=== PATIENT | female | born 2000 | race Caucasian/White ===

== ENCOUNTER 2023-09-12 13:07 | Outpatient (OUT) | payer MEDICAID, SELFPAY ==
[2023-09-12 15:33] LABS: HCG Quantitative 2877 mIU/mL
== END 2023-09-12 13:08 | disposition home or self-care (01) ==
LOC: LAB 13:11
PROVIDERS: PCP Family Medicine; Visit Provider Obstetrics & Gynecology
DX: N92.6 Irregular menstruation, unspecified (principal)
CPT/HCPCS: 36415; 84702

== ENCOUNTER 2023-09-14 11:02 | Outpatient (OUT) | payer MEDICAID, SELFPAY ==
[2023-09-14 12:06] LABS: HCG Quantitative 6390 mIU/mL
== END 2023-09-14 11:03 | disposition home or self-care (01) ==
LOC: LAB 11:03
PROVIDERS: PCP Family Medicine; Visit Provider Obstetrics & Gynecology
DX: N92.6 Irregular menstruation, unspecified (principal)
CPT/HCPCS: 36415; 84702

== ENCOUNTER 2023-10-20 08:22 | Outpatient (OUT) | payer MEDICAID, SELFPAY ==
--- NOTE | 2023-10-20 08:23 | US_ITS ---
[address] [address] Patient Name: BARON MORA MRN: [id number] date: 2000 Sex: F Assigned Patient Location: US Current Patient Location: US Accession/Order Number: [id number] Exam Date: 10/20/2023 08:23 Report Date: 10/20/2023 09:16 At the request of: GONZALEZ LUA Procedure: US OB transvaginal EXAMINATION: US OB transvaginal HISTORY: MISSED MENSES COMPARISON: No relevant comparison available. FINDINGS: Flores intrauterine gestation Gestational sac: 5.2 cm, 11 weeks 0 days CRL: 3.8 cm, 10 weeks 5 days Yolk sac: 5.7 mm Heart rate: 1 64 bpm The uterus is normal, anteverted, anteflexed The cervix measures 4.6 cm in length. 2 mm of dilation of the endocervical canal The right ovary is not visualized Left ovary is normal in appearance Clinical age: 10 weeks 0 days Clinical JUAN: 05/17/2024 Ultrasound age: 10 weeks 5 days Ultrasound JUAN: 05/12/2024 US/US OB transvaginal IMPRESSION: Flores intrauterine gestation measuring 10 weeks 5 days 2 mm dilatation of the endocervical canal Electronically authenticated by: MERRILL CROSS Date: 10/20/2023 09:16
== END 2023-10-20 08:23 | disposition home or self-care (01) ==
LOC: US 08:22
PROVIDERS: PCP Family Medicine; Visit Provider Obstetrics & Gynecology
DX: Z34.91 Encounter for supervision of normal pregnancy, unspecified, first trimester (principal); Z3A.10 10 weeks gestation of pregnancy; N92.6 Irregular menstruation, unspecified
CPT/HCPCS: 76817

== ENCOUNTER 2023-11-20 09:44 | Outpatient (OUT) | payer MEDICAID, SELFPAY ==
--- OUTSIDE RECORDS SUMMARY | 2023-11-20 09:49 | XMS_ITS | CCD ---
Author Name Unknown Address [address] [facility] [address] [place] [address] Organization [facility] Care Team Providers Care Bail Bondsman Name Role Phone NIDA CORONADO Consulting Unavailable NIDA CORONADO Attending Unavailable NIDA CORONADO Admitting Unavailable NADJA, DR ABDIRAHMAN Ibarra Primary Care Unavailable CHANELL, DR ROTH Consulting Unavailable CHANELL, DR ROTH Attending Unavailable NADJA, DR ABDIRAHMAN Ibarra Primary Care Unavailable CHANELL, DR ROTH Admitting Unavailable CHANELL, DR ROTH Attending Unavailable KARASIK, DR LOPEZ Consulting Unavailable CHANELL, DR ROTH Admitting Unavailable NADJA, DR ABDIRAHMAN Ibarra Primary Care Unavailable CHANELL, DR ROTH Consulting Unavailable TITUSEBER, DR JEREMIAS Phan Consulting Unavailable NADJA, DR ABDIRAHMAN Ibarra Primary Care Unavailable KARASIK, DR LOPEZ Admitting Unavailable KARASIK, DR LOPEZ Attending Unavailable KARASIK, DR LOPEZ Consulting Unavailable NADJA, DR ABDIRAHMAN Ibarra Primary Care Unavailable CHANELL, DR ROTH Attending Unavailable CHANELL, DR ROTH Admitting Unavailable NADJA, DR ABDIRAHMAN Ibarra Primary Care Unavailable CHANELL, DR ROTH Attending Unavailable CHANELL, DR ROTH Admitting Unavailable CHANELL, DR ROTH Consulting Unavailable CHANELL, DR ROTH Attending Unavailable CHANELL, DR ROTH Admitting Unavailable NADJA, DR ABDIRAHMAN Ibarra Primary Care Unavailable KARASIK, DR LOPEZ Consulting Unavailable CHANELL, DR ROTH Consulting Unavailable TITUSEBER, DR JEREMIAS Phan Consulting Unavailable NADJA, DR ABDIRAHMAN Ibarra Primary Care Unavailable CHANELL, DR ROTH Attending Unavailable KARASIK, DR LOPEZ Consulting Unavailable CHANELL, DR ROTH Admitting Unavailable CHANELL, DR ROTH Consulting Unavailable ZIEBER, DR JEREMIAS Phan Consulting Unavailable NADJA, DR ABDIRAHMAN Ibarra Primary Care Unavailable KARASIK, DR LOPEZ Consulting Unavailable KARASIK, DR LOPEZ Admitting Unavailable KARASIK, DR LOPEZ Attending Unavailable CHANELL, DR ROTH Consulting Unavailable GELA, DR JEREMIAS Phan Consulting Unavailable NADJA, DR ABDIRAHMAN Ibarra Primary Care Unavailable NIDA CORONADO Attending Unavailable IVONNE, NIDA Admitting Unavailable IVONNE, NIDA Consulting Unavailable NADJA, DR ABDIRAHMAN Ibarra Primary Care Unavailable CHANELL, DR ROTH Attending Unavailable CHANELL, DR ROTH Admitting Unavailable CHANELL, DR ROTH Consulting Unavailable ZIEBMELE, DR JEREMIAS Phan Consulting Unavailable NADJA, DR ABDIRAHMAN Ibarra Primary Care Unavailable CHANELL, DR ROTH Attending Unavailable CHANELL, DR ROTH Admitting Unavailable CHANELL, DR ROTH Consulting Unavailable CHANELL, DR ROTH Attending Unavailable NADJA, DR ABDIRAHMAN Ibarra Primary Care Unavailable CHANELL, DR ROTH Admitting Unavailable ARELI, VJ Attending Unavailable ARELI, VJ Admitting Unavailable NADJA, DR ABDIRAHMAN Ibarra Primary Care Unavailable ARELI, VJ Consulting Unavailable ZENON DELGADO Consulting Unavailable NADJA, DR ABDIRAHMAN Ibarra Primary Care Unavailable CHANELL, DR ROTH Consulting Unavailable CHANELL, DR ROTH Attending Unavailable CHANELL, DR ROTH Admitting Unavailable NADJA, DR ABDIRAHMAN Ibarra Primary Care Unavailable KARASIK, DR LOPEZ Consulting Unavailable KARASIK, DR LOPEZ Admitting Unavailable KARASIK, DR LOPEZ Attending Unavailable CHANELL, DR ROTH Consulting Unavailable TITUSEBER, DR JEREMIAS Phan Consulting Unavailable IVONNE, NIDA Attending Unavailable NADJA, DR ABDIRAHMAN Ibarra Primary Care Unavailable CHANELL, DR ROTH Consulting Unavailable IVONNE, NIDA Admitting Unavailable NIDA CORNOADO Consulting Unavailable ANTHONY PENNY Consulting Unavailable CHANELL, DR ROTH Procedure Practitioner Unavailab le Allergies Allergy Classification Reported Allergen(s) Allergy Type Date of Onset Reaction(s) Facility (1 source) Desonide Drug Allergy [facility] Repository (1 source) Erythromycin Drug Allergy 12-04-[address] [facility] Repository (1 source) Latex Drug allergy (disorder) [facility] Repository (1 source) Shellfish Drug allergy (disorder) 05-31-[address] [facility] Repository Problems Active Problems Problem Classification Problem Date Documented Da te Episodic/Chronic Abdominal pain (4 sources) Unspecified abdominal pain; Translations: [UNSPECIFIED ABDOMINAL PAIN] Onset: 06-01-2022 Episodic Genitourinary symptoms and ill-defined conditions (1 source) Hematuria, unspecified; Translations: [HEMATURIA UNSPECIFIED] Onset: 06-02-2022 Episodic Immunity disorders (1 source) Other specified disorders involving the immune mechanism, not elsewhere classified; Translations: [OTH SPEC D/O INVOLV IMMUNE MECH NEC] Onset: 08-12-2021 Chronic Other inflammatory condition of skin (1 source) Psoriasis, unspecified; Translations: [PSORIASIS UNSPECIFIED] Onset: 08-12-2021 Chronic Unclassified (1 source) CONTACT W/AND (SUSP) EXPOS COVID-19; Translations: [CONTACT W/AND (SUSP) EXPOS COVID-19] Onset: 08-12-2021 Unclassified (1 source) PERSONAL HISTORY OF COVID-19; Translations: [PERSONAL HISTORY OF COVID-19] Onset: 08-12-2021 Past or Other Problems Problem Classification Problem Date Documented Date Episodic/Chronic Hemorrhage during ; abruptio placenta; placenta previa (5 sources) Complete placenta previa NOS or without hemorrhage, third trimester; Translations: [CMPL PLAC PREVIA NOS/WO HEM 3RD TRI] Onset: 07-12-2021 Episodic Other complications of ; puerperium affecting management of mother (3 sources) Other specified complications of labor and delivery; Translations: [OTH SPECIFIED COMP LABOR AND DELIVERY] Onset: 07-14-2021 Episodic Other complications of ; puerperium affecting management of mother (1 source) Streptococcus B carrier state complicating childbirth; Translations: [STREP B [place] STATE COMP CHILDBIRTH] Onset: 08-12-2021 Episodic Other complications of ; puerperium affecting management of mother (1 source) Failed medical induction of labor; Translations: [FAILED MEDICAL INDUCTION OF LABOR] Onset: 08-12-2021 Episodic Other complications of (4 sources) Decreased movements, unspecified trimester, not applicable or unspecified; Translations: [DECR MOVEMENTS UNS TRI NA/UNS] Onset: 07-09-2021 Episodic Other complications of (4 sources) Other specified related conditions, third trimester; Translations: [OTH SPEC PREG RELATED COND 3RD TRI] Onset: 07-08-2021 Episodic Other complications of (4 sources) Malformation of placenta, unspecified, third trimester; Translations: [MALFORMATION PLACENTA UNS 3RD TRI] Onset: 07-05-2021 Episodic Other complications of (1 source) Unspecified placental disorder, third trimester; Translations: [UNS PLACENTAL DISORDER THIRD TRI] Onset: 07-23-2021 Episodic Other complications of (4 sources) Diseases of the skin and subcutaneous tissue complicating , third trimester; Translations: [DZ SKIN SUBQ TISS COMP PREG 3RD TRI] Onset: 06-21-2021 Episodic Other inflammatory condition of skin (1 source) Pruritus, unspecified; Translations: [PRURITUS UNSPECIFIED] Onset: 06-09-2021 Episodic Other and delivery including normal (9 sources) Encounter for routine follow-up; Translations: [Single live ] Onset: 07-01-2021 Episodic Other screening for suspected conditions (not mental disorders or infectious disease) (4 sources) Encounter for screening for Streptococcus B; Translations: [ENC SCR STREPTOCOCCUS B] Onset: 06-28-2021 Episodic Other skin disorders (5 sources) Other skin changes; Translations: [OTHER SKIN CHANGES] Onset: 06-07-2021 Episodic Residual codes; unclassified (1 source) 38 weeks gestation of ; Translations: [38 WEEKS GESTATION OF ] Onset: 08-12-2021 Episodic Residual codes; unclassified (1 source) 37 weeks gestation of ; Translations: [37 WEEKS GESTATION OF ] Onset: 07-22-2021 Episodic Residual codes; unclassified (1 source) 36 weeks gestation of ; Translations: [36 WEEKS GESTATION OF ] Onset: 07-23-2021 Episodic Residual codes; unclassified (1 source) 35 weeks gestation of ; Translations: [35 WEEKS GESTATION OF ] Onset: 06-23-2021 Episodic Residual codes; unclassified (1 source) 34 weeks gestation of ; Translations: [34 WEEKS GESTATION OF ] Onset: 06-18-2021 Episodic Residual codes; unclassified (1 source) 33 weeks gestation of ; Translations: [33 WEEKS GESTATION OF ] Onset: 06-09-2021 Episodic Spondylosis; intervertebral disc disorders; other back problems (1 source) Low back pain; Translations: [LOW BACK PAIN] Onset: 06-23-2021 Episodic Umbilical cord complication (1 source) Labor and delivery complicated by cord around neck, without compression, not applicable or unspecified; Translations: [L AND D COMP CORD NECK NO COMPRS NA/UNS] Onset: 08-12-2021 Episodic Results Test Name Value Interpretation Reference Range Facil ity CBC AUTO DIFFon 06-01-2022 BASO # 0.1 103/ul Normal 0.0-0.1 [facility] Comment on above: Performed By: #### C BC #### [facility] [address] [id number] Rashmi Jessica Basophils/100 WBC (Bld) 0.5 % Normal 0.2-2.0 [facility] Comment on above: Performed By: #### C BC #### [facility] [address] [address] Rashmi Jessica EO # 0.3 103/ul Normal 0.0-0.7 [facility] Comment on above: Performed By: #### C BC #### [facility] [address] [place] [address] Rashmi Jessica Eosinophils/100 WBC (Bld) 3.3 % Normal 0.9-7.0 [facility] Comment on above: Performed By: #### C BC #### [facility] [address] [place] [address] Rashmi Jessica Erythrocyte distribution width (RBC) [Ratio] 13.5 % Normal 11.0-15.0 [facility] Comment on above: Performed By: #### C BC #### [facility] [address] [place], [place] [id number] Rashmi Jessica Hematocrit (Bld) [Volume fraction] 41.8 % Normal 36.0-48.0 [facility] Comment on above: Performed By: #### C BC #### [facility] [address] [place] [address] Rashmi Jessica Hemoglobin (Bld) [Mass/Vol] 13.9 g/dL Normal 12.0-16.[address] [facility] Comment on above: Performed By: #### C BC #### [facility] [address] [place] [address] Rashmi Jessica IG # 0.02 10e3/ul Normal 0.00-0.03 [facility] Comment on above: Performed By: #### C BC #### [facility] [address] [id number] Rashmi Jessica IG % 0.2 % Normal 0.0-0.[address] [facility] Comment on above: Performed By: #### C BC #### [facility] [address] [place] [address] Rashmi Jessica LYMPH # 2.6 103/ul Normal 1.2-3.[address] [facility] Comment on above: Performed By: #### C BC #### [facility] [address] [place], [place] [id number] Rashmi Jessica Lymphocytes/100 WBC (Bld) 27.8 % Normal 20.5-60.[address] [facility] Comment on above: Performed By: #### C BC #### [facility] [address] [place] [address] Rashmi Jessica MANUAL DIFF REQ NO Normal [facility] Comment on above: Performed By: #### C BC #### [facility] [address] [place] [address] Rashmi Jessica MCH (RBC) [Entitic mass] 27.5 pg Normal 26.7-34.0 [facility] Comment on above: Performed By: #### C BC #### [facility] [address] [place] [address] Rashmi Jessica MCHC (RBC) [Mass/Vol] 33.3 g/dL Normal 29.9-35.[address] [facility] Comment on above: Performed By: #### C BC #### [facility] [address] [place] [address] Rashmi Jessica MCV (RBC) [Entitic vol] 82.8 fL Normal 81.0-99.[address] [facility] Comment on above: Performed By: #### C BC #### [facility] [address] [place], [place] [phone] Rashmi Jessica MONO # 1.2 103/ul Critically high 0.3-0.8 [facility] Comment on above: Performed By: #### C BC #### [facility] [address] [place], [place] [phone] Rashmi Jessica Monocytes/100 WBC (Bld) 12.6 % Critically high 1.7-12.0 [facility] Comment on above: Performed By: #### C BC #### [facility] [address] [place], [place] [phone] Rashmi Lopez NEUT # 5.2 103/ul Normal 1.4-6.5 [facility] Comment on above: Performed By: #### C BC #### [facility] [address] [place], [place] [phone] Rashmi Lopez Neutrophils/100 WBC (Bld) 55.6 % Normal 43.0-75.0 [facility] Comment on above: Performed By: #### C BC #### [facility] [address] [place], [place] [phone] Rashmi Lopez Platelet mean volume (Bld) [Entitic vol] 9.4 fL Critically low 9.5-13.5 [facility] Comment on above: Performed By: #### C BC #### [facility] [address] [place], [place] [address] Rashmi Lopez PLT 459 103/ul Critically high 150-450 [facility] Comment on above: Performed By: #### C BC #### [facility] [address] [place], [place] [address] Rashmi Lopez RBC 5.05 106/ul Normal 4.20-5.[address] [facility] Comment on above: Performed By: #### C BC #### [facility] [address] [place], [place] [phone] Rashmi Lopez WBC 9.4 103/ul Normal 4.0-11.0 [facility] Comment on above: Performed By: #### C BC #### [facility] [address] [place] [address] ABD/PELVIS WO CONon 06-01 CT ABD/PELVIS WO CON EXAMINATION: CT ABD/PELVIS WO CON, 06/01/2022 12:02 AM EDT HISTORY: CALCULUS OF KIDNEY COMPARISON: None. TECHNIQUE: CT scan of the abdomen and pelvis was performed without IV contrast. CT dose reduction technique was used, including Automated Exposure Control. FINDINGS: The visualized portions of the lung bases are clear. Abdomen: Please note that the sensitivity for detection of focal lesions or vascular disease is markedly reduced without intravenous contrast. The liver and spleen are unremarkable. There is no intra or extrahepatic biliary duct dilatation. The gallbladder is unremarkable. There is an indeterminate right renal cystic structure measuring up to 1.4 x 1.3 cm (series 3, image 52). There is mild prominence of the left renal collecting system with no renal or ureteral calculi seen. The pancreas, adrenal glands, and bowel loops, including the appendix, are unremarkable. There is no mesenteric or retroperitoneal lymphadenopathy. Pelvis: The bladder and rectum are unremarkable. There is no iliac or inguinal lymphadenopathy. The uterus is present. The left ovary appears within normal limits by CT. The right ovary is not well evaluated. A suspected pelvic phlebolith is noted on the left. Bone windows show no aggressive osseous lesions. IMPRESSION: 1. Mild prominence of the left renal collecting system with no renal or ureteral calculi seen. A suspected pelvic phlebolith is seen on the left. 2. Normal appendix. 3. Indeterminate right renal cystic structure measuring up to 1.4 x 1.3 cm. Further evaluation with a nonemergent outpatient ultrasound or contrast-enhanced MRI examination is recommended. Electronically authenticated by: Pito DELGADO Date: 2022-06-01 01:26 Normal [facility] ER URINE PROFILEon 2 Bilirubin Ql (U) Negative Normal NEGATIVE [facility] Comment on above: Performed By: #### C BC #### [facility] [address] [place] [address] Rashmi Jessica Clarity (U) CLEAR Normal CLEAR [facility] Comment on above: Performed By: #### C BC #### [facility] [address] [place], [place] [phone] Rashmi Jessica Color (U) LT. YELLOW Normal YELLOW [facility] Comment on above: Performed By: #### C BC #### [facility] [address] [place], [place] [phone] Rashmi Jessica ERUAHD A micrscopic examination will be performed if indicated. Normal [facility] Comment on above: Performed By: #### C BC #### [facility] [address] [place], [place] [address] Rashmi Jessica Glucose Ql (U) Negative Normal NEGATIVE [facility] Comment on above: Performed By: #### C BC #### [facility] [address] [place] [address] Rashmi Jessica Hemoglobin Ql (U) LARGE Abnormal NEGATIVE [facility] Comment on above: Performed By: #### C BC #### [facility] [address] [place] [address] Rashmi Jessica Ketones Ql (U) Negative Normal NEGATIVE [facility] Comment on above: Performed By: #### C BC #### [facility] [address] [place] [address] Rashmi Jessica LEUKOCYTES Negative Normal NEGATIVE [facility] Comment on above: Performed By: #### C BC #### [facility] [address] [place] [address] Rashmi Jessica Nitrite Ql (U) Negative Normal NEGATIVE [facility] Comment on above: Performed By: #### C BC #### [facility] [address] [place] [address] Rashmi Jessica pH (U) 6.0 [pH] Normal 5-[address] [facility] Comment on above: Performed By: #### C BC #### [facility] [address] [place] [address] Rashmi Jessica SPEC GRAVITY 1.010 Normal 1.005-<=1.025 [facility] Comment on above: Performed By: #### C BC #### [facility] [address] [place] [address] Rashmi Jessica UA PROTEIN Negative Normal NEGATIVE/ TRACE [facility] Comment on above: Performed By: #### C BC #### [facility] [address] [place] [address] Rashmi Jessica UR MICRO IND INDICATED Normal [facility] Comment on above: Performed By: #### C BC #### [facility] [address] [place] [address] Rashmi Jessica Urobilinogen Qn (U) 0.2 {Saw'U}/dL Normal 0.2 - 1. 0 [facility] Comment on above: Performed By: #### C BC #### [facility] [address], [place] [address] Rashmi Jessica LACTATE/LACTIC ACIDon 2021 Lactate [Moles/Vol] 0.8 mmol/L Normal 0.4-1.9 [facility] Comment on above: Performed By: #### L ACT #### [facility] [id number] Tony Cisneros URon 06-01-2022 , QUAL Negative Normal NEGATIVE [facility] Comment on above: Performed By: #### C BC #### [facility] [address] [phone] Rashmi Jessica PROF CHEM 8 (BAS METB)on Anion gap [Moles/Vol] 11.6 mmol/L Normal [facility] Comment on above: Performed By: #### C BC #### [facility] [address] [place], [place] [address] Rashmi Jessica Calcium [Mass/Vol] 9.2 mg/dL Normal 8.5-10.1 [facility] Comment on above: Performed By: #### C BC #### [facility] [address] [address] Rashmi Jessica Chloride [Moles/Vol] 104 mmol/L Normal 98-[address] [facility] Comment on above: Performed By: #### C BC #### [facility] [address] [place], [place] [address] Rashmi Jessica CO2 [Moles/Vol] 28.0 mmol/L Normal 21.0-32.0 [facility] Comment on above: Performed By: #### C BC #### [facility] [address] [place], [place] [address] Rashmi Jessica Creatinine [Mass/Vol] 0.90 mg/dL Normal 0.55-1.02 [facility] Comment on above: Performed By: #### C BC #### [facility] [address] [address] Rashmi Jessica EGFR-AF NORWEGIAN >60 Normal >=60 [facility] Comment on above: Performed By: #### C BC #### [facility] [address], [place] [address] Rashmi Jessica EGFR-NON AF NORWEGIAN >60 Normal >=60 [facility] Comment on above: Performed By: #### C BC #### [facility] [address], [place] [address] Rashmi Jessica Glucose [Mass/Vol] 101 mg/dL Normal 74-106 [facility] Comment on above: Performed By: #### C BC #### [facility] [address], [place] [address] Rashmi Jessica Potassium [Moles/Vol] 3.6 mmol/L Normal 3.5-5.[address] [facility] Comment on above: Performed By: #### C BC #### [facility] [address] [place], [place] [address] Rashmi Jessica Sodium [Moles/Vol] 140 mmol/L Normal 136-145 [facility] Comment on above: Performed By: #### C BC #### [facility] [address] [place], [place] [address] Rashmi Jessica Urea nitrogen [Mass/Vol] 17.0 mg/dL Normal 7.0-18.0 [facility] Comment on above: Performed By: #### C BC #### [facility] [address] [place], [place] [address] Rashmi Jessica Urea nitrogen/Creatinine [Mass ratio] 18.9 mg/mg Normal [facility] Comment on above: Performed By: #### C BC #### [facility] [address] [place], [place] [address] Rashmi Jessica RAD - CT Reporton 06-01-2022 RAD - CT Report [id number] Normal [facility] URINE MICROSCOPIC ONLYon BACTERIA TRACE Abnormal NONE SEEN [facility] Comment on above: Performed By: #### C BC #### [facility] [address] [place], [place] [address] Rashmi Jessica Bacteria identified Cx Nom (U) NOT INDICATED Normal [facility] Comment on above: Performed By: #### C BC #### [facility] [address] [place] [address] Rashmi Jessica CAST NONE SEEN Normal NONE SEEN [facility] Comment on above: Performed By: #### C BC #### [facility] [address] [place] [address] Rashmi Jessica Crystals LM Nom (Urine sed) NONE SEEN Normal NONE SEEN [facility] Comment on above: Performed By: #### C BC #### [facility] [address] [place] [address] Rashmi Jessica Epithelial cells LM Ql (Urine sed) RARE Normal NONE SEEN /RARE [facility] Comment on above: Performed By: #### C BC #### [facility] [address] [place] [address] Rashmi Jessica MUCOUS NONE SEEN Normal NONE SEEN [facility] Comment on above: Performed By: #### C BC #### [facility] [address] [place] [address] Rashmi Jessica RBC 2-5 Abnormal 0-2 [facility] Comment on above: Performed By: #### C BC #### [facility] [address] [place] [address] Rashmi Jessica WBC NONE SEEN Normal NONE SEEN [facility] Comment on above: Performed By: #### C BC #### [facility] [address] [place], [place] [id number] Rashmiadele Lopez Family Medicine Office/Clini c Noteon 11-23-2021 Family Medicine Office/Clinic Note HPI Staff Lashonda is a 20 year old female who presents with: C/O sinus congestion and cough and body aches. Denies fever, chills, sore throat, SOB, nausea, vomiting, or diarrhea. She has family who has recently tested positive for COVID-19. Symptoms have been present for about 6 days. She has been taking supplements for relief. She is currently . O2 was 99% in the office today on room air/ HR=93. Review of Systems PHQ Score Initial Depression Screen Score: 0 ROS neg. Physical Exam Vitals & Measurements T: 36.2 ?C(Temporal Artery) HR: 93(Peripheral) SpO2: 99% HT: 170.0 cm HT: 170 cm WT: 90.3 kg WT: 90.3 kg BMI: 31.25 General: alert, no acute distress, playful, normal hydration, non ill appearing Skin: warm, dry Head: no trauma, normocephalic Neck: Trachea midline, no adenopathy, no tenderness Eye: normal conjunctiva, sclera clear ENMT: TM's clear, oral mucosa moist, no pharyngeal erythema or exudate Cardiovascular: regular rate and rhythm, normal peripheral perfusion Respiratory: subtle wheeze Chest wall: no deformity Gastrointestinal: soft, non distended, no tenderness, no guarding. Back: No tenderness, Normal ROM, Normal alignment. Extremities: no deformity, no trauma Neurological: oriented x 4, LOC appropriate for age Psychiatric: cooperative, affect appropriate for age, normal judgement, normal psychiatric thoughts Assessment/Plan 1. COVID-19 virus infection (U07.1: COVID-19) z-nasir & prednisone as directed Follow-up No qualifying data available Problem List/Past Medical History Ongoing Plaque psoriasis Historical Psoriasis Scarlet fever Medications predniSONE 10 mg Tab, 1 -, Oral, As Directed Multivitamins with Vitamin B Complex, Vitamin C, Minerals and L-Methylfolate oral capsule, 1 cap(s), Oral, Daily Allergies azithromycin (hives) Social History Alcohol - Denies Alcohol Use, 05/17/2016 Current, 07/11/2018 Substance Abuse - Denies Substance Abuse, 05/17/2016 Current, 07/11/2018 Tobacco - Denies Tobacco Use, 05/17/2016 Family History Family history is negative Normal [facility] Comment on above: Result Comment: Elec tronically Signed By: Abdirahman SAEZ DO\.br\Date and Time Signed: 11/23/21 21:08 EST\.br\Electronically Co-Signed By: Gaby Sesay\.br\Date and Time Co-Signed: 11/23/21 18:14 EST Family Medicine Office/Clini c Noteon 11-15-2021 Family Medicine Office/Clinic Note HPI Staff Lashonda is a 20 year old female who presents with psoriasis. She has not seen any specialists for this concern. She has tried topical steroids in the past, but states they made it worse. History of Present Illness I have reviewed and verified the staff HPI to be accurate for this encounter. Review of Systems PHQ Score Initial Depression Screen Score: 0 Constitutional: no fever, no chills, no sweats, no weakness Respiratory: no shortness of breath, no cough, no orthopnea, no wheezing Cardiovascular: no chest pain, no palpitations, no edema Additional ROS info: Except as noted in the above Review of Systems and in the History of Present Illness all other systems have been reviewed and are negative or noncontributory. Physical Exam Vitals & Measurements T: 36.3 ?C(Temporal Artery) HR: 88(Peripheral) BP: 124/82 SpO2: 99% HT: 170.1 cm HT: 170.1 cm WT: 90.3 kg WT: 90.3 kg BMI: 31.21 Gen: NAD. Skin: Diffuse psoriatic changes on skin Assessment/Plan 1. Plaque psoriasis (L40.0: Psoriasis vulgaris) Consider Peptide therapy. Consider group B strep therapy. Follow-up With When Contact Information Abdirahman SAEZ DO, [facility] Only if needed [address] [place] [address]- Additional Instructions: Problem List/Past Medical History Ongoing Plaque psoriasis Historical Psoriasis Scarlet fever Medications Multivitamins with Vitamin B Complex, Vitamin C, Minerals and L-Methylfolate oral capsule, 1 cap(s), Oral, Daily Allergies azithromycin (hives) Social History Alcohol - Denies Alcohol Use, 05/17/2016 Current, 07/11/2018 Substance Abuse - Denies Substance Abuse, 05/17/2016 Current, 07/11/2018 Tobacco - Denies Tobacco Use, 05/17/2016 Family History Family history is negative Normal [facility] Comment on above: Result Comment: Elec tronically Signed By: Abdirahman SAEZ DO\.br\Date and Time Signed: 11/15/21 15:26 EST AMYLASEon 07-18-2021 Amylase [Catalytic activity/Vol] 38 U/L Normal 31-110 [facility] Comment on above: Performed By: #### C MP, JONATHAN, LDH, ALT, AST, URIC, LIPA #### [facility] [address], [place] [address] Rashmiadele Lopez CBC AUTO DIFFon 07-18-2021 BASO # 0.0 103/ul Normal 0.0-0.[address] [facility] Comment on above: Performed By: #### C BC #### [facility] [address], [place] [address] Rashmi Jessica Basophils/100 WBC (Bld) 0.3 % Normal 0.2-2.0 [facility] Comment on above: Performed By: #### C BC #### [facility] [address], [place] [address] Rashmi Jessica EO # 0.1 103/ul Normal 0.0-0.7 [facility] Comment on above: Performed By: #### C BC #### [facility] [address], [place] [address] Rashmi Jessica Eosinophils/100 WBC (Bld) 0.8 % Critically low 0.9-7.0 [facility] Comment on above: Performed By: #### C BC #### [facility] [address] [phone] Rashmi Jessica Erythrocyte distribution width (RBC) [Ratio] 13.4 % Normal 11.0-15.0 [facility] Comment on above: Performed By: #### C BC #### [facility] [address] [phone] Rashmi Jessica Hematocrit (Bld) [Volume fraction] 27.0 % Critically low 36.0-48.0 [facility] Comment on above: Performed By: #### C BC #### [facility] [address], [place] [address] Rashmi Jessica Hemoglobin (Bld) [Mass/Vol] 9.1 g/dL Critically low 12.0-16.0 [facility] Comment on above: Performed By: #### C BC #### [facility] [address], [place] [address] Rashmi Jessica IG # 0.18 10e3/ul Critically high 0.00-0.03 [facility] Comment on above: Performed By: #### C BC #### [facility] [address] [phone] Rashmi Jessica IG % 1.2 % Critically high 0.0-0.5 [facility] Comment on above: Performed By: #### C BC #### [facility] [address], [place] [address] Rashmi Jessica LYMPH # 1.0 103/ul Critically low 1.2-3.8 [facility] Comment on above: Performed By: #### C BC #### [facility] [address], [place] [address] Rashmi Jessica Lymphocytes/100 WBC (Bld) 7.0 % Critically low 20.5-60.0 [facility] Comment on above: Performed By: #### C BC #### [facility] [address] [place] [address] Rashmi Jessica MANUAL DIFF REQ NO Normal [facility] Comment on above: Performed By: #### C BC #### [facility] [address] [place] [address] Rashmi Jessica MCH (RBC) [Entitic mass] 28.1 pg Normal 26.7-34.0 [facility] Comment on above: Performed By: #### C BC #### [facility] [address] [place], [place] [phone] Rashmi Jessica MCHC (RBC) [Mass/Vol] 33.7 g/dL Normal 29.9-35.[address] [facility] Comment on above: Performed By: #### C BC #### [facility] [address] [place], [place] [phone] Rashmi Jessica MCV (RBC) [Entitic vol] 83.3 fL Normal 81.0-99.[address] [facility] Comment on above: Performed By: #### C BC #### [facility] [address] [place], [place] [phone] Rashmi Jessica MONO # 1.1 103/ul Critically high 0.3-0.8 [facility] Comment on above: Performed By: #### C BC #### [facility] [address] [place], [place] [phone] Rashmi Jessica Monocytes/100 WBC (Bld) 7.2 % Normal 1.7-12.[address] [facility] Comment on above: Performed By: #### C BC #### [facility] [address] [phone] Rashmi Casillasen NEUT # 12.2 103/ul Critically high 1.4-6.5 [facility] Comment on above: Performed By: #### C BC #### [facility] [address] [phone] Rashmi Lopez Neutrophils/100 WBC (Bld) 83.5 % Critically high 43.0-75.[address] [facility] Comment on above: Performed By: #### C BC #### [facility] [address] [place], [place] [phone] Rashmi Lopez Platelet mean volume (Bld) [Entitic vol] 11.2 fL Normal 9.5-13.[address] [facility] Comment on above: Performed By: #### C BC #### [facility] [address] [place], [place] [address] Rashmi Jessica PLT 348 103/ul Normal 150-[address] [facility] Comment on above: Performed By: #### C BC #### [facility] [address] [place], [place] [address] Rashmi Jessica RBC 3.24 106/ul Critically low 4.20-5.40 [facility] Comment on above: Performed By: #### C BC #### [facility] [address] [place], [place] [address] Rashmi Lopez WBC 14.6 103/ul Critically high 4.0-11.0 [facility] Comment on above: Performed By: #### C BC #### [facility] [address] [place] [address] Rashmi Lopez LDHon 07-18-2021 LDH 211 U/L Normal 122-[address] [facility] Comment on above: Performed By: #### L ACT #### [facility] [address] [place], [place] [phone] Dr. Tony Cisneros LIPASEon 07-18-2021 Lipase [Catalytic activity/Vol] 68.0 U/L Normal 23.0-300.[address] [facility] Comment on above: Performed By: #### C MP, JONATHAN, LDH, ALT, AST, URIC, LIPA #### [facility] [address] [address] Rashmi Lopez PROF 14(COMP METB)on 021 Albumin [Mass/Vol] 2.4 g/dL Critically low 3.5-5.0 [facility] Comment on above: Performed By: #### L ACT #### [facility] [address] [place] [address] Dr. Tony Cisneros Albumin/Globulin [Mass ratio] 0.7 {ratio} Normal [facility] Comment on above: Performed By: #### L ACT #### [facility] [address] [address] [address] Tony Cisneros ALP [Catalytic activity/Vol] 116 U/L Normal 38-126 [facility] Comment on above: Performed By: #### L ACT #### [facility] [address] [place] [address] Dr. Tony Cisneros Anion gap [Moles/Vol] 13.7 mmol/L Normal [facility] Comment on above: Performed By: #### L ACT #### [facility] [address] [address] [address] Tony Cisneros Bilirubin [Mass/Vol] 0.2 mg/dL Normal 0.2-1.3 [facility] Comment on above: Performed By: #### L ACT #### [facility] [address] [place] [address] Dr. Tony Cisneros Calcium [Mass/Vol] 7.8 mg/dL Critically low 8.4-10.2 [facility] Comment on above: Performed By: #### L ACT #### [facility] [address] [place] [address] Dr. Tony Cisneros Chloride [Moles/Vol] 105 mmol/L Normal 98-107 [facility] Comment on above: Performed By: #### L ACT #### [facility] [address] [place] [address] Dr. Tony Cisneros CO2 [Moles/Vol] 26.9 mmol/L Normal 22.0-30.0 [facility] Comment on above: Performed By: #### L ACT #### [facility] [address] [address] [address] Tony Cisneros Creatinine [Mass/Vol] 0.58 mg/dL Normal 0.52-1.04 [facility] Comment on above: Performed By: #### L ACT #### [facility] [address] [address] [address] Tony Cisneros EGFR-AF NORWEGIAN >60 Normal >=60 [facility] Comment on above: Performed By: #### L ACT #### [facility] [address] [address] [address] Tony Cisneros EGFR-NON AF NORWEGIAN >60 Normal >=60 [facility] Comment on above: Performed By: #### L ACT #### [facility] [address] [place] [address] Dr. Tony Cisneros Globulin (S) [Mass/Vol] 3.5 g/dL Normal [facility] Comment on above: Performed By: #### L ACT #### [facility] [address] [place] [address] Dr. Tony Cisneros Glucose [Mass/Vol] 95 mg/dL Normal 74-106 [facility] Comment on above: Performed By: #### L ACT #### [facility] [address] [place] [address] Dr. Tony Cisneros Potassium [Moles/Vol] 3.6 mmol/L Normal 3.4-5.0 [facility] Comment on above: Performed By: #### L ACT #### [facility] [address] [address] [address] Tony Cisneros Protein [Mass/Vol] 5.9 g/dL Critically low 6.1-8.2 [facility] Comment on above: Performed By: #### L ACT #### [facility] [address] [place] [address] Dr. Tony Cisneros Sodium [Moles/Vol] 142 mmol/L Normal 137-145 [facility] Comment on above: Performed By: #### L ACT #### [facility] [address] [place] [address] Dr. Tony Cisneros Urea nitrogen [Mass/Vol] 5.0 mg/dL Critically low 7.0-17.0 [facility] Comment on above: Performed By: #### L ACT #### [facility] [address] [place] [address] Dr. Tony Cisneros Urea nitrogen/Creatinine [Mass ratio] 8.6 mg/mg Normal [facility] Comment on above: Performed By: #### L ACT #### [facility] [address] [place] [address] Dr. Tony Cisneros SGOTon 07-18-2021 AST [Catalytic activity/Vol] 21 U/L Normal 14-[address] [facility] Comment on above: Performed By: #### L ACT #### [facility] [address] [place] [address] [facility] ALT [Catalytic activity/Vol] 14 U/L Normal 9-[address] [facility] Comment on above: Performed By: #### L ACT #### [facility] [address] [place] [address] Dr. Tony Cisneros URIC ACID SERUMon 07-18-2021 Urate [Mass/Vol] 3.4 mg/dL Normal 2.5-6.2 [facility] Comment on above: Performed By: #### L ACT #### [facility] [address] [place] [address] Dr. Tony Cisneros CBC AUTO DIFFon 07-17-2021 BASO # 0.0 103/ul Normal 0.0-0.[address] [facility] Comment on above: Performed By: #### C BC #### [facility] [address] [place] [address] Rashmi Jessica Basophils/100 WBC (Bld) 0.1 % Critically low 0.2-2.[address] [facility] Comment on above: Performed By: #### C BC #### [facility] [address] [place] [address] Rashmi Jessica EO # 0.0 103/ul Normal 0.0-0.[address] [facility] Comment on above: Performed By: #### C BC #### [facility] [address] [phone] Rashmi Jessica Eosinophils/100 WBC (Bld) 0.1 % Critically low 0.9-7.[address] [facility] Comment on above: Performed By: #### C BC #### [facility] [address] [place], [place] [address] Rashmi Jessica Erythrocyte distribution width (RBC) [Ratio] 13.3 % Normal 11.0-15.[address] [facility] Comment on above: Performed By: #### C BC #### [facility] [address] [place], [place] [address] Rashmi Jessica Hematocrit (Bld) [Volume fraction] 28.5 % Critically low 36.0-48.[address] [facility] Comment on above: Performed By: #### C BC #### [facility] [address] [place] [address] Rashmi Jessica Hemoglobin (Bld) [Mass/Vol] 9.3 g/dL Critically low 12.0-16.0 [facility] Comment on above: Performed By: #### C BC #### [facility] [address] [place], [place] [address] Rashmi Jessica IG # 0.18 10e3/ul Critically high 0.00-0.03 [facility] Comment on above: Performed By: #### C BC #### [facility] [address] [place], [place] [address] Rashmi Jessica IG % 0.8 % Critically high 0.0-0.5 [facility] Comment on above: Performed By: #### C BC #### [facility] [address] [place], [place] [address] Rashmi Jessica LYMPH # 1.1 103/ul Critically low 1.2-3.8 [facility] Comment on above: Performed By: #### C BC #### [facility] [address] [place], [place] [address] Rashmi Jessica Lymphocytes/100 WBC (Bld) 4.9 % Critically low 20.5-60.[address] [facility] Comment on above: Performed By: #### C BC #### [facility] [address] [place], [place] [address] Rashmi Lopez MANUAL DIFF REQ NO Normal [facility] Comment on above: Performed By: #### C BC #### [facility] [address] [place], [place] [address] Rashmiadele Lopez MCH (RBC) [Entitic mass] 27.7 pg Normal 26.7-34.[address] [facility] Comment on above: Performed By: #### C BC #### [facility] [address] [place] [address] Rashmi Lopez MCHC (RBC) [Mass/Vol] 32.6 g/dL Normal 29.9-35.[address] [facility] Comment on above: Performed By: #### C BC #### [facility] [address] [place] [address] Rashmiadele Lopez MCV (RBC) [Entitic vol] 84.8 fL Normal 81.0-99.[address] [facility] Comment on above: Performed By: #### C BC #### [facility] [address] [place] [address] Rashmi Jessica MONO # 1.8 103/ul Critically high 0.3-0.8 [facility] Comment on above: Performed By: #### C BC #### [facility] [address] [place], [place] [address] Rashmi Jessica Monocytes/100 WBC (Bld) 8.1 % Normal 1.7-12.[address] [facility] Comment on above: Performed By: #### C BC #### [facility] [address] [place] [address] Rashmi Jessica NEUT # 18.9 103/ul Critically high 1.4-6.5 [facility] Comment on above: Performed By: #### C BC #### [facility] [address] [place], [place] [address] Rashmi Jessica Neutrophils/100 WBC (Bld) 86.0 % Critically high 43.0-75.[address] [facility] Comment on above: Performed By: #### C BC #### [facility] [address] [place], [place] [address] Rashmi Jessica Platelet mean volume (Bld) [Entitic vol] 9.9 fL Normal 9.5-13.5 [facility] Comment on above: Performed By: #### C BC #### [facility] [address] [place] [address] Rashmi Lopez PLT 409 103/ul Normal 150-[address] [facility] Comment on above: Performed By: #### C BC #### [facility] [address] [place], [place] [address] Rashmi Lopez RBC 3.36 106/ul Critically low 4.20-5.40 [facility] Comment on above: Performed By: #### C BC #### [facility] [address] [place], [place] [address] Rashmi Lopez WBC 22.0 103/ul Critically high 4.0-11.0 [facility] Comment on above: Performed By: #### C BC #### [facility] [address] [place] [address] Rashmi Lopez ASYMPTOMATIC COVID-19 ANTIGE Non 07-14-2021 EUA Statement SEE BELOW Normal [facility] Comment on above: Result Comment: This test has not been FDA cleared or approved, but has been authorized by the FDA under an Emergency Use Authorization (EUA) for use by authorized laboratories certified under CLIA that meet the requirements to perform moderate or high complexity testing. This test has been authorized only for the detection of proteins from SARS-CoV-2, not for any other viruses or pathogens. The emergency use of this test is authorized for the duration of the declaration that circumstances exist justifying the authorization of emergency use of in vitro diagnostic tests for detection and/or diagnosis of Covid-19 under section 564(b)(1) of the Act, 21 U.S.C. 360bbb-3(b)(1), unless the declaration is terminated or authorization is revoked sooner. Performed By: #### C VDAGA #### [facility] [address] [place] [address] Rashmi Jessica SARS-CoV-2 (COVID-19) RNA CHRISTOPHER+probe Ql (Unsp spec) Negative Normal NEGATIVE [facility] Comment on above: Result Comment: Nega tive results are presumptive. They do not preclude infection and should not be used as the sole basis for treatment decisions. Additional confirmatory testing by a molecular method should be considered. Performed By: #### C VDAGA #### [facility] [address] [place], [place] [address] Rashmi Jessica CBC AUTO DIFFon 07-14-2021 BASO # 0.1 103/ul Normal 0.0-0.1 [facility] Comment on above: Performed By: #### C BC #### [facility] [address] [id number] Rashmi Jessica Basophils/100 WBC (Bld) 0.3 % Normal 0.2-2.[address] [facility] Comment on above: Performed By: #### C BC #### [facility] [address] [place], [place] [address] Rashmi Jessica EO # 0.1 103/ul Normal 0.0-0.[address] [facility] Comment on above: Performed By: #### C BC #### [facility] [address] [place], [place] [address] Rashmi Jessica Eosinophils/100 WBC (Bld) 0.7 % Critically low 0.9-7.[address] [facility] Comment on above: Performed By: #### C BC #### [facility] [address] [place], [place] [address] Rashmi Jessica Erythrocyte distribution width (RBC) [Ratio] 13.1 % Normal 11.0-15.[address] [facility] Comment on above: Performed By: #### C BC #### [facility] [address] [place], [place] [id number] Rashmi Jessica Hematocrit (Bld) [Volume fraction] 33.5 % Critically low 36.0-48.[address] [facility] Comment on above: Performed By: #### C BC #### [facility] [address] [place], [place] [id number] Rashmi Jessica Hemoglobin (Bld) [Mass/Vol] 11.2 g/dL Critically low 12.0-16.[address] [facility] Comment on above: Performed By: #### C BC #### [facility] [address] [id number] Rashmi Jessica IG # 0.14 10e3/ul Critically high 0.00-0.03 [facility] Comment on above: Performed By: #### C BC #### [facility] [address] [place], [place] [address] Rashmi Jessica IG % 0.9 % Critically high 0.0-0.5 The [facility] Comment on above: Performed By: #### C BC #### [facility] [address] [place], [place] [address] Rashmi Jessica LYMPH # 1.7 103/ul Normal 1.2-3.[address] [facility] Comment on above: Performed By: #### C BC #### [facility] [address] [place] [address] Rashmi Jessica Lymphocytes/100 WBC (Bld) 11.4 % Critically low 20.5-60.0 [facility] Comment on above: Performed By: #### C BC #### [facility] [address] [place] [address] Rashmiadele Lopez MANUAL DIFF REQ NO Normal [facility] Comment on above: Performed By: #### C BC #### [facility] [address] [place], [place] [id number] Rashmi Jessica MCH (RBC) [Entitic mass] 27.6 pg Normal 26.7-34.0 [facility] Comment on above: Performed By: #### C BC #### [facility] [address] [place], [place] [id number] Rashmiadele Lopez MCHC (RBC) [Mass/Vol] 33.4 g/dL Normal 29.9-35.[address] [facility] Comment on above: Performed By: #### C BC #### [facility] [address] [place], [place] [address] Rashmi Jessica MCV (RBC) [Entitic vol] 82.5 fL Normal 81.0-99.0 [facility] Comment on above: Performed By: #### C BC #### [facility] [address] [place] [address] Rashmi Jessica MONO # 1.5 103/ul Critically high 0.3-0.8 [facility] Comment on above: Performed By: #### C BC #### [facility] [address] [place], [place] [address] Rashmi Lopez Monocytes/100 WBC (Bld) 10.2 % Normal 1.7-12.[address] [facility] Comment on above: Performed By: #### C BC #### [facility] [address] [id number] Rashmi Lopez NEUT # 11.5 103/ul Critically high 1.4-6.5 The [facility] Comment on above: Performed By: #### C BC #### [facility] [address] [place], [place] [address] Rashmi Lopez Neutrophils/100 WBC (Bld) 76.5 % Critically high 43.0-75.0 [facility] Comment on above: Performed By: #### C BC #### [facility] [address] [place], [place] [address] Rashmi Lopez Platelet mean volume (Bld) [Entitic vol] 10.0 fL Normal 9.5-13.[address] [facility] Comment on above: Performed By: #### C BC #### [facility] [address] [place], [place] [address] Rashmi Lopez PLT 365 103/ul Normal 150-[address] [facility] Comment on above: Performed By: #### C BC #### [facility] [address] [place], [place] [address] Rashmi Lopez RBC 4.06 106/ul Critically low 4.20-5.40 [facility] Comment on above: Performed By: #### C BC #### [facility] [address] [place], [place] [address] Rashmiadele Casillasen WBC 15.1 103/ul Critically high 4.0-11.0 The [facility] Comment on above: Performed By: #### C BC #### [facility] [address] [place], [place] [address] Rashmi Lopez DRUG SCREEN RAPID (URINE)on 07-14-2021 AMP Negative Normal NEGATIVE [facility] Comment on above: Performed By: #### C BC #### [facility] [address] [place] [address] Rashmi Jessica BAR Negative Normal NEGATIVE [facility] Comment on above: Performed By: #### C BC #### [facility] [address] [place] [address] Rashmi Jessica BUP Negative Normal NEGATIVE [facility] Comment on above: Performed By: #### C BC #### [facility] [address] [place] [address] Rashmi Jessica BZO Negative Normal NEGATIVE [facility] Comment on above: Performed By: #### C BC #### [facility] [address] [place] [address] Rashmi Jessica NOHEMI Negative Normal NEGATIVE [facility] Comment on above: Performed By: #### C BC #### [facility] [address] [place] [address] [facility] SEE BELOW Normal [facility] Comment on above: Result Comment: AMP (Amphetamine): 500ng/mL, BAR (Barbituates): 200 ng/mL, BZO (Benzodiazepines): 150 ng/mL, BUP (Buprenorphine): 10 ng/mL, NOHEMI (Cocaine): 150 ng/mL, mAMP (Methamphetamine): 500 ng/mL, MTD (Methadone): 200 ng/mL, OPI (Opiates): 100 ng/mL, OXY (Oxycodone): 100 ng/mL, PCP (Phencyclidine): 25 ng/mL, PPX (Propoxyphene): 300 ng/mL, THC (Cannabinoids): 50 ng/mL, TCA (Trycyclic Antidepressants): 300 ng/mL Performed By: #### C BC #### [facility] [address] [place] [address] [facility] HEADER DRUG CLASS TEST SYSTEM CUT-OFF CONCENTRATIONS ARE FOLLOWS: Normal [facility] Comment on above: Performed By: #### C BC #### [facility] [address] [place] [address] Rashmi Jessica mAMP Negative Normal NEGATIVE [facility] Comment on above: Performed By: #### C BC #### [facility] [address] [address] Rashmi Jessica MTD Negative Normal NEGATIVE [facility] Comment on above: Performed By: #### C BC #### [facility] [address] [address] Rashmi Jessica OPI Negative Normal NEGATIVE [facility] Comment on above: Performed By: #### C BC #### [facility] [address] [place] [address] Rashmi Jessica OXY Negative Normal NEGATIVE [facility] Comment on above: Performed By: #### C BC #### [facility] [address] [place] [address] Rashmi Jessica PCP Negative Normal NEGATIVE [facility] Comment on above: Performed By: #### C BC #### [facility] [address] [place] [address] Rashmi Jessica PPX Negative Normal NEGATIVE [facility] Comment on above: Performed By: #### C BC #### [facility] [address] [place] [address] Rashmi Jessica TCA Negative Normal NEGATIVE [facility] Comment on above: Performed By: #### C BC #### [facility] [address] [place] [address] Rashmi Jessica THC Negative Normal NEGATIVE [facility] Comment on above: Performed By: #### C BC #### [facility] [address] [place] [address] Rashmi Jessica TYPE AND SCREENon 07-14-2021 TYPE AND SCREEN Negative Normal [facility] Comment on above: Performed By: #### B ILEACD #### [facility] [address] [place] [address] Rashmi Jessica US PREG BIOPHY W NON STRESSo n 07-12-2021 US PREG BIOPHY W NON STRESS EXAMINATION: US PREG BIOPHY W NON STRESS HISTORY: Anomaly of placenta COMPARISON: No relevant comparison available. TECHNIQUE: Ultrasound biophysical profile was performed. FINDINGS: BREATHING MOVEMENTS: 2.0 GROSS BODY MOVEMENTS: 2.0 TONE: 2.0 QUALITATIVE AMNIOTIC FLUID VOLUME: 2.0 PRESENTATION: CEPHALIC HEART RATE: 142.1 bpm bpm. AMNIOTIC FLUID VOLUME: 11.8 cm GESTATIONAL AGE: 38 weeks 4 days CONCLUSION: 1. Total biophysical profile score 8.0. 2. Unilateral dilated renal pelvis and calyces of uncertain etiology. It is uncertain whether this is on the right or left due to lack of reference on today's study. 3. Aging placenta with numerous calcifications. Electronically authenticated by: JEREMIAS REN Date: 2021-07-12 10:53 Normal [facility] US PREG BIOPHY W NON STRESSo n 07-05-2021 US PREG BIOPHY W NON STRESS EXAMINATION: US PREG BIOPHY W NON STRESS HISTORY: Anomaly of placenta COMPARISON: Ultrasound biophysical 06/28/2021 TECHNIQUE: Ultrasound biophysical profile was performed. FINDINGS: BREATHING MOVEMENTS: 2.0 GROSS BODY MOVEMENTS: 2.0 TONE: 2.0 QUALITATIVE AMNIOTIC FLUID VOLUME: 2.0 PRESENTATION: CEPHALIC HEART RATE: 137.1 bpm bpm. AMNIOTIC FLUID VOLUME: 11.5 cm GESTATIONAL AGE: 37 weeks 4 days CONCLUSION: 1. Total biophysical profile score 8.0. 2. Aging placenta containing numerous calcifications. Electronically authenticated by: JEREMIAS REN Date: 2021-07-05 10:36 Normal [address] [facility] GROUP B STREP CULTUREon 06-14 S. agalactiae Ag Ql (Unsp spec) Isolate 1 Streptococcus agalactiae Light growth of ORGANISM 1 Streptococcus agalactiae ANTIBIOTIC M.I.C RX STATUS Benzylpenicillin <=0.06 S F Ampicillin <=0.25 S F Cefotaxime <=0.12 S F Ceftriaxone <=0.12 S F Levofloxacin 1 S F Erythromycin 2 R F Clindamycin <=0.25 S F Linezolid <=2 S F Vancomycin 0.5 S F Tetracycline >=16 R F Normal [facility] Comment on above: Performed By: #### L ACT #### [facility] [address] [place] [address] Dr. Tony Cisneros Family Medicine Office/Clini c Noteon 06-30-2021 Family Medicine Office/Clinic Note HPI Staff Lashonda is a 20 year old female who presents to discuss upcoming of her baby. States she is due July 22, 2021. History of Present Illness I have reviewed and verified the staff HPI to be accurate for this encounter. Review of Systems PHQ Score Initial Depression Screen Score: 0 Constitutional: no fever, no chills, no sweats, no weakness Respiratory: no shortness of breath, no cough, no orthopnea, no wheezing Cardiovascular: no chest pain, no palpitations, no edema Additional ROS info: Except as noted in the above Review of Systems and in the History of Present Illness all other systems have been reviewed and are negative or noncontributory. Physical Exam Vitals & Measurements T: 36.2 ?C (Temporal Artery) HR: 98(Peripheral) BP: 132/78 SpO2: 99% HT: 170.1 cm HT: 170.1 cm WT: 97.5 kg WT: 97.5 kg BMI: 33.7 Assessment/Plan 1. Psoriasis (L40.9: Psoriasis, unspecified) Ordered: Office Visit Level 3 Est 35654 Follow-up No qualifying data available Problem List/Past Medical History Ongoing Psoriasis Historical Psoriasis Scarlet fever Medications Multivitamins with Vitamin B Complex, Vitamin C, Minerals and L-Methylfolate oral capsule, 1 cap(s), Oral, Daily Allergies azithromycin (hives) Social History Alcohol - Denies Alcohol Use, 05/17/2016 Current, 07/11/2018 Substance Abuse - Denies Substance Abuse, 05/17/2016 Current, 07/11/2018 Tobacco - Denies Tobacco Use, 05/17/2016 Family History Family history is negative Normal [facility] Comment on above: Result Comment: Elec tronically Signed By: Abdirahman SAEZ DO\.br\Date and Time Signed: 06/30/21 21:05 EDT Ambulatory Clinical Summaryo n 06-29-2021 Ambulatory Clinical Summary {[id number] Normal [facility] US PREG BIOPHY W NON STRESSo n 06-28-2021 US PREG BIOPHY W NON STRESS EXAMINATION: US PREG BIOPHY W NON STRESS HISTORY: Anomaly of placenta COMPARISON: Ultrasound biophysical 06/21/2021 TECHNIQUE: Ultrasound biophysical profile was performed. FINDINGS: BREATHING MOVEMENTS: 2.0 GROSS BODY MOVEMENTS: 2.0 TONE: 2.0 QUALITATIVE AMNIOTIC FLUID VOLUME: 2.0 PRESENTATION: CEPHALIC HEART RATE: 140.6 bpm bpm. AMNIOTIC FLUID VOLUME: 12.8 cm GESTATIONAL AGE: 36 weeks 4 days CONCLUSION: 1. Total biophysical profile score 8.0. 2. Aging placenta. Electronically authenticated by: JEREMIAS REN Date: 2021-06-28 10:51 Normal [address] [facility] US PREG BIOPHY W NON STRESSo n 06-21-2021 US PREG BIOPHY W NON STRESS EXAMINATION: US PREG BIOPHY W NON STRESS HISTORY: Disorder of immune function COMPARISON: No relevant comparison available. TECHNIQUE: Ultrasound biophysical profile was performed in the radiology department. non-reactive stress testing was performed by nursing staff in the birthing center. FINDINGS: BREATHING MOVEMENTS: 2.0 GROSS BODY MOVEMENTS: 2.0 TONE: 2.0 QUALITATIVE AMNIOTIC FLUID VOLUME: 2.0 PRESENTATION: Cephalic HEART RATE: 139.9 bpm AMNIOTIC FLUID VOLUME: 11.0 cm GESTATIONAL AGE: 35 weeks 4 days IMPRESSION: 1. Total biophysical profile score: 8.0 2. Aging placenta with numerous calcifications. Electronically authenticated by: JEREMIAS REN Date: 2021-06-21 09:57 Normal [address] [facility] CULTURE URINEon 06-19-2021 CULTURE URINE Culture Observations : HEAVY GROWTH OF MIXED GENITAL REMBERTO. NO POTENTIAL PATHOGENS SEEN. Normal [facility] Comment on above: Performed By: #### B ILEACD #### [facility] [address] [place] [address] Rashmiadele Casillasen UA (CLEAN/CATCH) MICROSCOPIC IF INDICATEon 06-19-2021 Bilirubin Ql (U) Negative Normal NEGATIVE [facility] Comment on above: Performed By: #### L ACT #### [facility] [address] [place] [address] Dr. Tony Cisneros Clarity (U) CLEAR Normal CLEAR [facility] Comment on above: Performed By: #### L ACT #### [facility] [address] [place] [address] Dr. Tony Cisneros Color (U) LT. YELLOW Normal YELLOW [facility] Comment on above: Performed By: #### L ACT #### [facility] [address] [place] [address] Dr. Tony Cisneros Glucose Ql (U) Negative Normal NEGATIVE [facility] Comment on above: Performed By: #### L ACT #### [facility] [address] [place] [address] Dr. Tony Cisneros Hemoglobin Ql (U) Negative Normal NEGATIVE [facility] Comment on above: Performed By: #### L ACT #### [facility] [address] [place] [address] Dr. Tony Cisneros Ketones Ql (U) Negative Normal NEGATIVE [facility] Comment on above: Performed By: #### L ACT #### [facility] [address] [place] [address] Dr. Tony Cisneros LEUKOCYTES SMALL Abnormal NEGATIVE [facility] Comment on above: Performed By: #### L ACT #### [facility] [address] [place] [address] Dr. Tony Cisneros Nitrite Ql (U) Negative Normal NEGATIVE [facility] Comment on above: Performed By: #### L ACT #### [facility] [address] [place] [address] Dr. Tony Cisneros pH (U) 7.0 [pH] Normal 5-9 [facility] Comment on above: Performed By: #### L ACT #### [facility] [address] [place] [address] Dr. Tony Cisneros SPEC GRAVITY 1.010 Normal 1.005-<=1.025 [facility] Comment on above: Performed By: #### L ACT #### [facility] [address] [place] [address] Dr. Tony Cisneros UA PROTEIN Negative Normal NEGATIVE/ TRACE [facility] Comment on above: Performed By: #### L ACT #### [facility] [address] [place] [address] Dr. Tony Cisneros UR MICRO IND INDICATED Normal [facility] Comment on above: Performed By: #### L ACT #### [facility] [address] [place] [address] Dr. Tony Cisneros Urobilinogen Qn (U) 0.2 {Saw'U}/dL Normal 0.2 - 1. 0 [facility] Comment on above: Performed By: #### L ACT #### [facility] [address] [place] [address] Dr. Tony Cisneros URINE MICROSCOPIC ONLYon BACTERIA SMALL Abnormal NONE SEEN [facility] Comment on above: Performed By: #### L ACT #### [facility] [address] [place] [address] Dr. Tony Cisneros Bacteria identified Cx Nom (U) INDICATED Normal [facility] Comment on above: Performed By: #### L ACT #### [facility] [address] [place] [address] Dr. Tony Cisneros CAST NONE SEEN Normal NONE SEEN [facility] Comment on above: Performed By: #### L ACT #### [facility] [address] [place] [address] Dr. Tony Cisneros Crystals LM Nom (Urine sed) NONE SEEN Normal NONE SEEN [facility] Comment on above: Performed By: #### L ACT #### [facility] [address] [place] [address] Dr. Tony Cisneros Epithelial cells LM Ql (Urine sed) FEW Abnormal NONE SEEN /RARE [facility] Comment on above: Performed By: #### L ACT #### [facility] [address] [place] [address] Dr. Tony Cisneros MUCOUS NONE SEEN Normal NONE SEEN [facility] Comment on above: Performed By: #### L ACT #### [facility] [address] [place] [address] Dr. Tony Cisneros RBC NONE SEEN Abnormal 0-[address] [facility] Comment on above: Performed By: #### L ACT #### [facility] [address] [place] [address] Dr. Tony Cisneros WBC 0-2 Abnormal NONE SEEN [facility] Comment on above: Performed By: #### L ACT #### [facility] [address] [place] [address] Dr. Tony Cisneros US PREG BIOPHY W NON STRESSo n 06-14-2021 US PREG BIOPHY W NON STRESS EXAMINATION: US PREG BIOPHY W NON STRESS HISTORY: Disorder of immune function COMPARISON: No relevant comparison available. TECHNIQUE: Ultrasound biophysical profile was performed in the radiology department. non-reactive stress testing was performed by nursing staff in the birthing center. FINDINGS: BREATHING MOVEMENTS: 2.0 GROSS BODY MOVEMENTS: 2.0 TONE: 2.0 QUALITATIVE AMNIOTIC FLUID VOLUME: 2.0 PRESENTATION: CEPHALIC HEART RATE: 137.1 bpm AMNIOTIC FLUID VOLUME: 13.3 cm GESTATIONAL AGE: 34 weeks 4 days IMPRESSION: Total biophysical profile score: 8.0 Electronically authenticated by: JEREMIAS REN Date: 2021-06-14 11:10 Normal [facility] US PREG GROWTHon 06-14-2021 US PREG GROWTH EXAMINATION: US PREG GROWTH HISTORY: Psoriasis COMPARISON: Ultrasound growth 05/10/2021 FINDINGS: Heart Rate: 137.1 bpm Number: 1.0 Position: CEPHALIC Amniotic Fluid Volume: 13.3 cm Maximum Vertical Pocket: 6.3 cm BIOMETRY: BPD: 9.0 cm cm; 36 weeks 3 days HC: 31.6 cmcm; 35 weeks 4 days AC: 31.9 cm cm; 35 weeks 6 days FL: 6.8 cm cm; 35 weeks 0 days EFW: 2725.8 grams; 76th percentile FL/AC: 21.3 FL/BPD: 75.8 HC/AC: 1.0 GESTATIONAL AGE: Age by EDC: 34 weeks 4 days JUAN by EDC: 07/22/2021 Age by US: 35 weeks, 5 days JUAN by US: 07/14/2021 IMPRESSION: 1. Single live intrauterine with growth detailed above. Electronically authenticated by: JEREMIAS REN Date: 2021-06-14 11:30 Normal [facility] BILE ACIDS TOTALon Bile Acids 6.7 umol/L Normal 0.0-10.0 [facility] Comment on above: Performed By: #### B ILEACD #### [facility] [address] [place] [address] Rashmi Rodríguez 06-07-2021 AST [Catalytic activity/Vol] 16 U/L Normal 14-36 [facility] Comment on above: Performed By: #### A LT, AST #### [facility] [address] [place], [place] [id number] Rashmi Lopez [facility] 06-07-2021 ALT [Catalytic activity/Vol] 17 U/L Normal 9-52 [facility] Comment on above: Performed By: #### A LT, AST #### [facility] [address] [place] [address] Rashmi Lopez US PREG BIOPHY W NON STRESSo n 06-07-2021 US PREG BIOPHY W NON STRESS EXAMINATION: US PREG BIOPHY W NON STRESS HISTORY: Disorder of immune function COMPARISON: Ultrasound biophysical 05/31/2021 TECHNIQUE: Ultrasound biophysical profile was performed in the radiology department. non-reactive stress testing was performed by nursing staff in the birthing center. FINDINGS: BREATHING MOVEMENTS: 2.0 GROSS BODY MOVEMENTS: 2.0 TONE: 2.0 QUALITATIVE AMNIOTIC FLUID VOLUME: 2.0 PRESENTATION: CEPHALIC HEART RATE: 134.0 bpm AMNIOTIC FLUID VOLUME: 17.5 cm GESTATIONAL AGE: 33 weeks 4 days IMPRESSION: Total biophysical profile score: 8.0 Electronically authenticated by: JEREMIAS REN Date: 2021-06-07 10:14 Normal [facility] Encounters Encounter Date Encounter Type Care Provider Facility Start: 10-20-2023 End: 10-20-2023 ambulatory Not Available Start: 06-01-2022 End: 06-01-2022 ambulatory VJ SINGLETON Facility:[facility] Start: 07-21-2021 End: 07-21-[address] GONZALEZ LUA Facility:[facility] Start: 07-14-2021 End: 07-19-2021 Evaluation and management of inpatient NIDA CORONADO Facility:[facility] Start: 07-12-2021 End: 07-12-[address] GONZALEZ LUA Facility:[facility] Start: 07-09-2021 End: 07-10-2021 ambulatory NIDA CORONADO Facility:[facility] Start: 07-08-2021 End: 07-08-[address] ABDIRAHMAN SAEZ Facility:[facility] Start: 07-05-2021 End: 07-05-[address] GONZALEZ LUA Facility:[facility] Start: 07-05-2021 Evaluation and manag ement of inpatient DR ABDIRAHMAN SAEZ Facility:[facility] Start: 07-01-2021 End: 07-01-[address] GONZALEZ LUA Facility:[facility] Start: 06-28-2021 End: 06-28-[address] ABDIRAHMAN SAEZ Facility:[facility] Start: 06-28-2021 End: 06-28-[address] ABDIRAHMAN SAEZ Facility:[facility] Start: 06-24-2021 End: 06-24-[address] ABDIRAHMAN SAEZ Facility:[facility] Start: 06-21-2021 End: 06-21-[address] ABDIRAHMAN SAEZ Facility:[facility] Start: 06-19-2021 End: 06-19-[address] ABDIRAHMAN SAEZ Facility:[facility] Start: 06-14-2021 End: 06-14-[address] ABDIRAHMAN SAEZ Facility:[facility] Start: 06-07-2021 End: 06-08-[address] ABDIRAHMAN SAEZ Facility:[facility] Start: 06-07-2021 End: 06-07-[address] ABDIRAHMAN SAEZ Facility:[facility] Procedures Date Procedure Procedure Detail Performing Clinician Start: 07-16-2021 Extraction of Produc ts of Conception, Low Cervical, Open Approach NIDA CORONADO Start: 07-14-2021 Introduction of Horm one into Female Reproductive, Via Natural or Artificial Opening NIDA CORONADO Start: 07-14-2021 Introduction of Othe r Hormone into Peripheral Vein, Percutaneous Approach NIDA CORONADO Payers Date Payer Category Payer Unknown [id number] 1998 Unknown [id number] .16.84 0.1.485328.3.579.2.593 1998 Unknown [id number] 2.16.84 0.1.192645.3.579.2.593 1998 Unknown [id number] 2.16.84 0.1.601624.3.579.2.593 1998 Unknown [id number] 2.16.84 0.1.088527.3.579.2.593 1998 Unknown [id number] 2.16.84 0.1.417894.3.579.2.593 1998 Unknown [id number] .16.84 0.1.177004.3.579.2.593 1998 Unknown [id number] 2.16.84 0.1.307300.3.579.2.593 1998 Unknown [id number] 2.16.84 0.1.274665.3.579.2.593 1998 Unknown [id number] 2.16.84 0.1.659525.3.579.2.593 1998 Unknown [id number] 2.16.84 0.1.938526.3.579.2.593 1998 Unknown [id number] 2.16.84 0.1.140684.3.579.2.593 1998 Unknown [id number] 2.16.84 0.1.715865.3.579.2.593 1998 Unknown [id number] 2.16.84 0.1.861828.3.579.2.593 1998 Unknown [id number] 2.16.84 0.1.192090.3.579.2.593 1998 Unknown [id number] 2.16.84 0.1.893588.3.579.2.593 1998 Unknown [id number] 2.16.84 0.1.126802.3.579.2.593 1998 Unknown [id number] 2.16.84 0.1.399874.3.579.2.593 1998 Unknown [id number] 2.16.840 .1.007608.3.579.2.1259 1961 Private Health Insurance [id number] Self-pay [id number] Discharge summary note 07-14-2021 Note Date & Type Note Facility 07-14-2021 Note DISCHARGE SUMMARY Discharge Date: 07-19-21 PRIMARY DIAGNOSIS: 1. Intrauterine at 39 weeks. 2. History of autonomic dystonia. 3. History of autoimmune disorder psoriasis. PROCEDURE: Primary low transverse Caesarean section. CONSULTATION: Anesthesia. HOSPITAL COURSE: Was as expected, please see chart for full details. LABS: Please see chart. DISCHARGE CONDITION: Stable. DISCHARGE PLAN: ACTIVITY: Pelvic rest for 6 weeks. No heavy lifting for 6 weeks greater than [address] when pain free and no longer on narcotics. DIET: Regular. MEDICATIONS: Motrin, 800, 1 p.o. q8h p.r.n. pain. FOLLOW-UP: In 1 week. The patient was instructed to return to the hospital with any vaginal bleeding greater than a period. Any fever unrelieved by Tylenol, any abdominal pain unrelieved with narcotics. [facility] Signed and Approved by: DR GONZALEZ LUA . 07/30/2021 09:40:00 [facility] Signed and Approved by: DR GONZALEZ LUA . 07/30/2021 09:40:00 [facility] Clinical Note 07-14-2021 Note Date & Type Note Facility 07-14-2021 Note OPERATIVE NOTE OPERATION DATE: 07-16-21 ANESTHETIC:Epidural. DIRECTOR EXECUTIVE COMMUNICATIONS:KALLIE Aguayo PREOPERATIVE DIAGNOSIS: 1. Intrauterine uterine at 39 weeks. 2. History of Ominous order psoriasis. 3. Maternal intolerance to labor, requesting Caesarean section. 4. Failure to induce. POSTOPERATIVE DIAGNOSIS:Same as above. PROCEDURE NAME:Primary low transverse Caesarean section. URINE OUTPUT:Yellow and clear. FINDINGS: Viable infant, weight and Apgars unknown at this time. SPECIMEN:Placenta. PROCEDURE: Patient was taken back to the Operating Room where she was given an epidural without difficulty. She was prepped and draped in the normal sterile fashion. A Pfannenstiel skin incision was then made 2 cm above the symphysis pubis and carried down to underlying rectus fascia using a Bovie. The fascia was incised in the midline and extended laterally using Tang scissors. Two Wu clamps were placed on the superior aspect of the fascia and dissected off the underlying rectus muscles. The same was performed on the inferior aspect as well. The muscles were then in the midline. Peritoneum was identified and entered bluntly. The peritoneum was then extended superiorly and inferiorly with good visualization of the bladder. The bladder blade was inserted. Vesicouterine peritoneum was identified, tented up, and entered with Metzenbaum scissors. A bladder flap was then created digitally. The bladder blade was reinserted. A low transverse incision was made on the patient's uterus and extended laterally digitally. The was then delivered atraumatically after the bladder blade was removed in the cephalic position. The cord was clamped and cut. Cord blood was obtained. The was handed off to awaiting team. The patient's placenta was spontaneously delivered. The uterus was then exteriorized. The uterus was cleared of all clots and debris. The bladder blade was reinserted. The patient's uterine incision was closed using #0 Vicryl in a running lock fashion. Excellent hemostasis was assured. The uterus was then returned to the patient's abdomen. The patient's abdomen was copiously irrigated using warm saline. Peritoneal gutters were cleared of all clots and debris. Again excellent hemostasis was assured. The patient's peritoneum was closed using 3-0 Vicryl in a running fashion. The patient's fascia was closed using #0 Vicryl in a running fashion. The patient's skin was closed using 4-0 Vicryl subcuticularly. The patient tolerated the procedure well. Sponge, lap, and needle counts were correct x2. The patient was taken to the Recovery Room in stable condition. [facility] Signed and Approved by: DR GONZALEZ LUA . 08/03/2021 19:36:[address] [facility] Summary Purpose Family History No Family History Records FoundNo Family History Records FoundNo Family History Records Found Advance Directives No Advanced Directives Records FoundNo Advanced Directives Records FoundNo Advanced Directives Records Found Additional Source Comments INFORMATION SOURCE (unrecogn ized section and content) DATE CREATED AUTHOR 06/03/2022 [facility] DATE CREATED AUTHOR AUTHOR'S ORGANIZ ATION 06/04/2022 [facility] DATE CREATED AUTHOR AUTHOR'S ORGANIZ ATION 10/22/2023 [facility] FOR RECORDS PERTAINING TO PATIENTS WHO ARE OR HAVE BEEN ENROLLED IN A CHEMICAL DEPENDENCY/SUBSTANCEABUSE PROGRAM, SOME INFORMATION MAY BE OMITTED. This clinical summary was aggregated from multiple sources. Caution should be exercised in using it in the provision of clinical care. This summary normalizes information from multiple sources, and as a consequence, information in this document may materially change the coding, format and clinical context of patient data. In addition, data may be omitted in some cases. CLINICAL DECISIONS SHOULD BE BASED ON THE PRIMARY CLINICAL RECORDS. [facility]. provides no warranty or guarantee of the accuracy or completeness of information in this document.
[2023-11-20 10:25] LABS: Basophils Percent Auto 0.3 % (0.2-2.0); Eosinophils Absolute Auto 0.1 10^3/uL (0.0-0.7); Eosinophils Percent Auto 1.1 % (0.9-7.0); Hematocrit 37.8 % (36.0-48.0); Hemoglobin 12.7 g/dL (12.0-16.0); Immature Granulocytes Abs Auto 0.04 10^3/uL (0.00-0.03); Immature Granulocytes Pct Auto 0.3 % (0.0-0.5); Lymphocytes Absolute Auto 1.3 10^3/uL (1.2-3.8); Lymphocytes Percent Auto 11.2 % (20.5-60.0); Mean Corpuscular HGB Conc 33.6 g/dL (29.9-35.2); Mean Corpuscular Hemoglobin 29.3 pg (26.7-34.0); Mean Corpuscular Volume 87.1 fL (81.0-99.0); Mean Platelet Volume 9.8 fL (9.5-13.5); Monocytes Absolute Auto 0.9 10^3/uL (0.3-0.8); Monocytes Percent Auto 7.4 % (1.7-12.0); Neutrophils Absolute Auto 9.3 10^3/uL (1.4-6.5); Neutrophils Percent Auto 79.7 % (43.0-75.0); Platelet Count 348 10^3/uL (150-450); Red Blood Count 4.34 10^6/uL (4.20-5.40); Red Cell Distribution Width 13.1 % (11.0-15.0); White Blood Count 11.7 10^3/uL (4.0-11.0)
[2023-11-20 11:19] LABS: Estimated Average Glucose 97 mg/dL
[2023-11-20 13:31] LABS: Thyroid Stimulating Hormone 1.065 uIU/mL (0.358-3.740)
[2023-11-21 06:08] LABS: HBsAg Screen Negative (Negative); HCV Ab Non Reactive (Non Reactive); HIV Ab/p24 Ag Screen Non Reactive (Non Reactive)
[2023-11-21 08:11] LABS: Rubella Antibodies, IgG 5.86 index (Immune >0.99)
[2023-11-21 12:10] LABS: Rapid Plasma Reagin, Quant Non Reactive titer (NonRea<1:1)
== END 2023-11-20 09:45 | disposition home or self-care (01) ==
LOC: LAB 09:46
PROVIDERS: PCP Family Medicine; Visit Provider Obstetrics & Gynecology
DX: N92.6 Irregular menstruation, unspecified (principal)
CPT/HCPCS: 36415; 83036; 84443; 85025; 86592; 86762; 86803; 86850; 86900; 86901; 87086; 87150; 87186; 87340; 87389

== ENCOUNTER 2023-12-23 12:19 | Emergency (ER) | payer MEDICAID, SELFPAY ==
--- NOTE | 2023-12-23 | US_ITS ---
The [address] [address] Patient Name: BARON MORA MRN: [id number] date: 2000 Sex: F Assigned Patient Location: ER Current Patient Location: ER Accession/Order Number: [id number] Exam Date: 12/23/2023 13:50 Report Date: 12/23/2023 15:15 At the request of: DESTINEY STEIN Procedure: US OB transvaginal EXAM: Ultrasound OB pelvis INDICATION: Intermittent Cramping and spotting times one day. COMPARISON: Obstetrical ultrasound 10/20/2023 TECHNIQUE: Transabdominal obstetrical ultrasound with grayscale, color and M-mode Doppler imaging FINDINGS: EGA: 19 weeks 1 day JUAN: 05/17/2024 Single intrauterine gestation with breech presentation and longitudinal lie. Placenta:Anterior with 2.9 x 2.3 x 1.4 cm placental white. The inferior placental edge appears to completely cover the internal cervical os. 5.2 x 5.7 x 3.1 cm Retroplacental mass isoechoic to the uterus that is not visualized at the end of the exam is likely secondary to uterine contraction. FHR:138 bpm [place]:Subjectively normal Closed Cervix: 5.2 cm in length with trace simple cervical fluid. US/US OB transvaginal IMPRESSION: 1. Single viable intrauterine gestation with estimated gestational age of 19 weeks 1 day and estimated date of delivery 05/17/2024 2. Anterior placenta with complete placenta previa. 3. Closed cervix 5.2 cm in length. Electronically authenticated by: DIANNE PINEDO Date: 12/23/2023 15:15
[2023-12-23 12:26] VITALS: PULSE 98; RESP 20; TEMP 37.2; O2SAT 100; BMI 28.7
--- NOTE | 2023-12-23 12:47 | US_ITS ---
The [address] [address] Patient Name: BARON MORA MRN: [id number] date: 2000 Sex: F Assigned Patient Location: ER Current Patient Location: ER Accession/Order Number: [id number] Exam Date: 12/23/2023 13:50 Report Date: 12/23/2023 15:15 At the request of: DESTINEY STEIN Procedure: US OB placenta EXAM: Ultrasound OB pelvis INDICATION: Intermittent Cramping and spotting times one day. COMPARISON: Obstetrical ultrasound 10/20/2023 TECHNIQUE: Transabdominal obstetrical ultrasound with grayscale, color and M-mode Doppler imaging FINDINGS: EGA: 19 weeks 1 day JUAN: 05/17/2024 Single intrauterine gestation with breech presentation and longitudinal lie. Placenta:Anterior with 2.9 x 2.3 x 1.4 cm placental white. The inferior placental edge appears to completely cover the internal cervical os. 5.2 x 5.7 x 3.1 cm Retroplacental mass isoechoic to the uterus that is not visualized at the end of the exam is likely secondary to uterine contraction. FHR:138 bpm [place]:Subjectively normal Closed Cervix: 5.2 cm in length with trace simple cervical fluid. US/US OB placenta IMPRESSION: 1. Single viable intrauterine gestation with estimated gestational age of 19 weeks 1 day and estimated date of delivery 05/17/2024 2. Anterior placenta with complete placenta previa. 3. Closed cervix 5.2 cm in length. Electronically authenticated by: DIANNE PINEDO Date: 12/23/2023 15:15
--- OUTSIDE RECORDS SUMMARY | 2023-12-23 12:48 | XMS_ITS | CCD ---
Author Name Unknown Address [email or web address] [facility] [address] [place] [address] Organization [facility] Care Team Providers Care Resident Program Specialist Name Role Phone NIDA CORONADO Consulting Unavailable [...] Care Unavailable CHANELL, DR ROTH Consulting Unavailable ZIEBER, DR JEREMIAS Phan Consulting Unavailable NADJA, DR ABDIRAHMAN Ibarra Primary Care Unavailable KARASIK, DR LOPEZ Admitting Unavailable KARASIK, DR LOPEZ Attending Unavailable KARASIK, DR LOPEZ Consulting Unavailable NADJA, DR ABDIRAHMAN Ibarra Primary Care Unavailable CHANELL, DR ROTH Attending Unavailable CHANELL, DR ROTH Admrah Unavailable NADJA, DR ABDIRAHMAN Ibarra Primary Care Unavailable CHANELL, DR ROTH Attending Unavailable CHANELL, DR ROTH Admitting Unavailable CHANELL, DR ROTH Consulting Unavailable CHANELL, DR ROTH Attending Unavailable CHANELL, DR ROTH Admitting Unavailable NADJA, DR ABDIRAHMAN Ibarra Primary Care Unavailable KARASIK, DR LOPEZ Consulting Unavailable CHANELL, DR ROTH Consulting Unavailable ZIEBER, [...] Attending Unavailable CHANELL, DR ROTH Consulting Unavailable TITUSEBMELE, DR JEREMIAS Phan Consulting Unavailable NADJA, DR ABDIRAHMAN Ibarra Primary Care Unavailable NIDA CORONADO Attending Unavailable IVONNE, NIDA Admitting Unavailable IVONNE, NIDA Consulting Unavailable NADJA, DR ABDIRAHMAN Ibarra Primary Care Unavailable CHANELL, DR ROTH Attending Unavailable CHANELL, DR ROTH Admitting Unavailable CHANELL, DR ROTH Consulting Unavailable TITUSEBMELE, DR JEREMIAS Phan Consulting Unavailable NADJA, DR [...] Attending Unavailable CHANELL, DR ROTH Consulting Unavailable TITUSEBMELE, DR JEREMIAS Phan Consulting Unavailable NIDA CORONADO Attending Unavailable NADJA, DR ABDIRAHMAN Ibarra Primary Care Unavailable CHANELL, DR ROTH Consulting Unavailable NIDA CORONADO Admitting Unavailable NIDA CORONADO Consulting Unavailable ANTHONY PENNY Consulting Unavailable CHANELL, DR ROTH Procedure Practitioner Unavailab le GONZALEZ LUA Attending Unavailable Allergies Allergy Classification Reported Allergen(s) Allergy Type Date of Onset Reaction(s) Facility (1 source) Desonide Drug Allergy [facility] (1 source) Erythromycin Drug Allergy 12-04-2020 [facility] (1 source) Latex Drug allergy (disorder) [facility] (1 source) Shellfish Drug allergy (disorder) 05-31-2022 [facility] Problems Active Problems Problem Classification Problem [...] # 0.1 103/ul Normal 0.0-0.1 [facility] Comment on above: Performed By: #### C BC #### [facility] [address] [id number] Rashmi Jessica Basophils/100 WBC (Bld) 0.5 % Normal 0.2-2.0 [facility] Comment on above: Performed By: #### C BC #### [facility] [address] [id number] Rashmi Jessica EO # 0.3 103/ul Normal 0.0-0.7 [facility] Comment on above: Performed By: #### C BC #### [facility] [address] [place], [place] [id number] Rashmi Jessica Eosinophils/100 WBC (Bld) 3.3 % Normal 0.9-7.0 [facility] Comment on above: Performed By: #### C BC #### [facility] [address] [place], [place] [id number] Rashmi Jessica Erythrocyte distribution width (RBC) [Ratio] 13.5 % Normal 11.0-15.0 [facility] Comment on above: Performed By: #### C BC #### [facility] [address] [place], [place] [id number] Rashmi Jessica Hematocrit (Bld) [Volume fraction] 41.8 % Normal 36.0-48.0 [facility] Comment on above: Performed By: #### C BC #### [facility] [address] [phone] Rashmi Jessica Hemoglobin (Bld) [Mass/Vol] 13.9 g/dL Normal 12.0-16.0 [facility] Comment on above: Performed By: #### C BC #### [facility] [address] [address] Rashmi Jessica IG # 0.02 10e3/ul Normal 0.00-0.03 [facility] Comment on above: Performed By: #### C BC #### [facility] [address] [id number] Rashmiadele Lopez IG % 0.2 % Normal 0.0-0.5 [facility] Comment on above: Performed By: #### C BC #### [facility] [address] [place], [place] [id number] Rashmi Jessica LYMPH # 2.6 103/ul Normal 1.2-3.8 [facility] Comment on above: Performed By: #### C BC #### [facility] [address] [place], [place] [id number] Rashmi Lopez Lymphocytes/100 WBC (Bld) 27.8 % Normal 20.5-60.0 [facility] Comment on above: Performed By: #### C BC #### [facility] [address] [place] [address] Rashmi Lopez MANUAL DIFF REQ NO Normal [facility] Comment on above: Performed By: #### C BC #### [facility] [address] [place] [address] Rashmiadele Lopez MCH (RBC) [Entitic mass] 27.5 pg Normal 26.7-34.0 [facility] Comment on above: Performed By: #### C BC #### [facility] [address] [place] [address] Rashmi Lopez MCHC (RBC) [Mass/Vol] 33.3 g/dL Normal 29.9-35.2 [facility] Comment on above: Performed By: #### C BC #### [facility] [address] [place] [address] Rashmiadele Lopez MCV (RBC) [Entitic vol] 82.8 fL Normal 81.0-99.0 [facility] Comment on above: Performed By: #### C BC #### [facility] [address] [place], [place] [id number] Rashmi Jessica MONO # 1.2 103/ul Critically high 0.3-0.8 [facility] Comment on above: Performed By: #### C BC #### [facility] [address] [place], [place] [id number] Rashmi Casillasen Monocytes/100 WBC (Bld) 12.6 % Critically high 1.7-12.0 [facility] Comment on above: Performed By: #### C BC #### [facility] [address] [place], [place] [id number] Rashmi Lopez NEUT # 5.2 103/ul Normal 1.4-6.5 [facility] Comment on above: Performed By: #### C BC #### [facility] [address] [place], [place] [id number] Rashmi Casillasen Neutrophils/100 WBC (Bld) 55.6 % Normal 43.0-75.0 [facility] Comment on above: Performed By: #### C BC #### [facility] [address] [place], [place] [phone] Rashmi Lopez Platelet mean volume (Bld) [Entitic vol] 9.4 fL Critically low 9.5-13.5 [facility] Comment on above: Performed By: #### C BC #### [facility] [address] [place], [place] [id number] Rashmiadele Casillasen PLT 459 103/ul Critically high 150-450 [facility] Comment on above: Performed By: #### C BC #### [facility] [address] [place], [place] [phone] Rashmi Jessica RBC 5.05 106/ul Normal 4.20-5.40 [facility] Comment on above: Performed By: #### C BC #### [facility] [address] [place], [place] [id number] Rashmiadele Casillasen WBC 9.4 103/ul Normal 4.0-11.0 [facility] Comment on above: Performed By: #### C BC #### [facility] [address] [place], [place] [id number] Rashmi Jessica CT ABD/PELVIS WO CONon 06-01 CT ABD/PELVIS [...] Pito DELGADO Date: 2022-06-01 01:26 Normal [facility] URINE PROFILEon 2 Bilirubin Ql (U) Negative Normal NEGATIVE [facility] Comment on above: Performed By: #### C BC #### [facility] [address] [place] [address] Rashmi Jessica Clarity (U) CLEAR Normal CLEAR [facility] Comment on above: Performed By: #### C BC #### [facility] [address] [place] [address] Rashmi Jessica Color (U) LT. YELLOW Normal YELLOW [facility] Comment on above: Performed By: #### C BC #### [facility] [address] [place] [address] Rashmi Jessica ERUAHD A micrscopic examination will be performed if indicated. Normal [facility] Comment on above: Performed By: #### C BC #### [facility] [address] [place], [place] [phone] Rashmi Jessica Glucose Ql (U) Negative Normal NEGATIVE [facility] Comment on above: Performed By: #### C BC #### [facility] [address] [place] [address] Rashmi Jessica Hemoglobin Ql (U) LARGE Abnormal NEGATIVE [facility] Comment on above: Performed By: #### C BC #### [facility] [address] [place], [place] [id number] Rashmi Jessica Ketones Ql (U) Negative Normal NEGATIVE [facility] Comment on above: Performed By: #### C BC #### [facility] [address] [place] [address] Rashmi Jessica LEUKOCYTES Negative Normal NEGATIVE [facility] Comment on above: Performed By: #### C BC #### [facility] [address] [place] [address] Rashmi Jessica Nitrite Ql (U) Negative Normal NEGATIVE [facility] Comment on above: Performed By: #### C BC #### [facility] [address] [place] [address] Rashmi Jessica pH (U) 6.0 [pH] Normal 5-9 [facility] Comment on above: Performed By: #### C BC #### [facility] [address] [place] [address] Rashmi Jessica SPEC GRAVITY 1.010 Normal 1.005-<=1.025 [facility] Comment on above: Performed By: #### C BC #### [facility] [address] [place] [address] Rashmi Jessica UA PROTEIN Negative Normal NEGATIVE/ TRACE [facility] Comment on above: Performed By: #### C BC #### [facility] [address] [place] [address] Rashmi Jessica UR MICRO IND INDICATED Normal [facility] Comment on above: Performed By: #### C BC #### [facility] [address] [place] [address] Rashmi Jessica Urobilinogen Qn (U) 0.2 {Saw'U}/dL Normal 0.2 - 1. 0 [facility] Comment on above: Performed By: #### C BC #### [facility] [address] [place], [place] [address] Rashmi Jessica LACTATE/LACTIC ACIDon 2021 Lactate [Moles/Vol] 0.8 mmol/L Normal 0.4-1.9 [facility] Comment on above: Performed By: #### L ACT #### [facility] [address] [place], [place] [id number] Dr. Tony Cisneros URon 06-01-2022 , QUAL Negative Normal NEGATIVE [facility] Comment on above: Performed By: #### C BC #### [facility] [address] [place], [place] [phone] Rashmi Jessica PROF CHEM 8 (BAS METB)on Anion gap [Moles/Vol] 11.6 mmol/L Normal [facility] Comment on above: Performed By: #### C BC #### [facility] [address] [place], [place] [phone] Rashmi Jessica Calcium [Mass/Vol] 9.2 mg/dL Normal 8.5-10.1 [facility] Comment on above: Performed By: #### C BC #### [facility] [address] [place], [place] [id number] Rashmi Jessica Chloride [Moles/Vol] 104 mmol/L Normal 98-107 [facility] Comment on above: Performed By: #### C BC #### [facility] [address] [place], [place] [address] Rashmi Jessica CO2 [Moles/Vol] 28.0 mmol/L Normal 21.0-32.0 [facility] Comment on above: Performed By: #### C BC #### [facility] [address] [place], [place] [id number] Rashmi Jessica Creatinine [Mass/Vol] 0.90 mg/dL Normal 0.55-1.02 [facility] Comment on above: Performed By: #### C BC #### [facility] [address] [place], [place] [address] Rashmi Jessica EGFR-AF CITIZEN [place] >60 Normal >=60 [facility] Comment on above: Performed By: #### C BC #### [facility] [address] [place], [place] [address] Rashmi Jessica EGFR-NON AF CITIZEN OF [place] >60 Normal >=60 [facility] Comment on above: Performed By: #### C BC #### [facility] [address] [place], [place] [address] Rashmi Jessica Glucose [Mass/Vol] 101 mg/dL Normal 74-106 [facility] Comment on above: Performed By: #### C BC #### [facility] [address] [place], [place] [address] Rashmi Jessica Potassium [Moles/Vol] 3.6 mmol/L Normal 3.5-5.1 [facility] Comment on above: Performed By: #### C BC #### [facility] [address] [place], [place] [id number] Rashmi Jessica Sodium [Moles/Vol] 140 mmol/L Normal 136-145 [facility] Comment on above: Performed By: #### C BC #### [facility] [address] [place], [place] [phone] Rashmi Jessica Urea nitrogen [Mass/Vol] 17.0 mg/dL Normal 7.0-18.0 [facility] Comment on above: Performed By: #### C BC #### [facility] [address] [place], [place] [id number] Rashmi Jessica Urea nitrogen/Creatinine [Mass ratio] 18.9 mg/mg Normal [facility] Comment on above: Performed By: #### C BC #### [facility] [address] [place] [address] Rashmi Jessica RAD - CT Reporton 06-01-2022 RAD - CT Report [id number] Normal [facility] URINE MICROSCOPIC ONLYon BACTERIA TRACE Abnormal NONE SEEN [facility] Comment on above: Performed By: #### C BC #### [facility] [address] [place], [place] [id number] Rashmi Jessica Bacteria identified Cx Nom (U) NOT INDICATED Normal [facility] Comment on above: Performed By: #### C BC #### [facility] [address] [place] [address] Rashmiadele Lopez CAST NONE SEEN Normal NONE SEEN [facility] Comment on above: Performed By: #### C BC #### [facility] [address] [place] [address] Rashmi Jessica Crystals LM Nom (Urine sed) NONE SEEN Normal NONE SEEN [facility] Comment on above: Performed By: #### C BC #### [facility] [address] [place] [address] Rashmiadele Lopez Epithelial cells LM Ql (Urine sed) RARE Normal NONE SEEN /RARE [facility] Comment on above: Performed By: #### C BC #### [facility] [address] [place] [address] Rashmi Jessica MUCOUS NONE SEEN Normal NONE SEEN [facility] Comment on above: Performed By: #### C BC #### [facility] [address] [place] [address] Rashmi Jessica RBC 2-5 Abnormal 0-2 [facility] Comment on above: Performed By: #### C BC #### [facility] [address] [place] [address] Rashmi Jessica WBC NONE SEEN Normal NONE SEEN [facility] Comment on above: Performed By: #### C BC #### [facility] [address] [place] [address] Rashmi Lopez Family Medicine Office/Clini c Noteon 11-23-2021 [...] Family History Family history is negative Normal [facility] Comment on above: Result Comment: Elec tronically [...] With When Contact Information Abdirahman SAEZ DO, [facility] Only if needed [address] [place] [phone]- Additional Instructions: Problem List/Past Medical History Ongoing [...] Family History Family history is negative Normal [facility] Comment on above: Result Comment: Elec tronically Signed By: Abdirahman SAEZ DO\.br\Date and Time Signed: 11/15/21 15:26 EST AMYLASEon 07-18-2021 Amylase [Catalytic activity/Vol] 38 U/L Normal 31-110 [facility] Comment on above: Performed By: #### C MP, JONATHAN, LDH, ALT, AST, URIC, LIPA #### [facility] [address] [phone] Rashmi Lopez CBC AUTO DIFFon 07-18-2021 BASO # 0.0 103/ul Normal 0.0-0.1 [facility] Comment on above: Performed By: #### C BC #### [facility] [address] [phone] Rashmi Jessica Basophils/100 WBC (Bld) 0.3 % Normal 0.2-2.0 [facility] Comment on above: Performed By: #### C BC #### [facility] [address] [phone] Rashmi Jessica EO # 0.1 103/ul Normal 0.0-0.7 [facility] Comment on above: Performed By: #### C BC #### [facility] [address] [phone] Rashmi Jessica Eosinophils/100 WBC (Bld) 0.8 % Critically low 0.9-7.0 [facility] Comment on above: Performed By: #### C BC #### [facility] [address] [place], [place] [phone] Rashmi Jessica Erythrocyte distribution width (RBC) [Ratio] 13.4 % Normal 11.0-15.0 [facility] Comment on above: Performed By: #### C BC #### [facility] [address] [place], [place] [phone] Rashmi Jessica Hematocrit (Bld) [Volume fraction] 27.0 % Critically low 36.0-48.0 [facility] Comment on above: Performed By: #### C BC #### [facility] [address] [place], [place] [phone] Rashmi Jessica Hemoglobin (Bld) [Mass/Vol] 9.1 g/dL Critically low 12.0-16.0 [facility] Comment on above: Performed By: #### C BC #### [facility] [address] [place], [place] [address] Rashmi Jessica IG # 0.18 10e3/ul Critically high 0.00-0.03 [facility] Comment on above: Performed By: #### C BC #### [facility] [address] [phone] Rashmi Jessica IG % 1.2 % Critically high 0.0-0.5 [facility] Comment on above: Performed By: #### C BC #### [facility] [address] [phone] Rashmi Jessica LYMPH # 1.0 103/ul Critically low 1.2-3.8 [facility] Comment on above: Performed By: #### C BC #### [facility] [address] [phone] Rashmi Jessica Lymphocytes/100 WBC (Bld) 7.0 % Critically low 20.5-60.0 [facility] Comment on above: Performed By: #### C BC #### [facility] [address] [place], [place] [id number] Rashmi Jessica MANUAL DIFF REQ NO Normal [facility] Comment on above: Performed By: #### C BC #### [facility] [address] [place] [address] Rashmiadele Casillasen MCH (RBC) [Entitic mass] 28.1 pg Normal 26.7-34.0 [facility] Comment on above: Performed By: #### C BC #### [facility] [address] [place], [place] [phone] Rashmiadele Lopez MCHC (RBC) [Mass/Vol] 33.7 g/dL Normal 29.9-35.2 [facility] Comment on above: Performed By: #### C BC #### [facility] [address] [place], [place] [address] Rashmiadele Lopez MCV (RBC) [Entitic vol] 83.3 fL Normal 81.0-99.0 [facility] Comment on above: Performed By: #### C BC #### [facility] [address] [place], [place] [id number] Rashmi Jessica MONO # 1.1 103/ul Critically high 0.3-0.8 [facility] Comment on above: Performed By: #### C BC #### [facility] [address] [place], [place] [address] Rashmi Jessica Monocytes/100 WBC (Bld) 7.2 % Normal 1.7-12.0 [facility] Comment on above: Performed By: #### C BC #### [facility] [address] [phone] Rashmi Lopez NEUT # 12.2 103/ul Critically high 1.4-6.5 [facility] Comment on above: Performed By: #### C BC #### [facility] [address] [place], [place] [address] Rashmi Lopez Neutrophils/100 WBC (Bld) 83.5 % Critically high 43.0-75.0 [facility] Comment on above: Performed By: #### C BC #### [facility] [address] [place], [place] [phone] Rashmi Lopez Platelet mean volume (Bld) [Entitic vol] 11.2 fL Normal 9.5-13.5 [facility] Comment on above: Performed By: #### C BC #### [facility] [address] [place] [address] Rashmiadele Casillasen PLT 348 103/ul Normal 150-450 [facility] Comment on above: Performed By: #### C BC #### [facility] [address] [place], [place] [id number] Rashmi Jessica RBC 3.24 106/ul Critically low 4.20-5.40 [facility] Comment on above: Performed By: #### C BC #### [facility] [address] [place], [place] [id number] Rashmiadele Lopez WBC 14.6 103/ul Critically high 4.0-11.0 [facility] Comment on above: Performed By: #### C BC #### [facility] [address] [place] [address] Rashmi Lopez LDHon 07-18-2021 LDH 211 U/L Normal 122-222 [facility] Comment on above: Performed By: #### L ACT #### [facility] [address] [place], [place] [phone] Dr. Tony Cisneros LIPASEon 07-18-2021 Lipase [Catalytic activity/Vol] 68.0 U/L Normal 23.0-300.0 [facility] Comment on above: Performed By: #### C MP, JONATHAN, LDH, ALT, AST, URIC, LIPA #### [facility] [address] [address] Rashmi Lopez PROF 14(COMP METB)on 021 Albumin [Mass/Vol] 2.4 g/dL Critically low 3.5-5.0 [facility] Comment on above: Performed By: #### L ACT #### [facility] [address] [address] [address] Tony Cisneros Albumin/Globulin [Mass ratio] 0.7 {ratio} Normal [facility] Comment on above: Performed By: #### L ACT #### [facility] [address] [address] [address] Tony Cisneros ALP [Catalytic activity/Vol] 116 U/L Normal 38-126 [facility] Comment on above: Performed By: #### L ACT #### [facility] [address] [place] [address] Dr. Tony Cisneros Anion gap [Moles/Vol] 13.7 mmol/L Normal [facility] Comment on above: Performed By: #### L ACT #### [facility] [address] [place] [address] Dr. Tony Cisneros Bilirubin [Mass/Vol] 0.2 mg/dL Normal 0.2-1.3 [facility] Comment on above: Performed By: #### L ACT #### [facility] [address] [place] [address] Dr. Tony Cisneros Calcium [Mass/Vol] 7.8 mg/dL Critically low 8.4-10.2 [facility] Comment on above: Performed By: #### L ACT #### [facility] [address] [address] [address] Tony Cisneros Chloride [Moles/Vol] 105 mmol/L Normal 98-107 [facility] Comment on above: Performed By: #### L ACT #### [facility] [address] [address] [address] Tony Cisneros CO2 [Moles/Vol] 26.9 mmol/L Normal 22.0-30.0 [facility] Comment on above: Performed By: #### L ACT #### [facility] [address] [address] [address] Tony Cisneros Creatinine [Mass/Vol] 0.58 mg/dL Normal 0.52-1.04 [facility] Comment on above: Performed By: #### L ACT #### [facility] [address] [address] [address] Tony Cisneros EGFR-AF CITIZEN [place] >60 Normal >=60 [facility] Comment on above: Performed By: #### L ACT #### [facility] [address] [address] [address] Tony Cisneros EGFR-NON AF CITIZEN OF [place] >60 Normal >=60 [facility] Comment on above: Performed By: #### L ACT #### [facility] [address] [place] [address] Dr. Tony Cisneros Globulin (S) [Mass/Vol] 3.5 g/dL Normal [facility] Comment on above: Performed By: #### L ACT #### [facility] [address] [place] [address] Dr. Tony Cisneros Glucose [Mass/Vol] 95 mg/dL Normal 74-106 [facility] Comment on above: Performed By: #### L ACT #### [facility] [address] [place] [address] Dr. Tony Cisneros Potassium [Moles/Vol] 3.6 mmol/L Normal 3.4-5.0 [facility] Comment on above: Performed By: #### L ACT #### [facility] [address] [place] [address] Dr. Tony Cisneros Protein [Mass/Vol] 5.9 g/dL Critically low 6.1-8.2 [facility] Comment on above: Performed By: #### L ACT #### [facility] [address] [place] [address] Dr. Tony Cisneros Sodium [Moles/Vol] 142 mmol/L Normal 137-145 [facility] Comment on above: Performed By: #### L ACT #### [facility] [address] [place] [address] Dr. Tony Cisneros Urea nitrogen [Mass/Vol] 5.0 mg/dL Critically low 7.0-17.0 [facility] Comment on above: Performed By: #### L ACT #### [facility] [address] [place] [address] Dr. Tony Cisneros Urea nitrogen/Creatinine [Mass ratio] 8.6 mg/mg Normal [facility] Comment on above: Performed By: #### L ACT #### [facility] [address] [place] [address] Dr. Tony Cisnreos SGOTon 07-18-2021 AST [Catalytic activity/Vol] 21 U/L Normal 14-36 [facility] Comment on above: Performed By: #### L ACT #### [facility] [address] [place] [address] Dr. Tony Cisneros SGPTon 07-18-2021 ALT [Catalytic activity/Vol] 14 U/L Normal 9-52 [facility] Comment on above: Performed By: #### L ACT #### [facility] [address] [place] [address] Dr. Tony Cisneros URIC ACID SERUMon 07-18-2021 Urate [Mass/Vol] 3.4 mg/dL Normal 2.5-6.2 [facility] Comment on above: Performed By: #### L ACT #### [facility] [address] [place] [address] Dr. Tony Cisneros CBC AUTO DIFFon 07-17-2021 BASO # 0.0 103/ul Normal 0.0-0.1 [facility] Comment on above: Performed By: #### C BC #### [facility] [address] [place] [address] Rashmi Jessica Basophils/100 WBC (Bld) 0.1 % Critically low 0.2-2.0 [facility] Comment on above: Performed By: #### C BC #### [facility] [address] [place] [address] Rashmi Jessica EO # 0.0 103/ul Normal 0.0-0.7 [facility] Comment on above: Performed By: #### C BC #### [facility] [address] [id number] Rashmi Jessica Eosinophils/100 WBC (Bld) 0.1 % Critically low 0.9-7.0 [facility] Comment on above: Performed By: #### C BC #### [facility] [address] [id number] Rashmi Jessica Erythrocyte distribution width (RBC) [Ratio] 13.3 % Normal 11.0-15.0 [facility] Comment on above: Performed By: #### C BC #### [facility] [address] [place], [place] [id number] Rashmi Jessica Hematocrit (Bld) [Volume fraction] 28.5 % Critically low 36.0-48.0 [facility] Comment on above: Performed By: #### C BC #### [facility] [address] [place] [address] Rashmi Jessica Hemoglobin (Bld) [Mass/Vol] 9.3 g/dL Critically low 12.0-16.0 [facility] Comment on above: Performed By: #### C BC #### [facility] [address] [place], [place] [id number] Rashmi Jessica IG # 0.18 10e3/ul Critically high 0.00-0.03 [facility] Comment on above: Performed By: #### C BC #### [facility] [address] [place], [place] [id number] Rashmi Jessica IG % 0.8 % Critically high 0.0-0.5 [facility] Comment on above: Performed By: #### C BC #### [facility] [address] [place] [address] Rashmi Jessica LYMPH # 1.1 103/ul Critically low 1.2-3.8 [facility] Comment on above: Performed By: #### C BC #### [facility] [address] [place], [place] [id number] Rashmi Jessica Lymphocytes/100 WBC (Bld) 4.9 % Critically low 20.5-60.0 [facility] Comment on above: Performed By: #### C BC #### [facility] [address] [place], [place] [id number] Rashmi Jessica MANUAL DIFF REQ NO Normal [facility] Comment on above: Performed By: #### C BC #### [facility] [address] [place], [place] [id number] Rashmidaele Lopez MCH (RBC) [Entitic mass] 27.7 pg Normal 26.7-34.0 [facility] Comment on above: Performed By: #### C BC #### [facility] [address] [place], [place] [id number] Rashmi Lopez MCHC (RBC) [Mass/Vol] 32.6 g/dL Normal 29.9-35.2 [facility] Comment on above: Performed By: #### C BC #### [facility] [address] [place] [address] Rashmiadele Lopez MCV (RBC) [Entitic vol] 84.8 fL Normal 81.0-99.0 [facility] Comment on above: Performed By: #### C BC #### [facility] [address] [place] [address] Rashmi Jessica MONO # 1.8 103/ul Critically high 0.3-0.8 [facility] Comment on above: Performed By: #### C BC #### [facility] [address] [place], [place] [id number] Rashmi Jessica Monocytes/100 WBC (Bld) 8.1 % Normal 1.7-12.0 [facility] Comment on above: Performed By: #### C BC #### [facility] [address] [place] [address] Rashmi Jessica NEUT # 18.9 103/ul Critically high 1.4-6.5 [facility] Comment on above: Performed By: #### C BC #### [facility] [address] [place], [place] [id number] Rashmi Jessica Neutrophils/100 WBC (Bld) 86.0 % Critically high 43.0-75.0 [facility] Comment on above: Performed By: #### C BC #### [facility] [address] [place] [address] Rashmi Lopez Platelet mean volume (Bld) [Entitic vol] 9.9 fL Normal 9.5-13.5 [facility] Comment on above: Performed By: #### C BC #### [facility] [address] [place] [address] Rashmi Lopez PLT 409 103/ul Normal 150-450 [facility] Comment on above: Performed By: #### C BC #### [facility] [address] [place], [place] [id number] Rashmi Lopez RBC 3.36 106/ul Critically low 4.20-5.40 [facility] Comment on above: Performed By: #### C BC #### [facility] [address] [place], [place] [id number] Rashmi Lopez WBC 22.0 103/ul Critically high 4.0-11.0 [facility] Comment on above: Performed By: #### C BC #### [facility] [address] [place], [place] [id number] Rashmi Lopez ASYMPTOMATIC COVID-19 ANTIGE Non 07-14-2021 EUA Statement SEE BELOW Normal [facility] Comment on above: Result Comment: This test [...] sooner. Performed By: #### C VDAGA #### [facility] [address] [place] [address] Rashmi Lopez SARS-CoV-2 (COVID-19) RNA CHRISTOPHER+probe Ql (Unsp spec) Negative Normal NEGATIVE [facility] Comment on above: Result Comment: Nega tive results are presumptive. They do not preclude infection and should not be used as the sole basis for treatment decisions. Additional confirmatory testing by a molecular method should be considered. Performed By: #### C VDAGA #### [facility] [address] [place], [place] [id number] Rashmi Jessica CBC AUTO DIFFon 07-14-2021 BASO # 0.1 103/ul Normal 0.0-0.1 [facility] Comment on above: Performed By: #### C BC #### [facility] [address] [place], [place] [id number] Rashmi Jessica Basophils/100 WBC (Bld) 0.3 % Normal 0.2-2.0 [facility] Comment on above: Performed By: #### C BC #### [facility] [address] [place], [place] [id number] Rashmi Jessica EO # 0.1 103/ul Normal 0.0-0.7 [facility] Comment on above: Performed By: #### C BC #### [facility] [address] [place], [place] [id number] Rashmi Jessica Eosinophils/100 WBC (Bld) 0.7 % Critically low 0.9-7.0 [facility] Comment on above: Performed By: #### C BC #### [facility] [address] [place], [place] [id number] Rashmi Jessica Erythrocyte distribution width (RBC) [Ratio] 13.1 % Normal 11.0-15.0 [facility] Comment on above: Performed By: #### C BC #### [facility] [address] [place], [place] [id number] Rashmi Jessica Hematocrit (Bld) [Volume fraction] 33.5 % Critically low 36.0-48.0 [facility] Comment on above: Performed By: #### C BC #### [facility] [address] [place], [place] [id number] Rashmi Jessica Hemoglobin (Bld) [Mass/Vol] 11.2 g/dL Critically low 12.0-16.0 [facility] Comment on above: Performed By: #### C BC #### [facility] [address] [id number] Rashmi Jessica IG # 0.14 10e3/ul Critically high 0.00-0.03 [facility] Comment on above: Performed By: #### C BC #### [facility] [address] [id number] Rashmi Jessica IG % 0.9 % Critically high 0.0-0.5 [facility] Comment on above: Performed By: #### C BC #### [facility] [address] [phone] Rashmi Jessica LYMPH # 1.7 103/ul Normal 1.2-3.8 [facility] Comment on above: Performed By: #### C BC #### [facility] [address] [place] [address] Rashmi Jessica Lymphocytes/100 WBC (Bld) 11.4 % Critically low 20.5-60.0 [facility] Comment on above: Performed By: #### C BC #### [facility] [address] [place], [place] [id number] Rashmi Jessica MANUAL DIFF REQ NO Normal [facility] Comment on above: Performed By: #### C BC #### [facility] [address] [place], [place] [id number] Rashmi Jessica MCH (RBC) [Entitic mass] 27.6 pg Normal 26.7-34.0 [facility] Comment on above: Performed By: #### C BC #### [facility] [address] [place] [address] Rashmi Jessica MCHC (RBC) [Mass/Vol] 33.4 g/dL Normal 29.9-35.2 [facility] Comment on above: Performed By: #### C BC #### [facility] [address] [place], [place] [id number] Rashmi Jessica MCV (RBC) [Entitic vol] 82.5 fL Normal 81.0-99.0 [facility] Comment on above: Performed By: #### C BC #### [facility] [address] [place] [address] Rashmi Lopez MONO # 1.5 103/ul Critically high 0.3-0.8 [facility] Comment on above: Performed By: #### C BC #### [facility] [address] [id number] Rashmi Lopez Monocytes/100 WBC (Bld) 10.2 % Normal 1.7-12.0 [facility] Comment on above: Performed By: #### C BC #### [facility] [address] [id number] Rashmi Lopez NEUT # 11.5 103/ul Critically high 1.4-6.5 [facility] Comment on above: Performed By: #### C BC #### [facility] [address] [place] [address] Rashmi Lopez Neutrophils/100 WBC (Bld) 76.5 % Critically high 43.0-75.0 [facility] Comment on above: Performed By: #### C BC #### [facility] [address] [place] [address] Rashmi Lopez Platelet mean volume (Bld) [Entitic vol] 10.0 fL Normal 9.5-13.5 [facility] Comment on above: Performed By: #### C BC #### [facility] [address] [place], [place] [id number] Rashmi Lopez PLT 365 103/ul Normal 150-450 [facility] Comment on above: Performed By: #### C BC #### [facility] [address] [place], [place] [id number] Rashmi Casillasen RBC 4.06 106/ul Critically low 4.20-5.40 [facility] Comment on above: Performed By: #### C BC #### [facility] [address] [place], [place] [id number] Rashmi Jessica WBC 15.1 103/ul Critically high 4.0-11.0 [facility] Comment on above: Performed By: #### C BC #### [facility] [address] [place], [place] [id number] Rashmi Lopez DRUG SCREEN RAPID (URINE)on 07-14-2021 AMP Negative Normal NEGATIVE [facility] Comment on above: Performed By: #### C BC #### [facility] [address] [place] [address] Rashmi Jessica BAR Negative Normal NEGATIVE [facility] Comment on above: Performed By: #### C BC #### [facility] [address] [place] [address] Rashmi Jessica BUP Negative Normal NEGATIVE [facility] Comment on above: Performed By: #### C BC #### [facility] [address] [place] [address] Rashmi Jessica BZO Negative Normal NEGATIVE [facility] Comment on above: Performed By: #### C BC #### [facility] [address] [place] [address] Rashmi Jessica NOHEMI Negative Normal NEGATIVE [facility] Comment on above: Performed By: #### C BC #### [facility] [address] [place] [address] CUT-OFFS SEE BELOW Normal [facility] Comment on above: Result Comment: AMP (Amphetamine): 500ng/mL, BAR (Barbituates): 200 ng/mL, BZO (Benzodiazepines): 150 ng/mL, BUP (Buprenorphine): 10 ng/mL, NOHEMI (Cocaine): 150 ng/mL, mAMP (Methamphetamine): 500 ng/mL, MTD (Methadone): 200 ng/mL, OPI (Opiates): 100 ng/mL, OXY (Oxycodone): 100 ng/mL, PCP (Phencyclidine): 25 ng/mL, PPX (Propoxyphene): 300 ng/mL, THC (Cannabinoids): 50 ng/mL, TCA (Trycyclic Antidepressants): 300 ng/mL Performed By: #### C BC #### [facility] [address] [place] [address] DRUG CUT HEADER DRUG CLASS TEST SYSTEM CUT-OFF CONCENTRATIONS ARE FOLLOWS: Normal [facility] Comment on above: Performed By: #### C BC #### [facility] [address] [place] [address] Rashmi Jessica mAMP Negative Normal NEGATIVE [facility] Comment on above: Performed By: #### C BC #### [facility] [address] [address] Rashmi Jessica MTD Negative Normal NEGATIVE [facility] Comment on above: Performed By: #### C BC #### [facility] [address] [address] Rashmi Jessica OPI Negative Normal NEGATIVE [facility] Comment on above: Performed By: #### C BC #### [facility] [address] [address] Rashmi Jessica OXY Negative Normal NEGATIVE [facility] Comment on above: Performed By: #### C BC #### [facility] [address] [place] [address] Rashmi Jessica PCP Negative Normal NEGATIVE [facility] Comment on above: Performed By: #### C BC #### [facility] [address] [place] [address] Rashmi Jessica PPX Negative Normal NEGATIVE [facility] Comment on above: Performed By: #### C BC #### [facility] [address] [place] [address] Rashmi Jessica TCA Negative Normal NEGATIVE [facility] Comment on above: Performed By: #### C BC #### [facility] [address] [place] [address] Rashmi Jessica THC Negative Normal NEGATIVE [facility] Comment on above: Performed By: #### C BC #### [facility] [address] [place] [address] Rashmi Jessica TYPE AND SCREENon 07-14-2021 TYPE AND SCREEN Negative Normal [facility] Comment on above: Performed By: #### B ILEACD #### [facility] [address] [place] [address] Rashmi Jessica US PREG BIOPHY W NON [...] JEREMIAS REN Date: 2021-07-12 10:53 Normal [facility] US PREG BIOPHY W NON STRESSo n [...] JEREMIAS REN Date: 2021-07-05 10:36 Normal [facility] GROUP B STREP CULTUREon 06-14 S. agalactiae [...] F Tetracycline >=16 R F Normal [facility] Comment on above: Performed By: #### L ACT #### [facility] [address] [place] [address] Dr. Tony Cisneros Family Medicine Office/Clini c [...] unspecified) Ordered: Office Visit Level 3 Est 10657 Follow-up No qualifying data available Problem List/Past [...] Family History Family history is negative Normal [facility] Comment on above: Result Comment: Elec tronically Signed By: Abdirahman SAEZ DO\.br\Date and Time Signed: 06/30/21 21:05 EDT Ambulatory Clinical Summaryo n 06-29-2021 Ambulatory Clinical Summary {[id number] Normal [facility] US PREG BIOPHY W NON STRESSo n [...] JEREMIAS REN Date: 2021-06-28 10:51 Normal [facility] US PREG BIOPHY W NON STRESSo n [...] JEREMIAS REN Date: 2021-06-21 09:57 Normal [facility] CULTURE URINEon 06-19-2021 CULTURE URINE Culture Observations : HEAVY GROWTH OF MIXED GENITAL REMBERTO. NO POTENTIAL PATHOGENS SEEN. Normal [facility] Comment on above: Performed By: #### B ILEACD #### [facility] [address] [place] [address] Rashmi Lopez UA (CLEAN/CATCH) MICROSCOPIC IF INDICATEon 06-19-2021 Bilirubin Ql (U) Negative Normal NEGATIVE [facility] Comment on above: Performed By: #### L ACT #### [facility] [address] [address] [address] Tony Cisneros Clarity (U) CLEAR Normal CLEAR [facility] Comment on above: Performed By: #### L ACT #### [facility] [address] [address] [address] Tony Cisneros Color (U) LT. YELLOW Normal YELLOW [facility] Comment on above: Performed By: #### L ACT #### [facility] [address] [address] [address] Tony Cisneros Glucose Ql (U) Negative Normal NEGATIVE [facility] Comment on above: Performed By: #### L ACT #### [facility] [address] [address] [address] Tony Cisneros Hemoglobin Ql (U) Negative Normal NEGATIVE [facility] Comment on above: Performed By: #### L ACT #### [facility] [address] [place] [address] Dr. Tony Cisneros Ketones Ql (U) Negative Normal NEGATIVE [facility] Comment on above: Performed By: #### L ACT #### [facility] [address] [place] [address] Dr. Tony Cisneros LEUKOCYTES SMALL Abnormal NEGATIVE [facility] Comment on above: Performed By: #### L ACT #### [facility] [address] [place] [address] Dr. Tony Cisneros Nitrite Ql (U) Negative Normal NEGATIVE [facility] Comment on above: Performed By: #### L ACT #### [facility] [address] [place] [address] Dr. Tony Cisneros pH (U) 7.0 [pH] Normal 5-9 [facility] Comment on above: Performed By: #### L ACT #### [facility] [address] [place] [address] Dr. Tony Cisneros SPEC GRAVITY 1.010 Normal 1.005-<=1.025 [facility] Comment on above: Performed By: #### L ACT #### [facility] [address] [place] [address] Dr. Tony Cisneros UA PROTEIN Negative Normal NEGATIVE/ TRACE [facility] Comment on above: Performed By: #### L ACT #### [facility] [address] [place] [address] Dr. Tony Cisneros UR MICRO IND INDICATED Normal [facility] Comment on above: Performed By: #### L ACT #### [facility] [address] [place] [address] Dr. Tony Cisneros Urobilinogen Qn (U) 0.2 {Saw'U}/dL Normal 0.2 - 1. 0 [facility] Comment on above: Performed By: #### L ACT #### [facility] [address] [place] [address] Dr. Toyn Cisneros URINE MICROSCOPIC ONLYon BACTERIA SMALL Abnormal NONE SEEN [facility] Comment on above: Performed By: #### L ACT #### [facility] [address] [place] [address] Dr. Tony Cisneros Bacteria identified Cx Nom (U) INDICATED Normal [facility] Comment on above: Performed By: #### L ACT #### [facility] [address] [place] [address] Dr. Tony Cisneros CAST NONE SEEN Normal NONE SEEN [facility] Comment on above: Performed By: #### L ACT #### [facility] [address] [place] [address] Dr. Tony Cisneros Crystals LM Nom (Urine sed) NONE SEEN Normal NONE SEEN [facility] Comment on above: Performed By: #### L ACT #### [facility] [address] [place] [address] Dr. Tony Cisneros Epithelial cells LM Ql (Urine sed) FEW Abnormal NONE SEEN /RARE [facility] Comment on above: Performed By: #### L ACT #### [facility] [address] [place] [address] Dr. Tony Cisneros MUCOUS NONE SEEN Normal NONE SEEN [facility] Comment on above: Performed By: #### L ACT #### [facility] [address] [place] [address] Dr. Tony Cisneros RBC NONE SEEN Abnormal 0-2 [facility] Comment on above: Performed By: #### L ACT #### [facility] [address] [place] [address] Dr. Tony Cisneros WBC 0-2 Abnormal NONE SEEN [facility] Comment on above: Performed By: #### L ACT #### [facility] [address] [place] [address] Dr. Tony Cisneros US PREG BIOPHY W [...] by: JEREMIAS REN Date: 2021-06-14 11:10 Normal [facility] US PREG GROWTHon 06-14-2021 US PREG GROWTH [...] REN Date: 2021-06-14 11:30 Normal [facility] BILE ACIDS TOTALon Bile Acids 6.7 umol/L Normal 0.0-10.0 [facility] Comment on above: Performed By: #### B ILEACD #### [facility] [address] [place] [address] Rashmiadele Casillasen Carmenn 06-07-2021 AST [Catalytic activity/Vol] 16 U/L Normal 14-36 [facility] Comment on above: Performed By: #### A LT, AST #### [facility] [address] [address] Rashmiadele Casillasen SGPTon 06-07-2021 ALT [Catalytic activity/Vol] 17 U/L Normal 9-52 [facility] Comment on above: Performed By: #### A LT, AST #### [facility] [address] [place] [address] Rashmi Lopez US PREG BIOPHY W NON [...] REN Date: 2021-06-07 10:14 Normal [facility] Encounters Encounter Date Encounter Type Care Provider Facility Start: 11-27-2023 End: 11-27-2023 ambulatory GONZALEZ LUA Not Available Start: 10-20-2023 End: 10-20-2023 ambulatory GONZALEZ LUA Not Available Start: 06-01-2022 End: 06-01-2022 ambulatory [...] NIDA CORONADO Payers Date Payer Category Payer Medicaid [id number] 2021 Unknown [id number] 1998 Unknown [id number] 12.29.83 [id number] 1998 Unknown [id number] [id number] 1998 Unknown [id number] 12.29.84 0.1.896882.3.579.2.593 1998 Unknown [id number] 0.1.957535.3.579.2.593 1998 Unknown [id number] 0.1.396962.3.579.2.593 1998 Unknown [id number] 2.16.84 0.1.149816.3.579.2.593 1998 Unknown [id number] 2.16.84 0.1.905591.3.579.2.593 1998 Unknown [id number] 2.16.84 0.1.423572.3.579.2.593 1998 Unknown [id number] 2.16.84 0.1.951433.3.579.2.593 1998 Unknown [id number] 2.16.84 0.1.875189.3.579.2.593 1998 Unknown [id number] 2.16.84 0.1.714281.3.579.2.593 1998 Unknown [id number] 2.16.84 0.1.967352.3.579.2.593 1998 Unknown [id number] 2.16.84 0.1.035042.3.579.2.593 1998 Unknown [id number] 2.16.84 0.1.015916.3.579.2.593 1998 Unknown [id number] 2.16.84 0.1.317718.3.579.2.593 1998 Unknown [id number] 2.16.84 0.1.429105.3.579.2.593 1998 Unknown [id number] 2.16.84 0.1.944375.3.579.2.593 1998 Unknown [id number] 2.16.84 0.1.103678.3.579.2.1259 1998 Unknown [id number] 2.16.840 .1.797106.3.579.2.1259 1959 Private Health Insurance [id number] Self-pay [id number] Discharge summary note 07-14-2021 Note Date & [...] Tylenol, any abdominal pain unrelieved with narcotics. [facility] Signed and Approved by: DR GONZALEZ LUA . 07/30/2021 09:40:00 IF Signed and Approved by: DR GONZALEZ LUA . 07/30/2021 09:40:00 [facility] Clinical Note 07-14-2021 Note Date & Type Note Facility 07-14-2021 Note OPERATIVE NOTE OPERATION DATE: 07-16-21 ANESTHETIC:Epidural. DAMPER FITTER:KALILE Aguayo PREOPERATIVE DIAGNOSIS: 1. Intrauterine uterine at [...] to the Recovery Room in stable condition. [facility] Signed and Approved by: DR GONZALEZ LUA . 08/03/2021 19:36:00 [facility] Summary Purpose Family History No Family History Records FoundNo Family History Records FoundNo Family History Records Found Advance Directives No Advanced Directives Records FoundNo Advanced Directives Records FoundNo Advanced Directives Records Found Additional Source Comments INFORMATION SOURCE (unrecogn ized section and content) DATE CREATED AUTHOR 06/03/2022 [facility] DATE CREATED AUTHOR AUTHOR'S ORGANIZ ATION 06/04/2022 [facility] DATE CREATED AUTHOR AUTHOR'S ORGANIZ ATION 11/28/2023 [facility] FOR RECORDS PERTAINING TO PATIENTS WHO [...] BE BASED ON THE PRIMARY CLINICAL RECORDS. [facility] [employer] [facility]. provides no warranty or guarantee of the accuracy or completeness of information in this document.
[2023-12-23 12:56] LABS: Bilirubin Urine NEGATIVE (NEGATIVE); Blood Urine NEGATIVE (NEGATIVE); Clarity Urine CLEAR (CLEAR); Color Urine YELLOW (YELLOW); Glucose Urine UA NEGATIVE (NEGATIVE); Ketones Urine 15 mg/dL (NEGATIVE); Leukocyte Esterase Urine SMALL (NEGATIVE); Nitrite Urine NEGATIVE (NEGATIVE); Protein Urine NEGATIVE (NEG/TRACE); pH Urine 8.5 (5.0-9.0)
[2023-12-23 13:02] LABS: Urine Microscopic Indicated YES
[2023-12-23 13:07] LABS: Basophils Percent Auto 0.3 % (0.2-2.0); Eosinophils Absolute Auto 0.1 10^3/uL (0.0-0.7); Eosinophils Percent Auto 0.5 % (0.9-7.0); Hematocrit 35.1 % (36.0-48.0); Immature Granulocytes Abs Auto 0.06 10^3/uL (0.00-0.03); Immature Granulocytes Pct Auto 0.6 % (0.0-0.5); Lymphocytes Absolute Auto 0.9 10^3/uL (1.2-3.8); Lymphocytes Percent Auto 8.6 % (20.5-60.0); Mean Corpuscular HGB Conc 34.2 g/dL (29.9-35.2); Mean Corpuscular Volume 87.8 fL (81.0-99.0); Mean Platelet Volume 9.2 fL (9.5-13.5); Monocytes Absolute Auto 0.9 10^3/uL (0.3-0.8); Monocytes Percent Auto 8.9 % (1.7-12.0); Neutrophils Absolute Auto 8.3 10^3/uL (1.4-6.5); Neutrophils Percent Auto 81.1 % (43.0-75.0); Platelet Count 333 10^3/uL (150-450); Red Cell Distribution Width 13.3 % (11.0-15.0); White Blood Count 10.2 10^3/uL (4.0-11.0)
[2023-12-23 13:14] LABS: Bacteria Urine SMALL #/HPF (NONE SEEN); Cast Seen? NONE SEEN #/LPF (NONE SEEN); Crystals Seen? None Seen #/HPF (None Seen); Mucus Urine NONE SEEN (NONE SEEN); RBC Urine 0-2 #/HPF (0-2); Squamous Epithelial Cell Urine MODERATE #/LPF (NONE/RARE); Urine Culture Indicated YES
[2023-12-23 13:23] LABS: Carbon Dioxide 23.3 mmol/L (21.0-32.0); Chloride 105 mmol/L (98-107); Potassium 3.7 mmol/L (3.5-5.1); Sodium 139 mmol/L (136-145)
[2023-12-23 13:24] LABS: Alanine Aminotransferase 13 U/L (14-59); Albumin Globulin Ratio 0.8; Albumin Level 2.9 g/dL (3.4-5.0); Alkaline Phosphatase 60 U/L (46-116); Anion Gap 14.4; Aspartate Amino Transferase 12 U/L (15-37); BUN Creatinine Ratio 11.8; Bilirubin Total 0.5 mg/dL (0.2-1.0); Calcium 7.9 mg/dL (8.5-10.1); Estimated GFR (African America >60 (>=60); Estimated GFR (Non-African Ame >60 (>=60); Globulin 3.7 g/dL; Glucose 77 mg/dL (74-106); Total Protein 6.6 g/dL (6.4-8.2)
[2023-12-23 14:19] VITALS: BP 142/79; PULSE 76; RESP 18; O2SAT 99
--- NOTE | 2023-12-23 14:47 | ED.FEMALEGU1 ---
HPI - Female Genitourinary General Chief complaint: Vaginal Bleeding Stated complaint: 19 WEEKS BLEEDING AND CRAMPING Time Seen by Provider: 12/23/23 12:47 Source: patient Mode of arrival: walk-in Limitations: no limitations History of Present Illness HPI Narrative: The patient is a 19 weeks with her second after the first while the delivery. The patient presenting to us with a 1 day history of spotting and lower abdominal pain. She did have some nausea and vomiting this morning but she denies any fever chills or any frequency of urination The patient also denies any other complaints. Related Data Home Medications Medication Instructions Recorded Confirmed No Known Home Medications 12/23/23 12/23/23 Previous Rx's Medication Instructions Recorded amoxicillin 875 mg-potassium 1 tab PO Q12H #10 tabs 12/23/23 clavulanate 125 mg tablet Allergies Allergy/AdvReac Type Severity Reaction Status Date / Time erythromycin base Allergy Intermediate Rash Verified 12/23/23 12:26 latex Allergy Mild Rash Uncoded 12/23/23 12:26 Review of Systems ROS Status of ROS 10 or more systems reviewed and unremarkable except as noted in history and below [facility] Social History Smoking status: Never smoker Exam Narrative Exam Narrative: Nurses notes and vital signs reviewed and patient is not hypoxic. General: Well-appearing and in no apparent distress. Skin: Warm, dry, no pallor noted. No rash. Head: Normocephalic, atraumatic. Neck: Supple, non-tender. Eye: Pupils are equal, round and EOMI. No scleral icterus. Ears, Nose, Mouth, and Throat: TM are clear, no nasal mucosal hypertrophy. Oral mucosa is moist, no posterior oropharynx erythema, uvula is mid-line Cardiovascular: Regular Rate and Rhythm without murmur, gallop or rub. Respiratory: No accessory muscle use or respiratory distress. Lungs are clear to auscultation, no wheezing, rales or rhonchi Chest Wall: no tenderness Back: No midline thoracic or lumbar vertebral tenderness. No CVA tenderness Musculoskeletal: normal ROM, no calf or popliteal tenderness, no lower extremity edema/swelling GI: Abdomen is soft, non-distended. Normal bowel sounds. No masses appreciated. No tenderness to palpation. No rebound, guarding, or rigidity noted. Neurological: A&O x4. No cranial nerve dysfunction observed. No truncal ataxia. Moves all extremities. Sensation intact. Psychiatric: Cooperative and interactive. Normal mood and affect. Constitutional Vital Signs, click to edit/add: Last Vital Signs Temp 98.9 F 12/23/23 12:26 Pulse 90 12/23/23 15:16 Resp 18 12/23/23 15:16 BP 133/79 12/23/23 15:16 Pulse Ox 99 12/23/23 15:16 O2 Del Method Room Air 12/23/23 15:16 Course Vital Signs Vital signs: Vital Signs Temperature 98.9 F 12/23/23 12:26 Pulse Rate 98 H 12/23/23 12:26 Respiratory Rate 20 12/23/23 12:26 Pulse Oximetry 100 12/23/23 12:26 Oxygen Delivery Method Room Air 12/23/23 12:26 Temperature 98.9 F 12/23/23 12:26 Pulse Rate 90 12/23/23 15:16 Respiratory Rate 18 12/23/23 15:16 Blood Pressure 133/79 12/23/23 15:16 Pulse Oximetry 99 12/23/23 15:16 Oxygen Delivery Method Room Air 12/23/23 15:16 MDM - Female Genitourinary MDM Narrative Medical decision making narrative: The patient pain was not significant but she was worried about the spotting CBC and chemistry showed no acute pathology but the urine shows some bacteria and the patient will be covered with Augmentin for the asymptomatic bacteriuria with The patient ultrasound shows placenta previa and I did speak with the Dr. Fong who is covering Dr. Noble and she came and spoke with the patient the patient will follow-up as outpatient with instruction to avoid any exertion The patient is to follow up with primary care physician in next 2-3 days or to return to the emergency department should any of the signs or symptoms worsen or new symptoms develop. The patient agrees with the following Diagnosis and Treatment plan and the patient will be discharged home. Lab Data Labs: Lab Results 12/23/23 12/23/23 Range/Units 12:34 13:00 WBC 10.2 (4.0-11.0) 10^3/uL RBC 4.00 L (4.20-5.40) 10^6/uL Hgb 12.0 (12.0-16.0) g/dL Hct 35.1 L (36.0-48.0) % MCV 87.8 (81.0-99.0) fL MCH 30.0 (26.7-34.0) pg MCHC 34.2 (29.9-35.2) g/dL RDW 13.3 (11.0-15.0) % Plt Count 333 (150-450) 10^3/uL MPV 9.2 L (9.5-13.5) fL Neut % (Auto) 81.1 H (43.0-75.0) % Lymph % (Auto) 8.6 L (20.5-60.0) % Smith % (Auto) 8.9 (1.7-12.0) % Eos % (Auto) 0.5 L (0.9-7.0) % Baso % (Auto) 0.3 (0.2-2.0) % Neut # (Auto) 8.3 H (1.4-6.5) 10^3/uL Lymph # (Auto) 0.9 L (1.2-3.8) 10^3/uL Smith # (Auto) 0.9 H (0.3-0.8) 10^3/uL Eos # (Auto) 0.1 (0.0-0.7) 10^3/uL Baso # (Auto) 0.0 (0.0-0.1) 10^3/uL Abs Immat Gran (auto) 0.06 H (0.00-0.03) 10^3/uL Imm/Tot Granulo (auto) 0.6 H (0.0-0.5) % Sodium 139 (136-145) mmol/L Potassium 3.7 (3.5-5.1) mmol/L Chloride 105 (98-107) mmol/L Carbon Dioxide 23.3 (21.0-32.0) mmol/L Anion Gap 14.4 BUN 6.0 L (7.0-18.0) mg/dL Creatinine 0.51 L (0.55-1.02) mg/dL Est GFR ( Amer) >60 (>=60) Est GFR (Non-Af Amer) >60 (>=60) BUN/Creatinine Ratio 11.8 Glucose 77 (74-106) mg/dL Calcium 7.9 L (8.5-10.1) mg/dL Total Bilirubin 0.5 (0.2-1.0) mg/dL AST 12 L (15-37) U/L ALT 13 L (14-59) U/L Alkaline Phosphatase 60 (46-116) U/L Total Protein 6.6 (6.4-8.2) g/dL Albumin 2.9 L (3.4-5.0) g/dL Globulin 3.7 g/dL Albumin/Globulin Ratio 0.8 HCG, Quant 35089 mIU/mL Urine Color Yellow (YELLOW) Urine Clarity Clear (CLEAR) Urine pH 8.5 (5.0-9.0) Ur Specific [place] 1.020 (1.005-1.025) Urine Protein Negative (NEG/TRACE) mg/dL Urine Glucose (UA) Negative (NEGATIVE) mg/dL Urine Ketones 15 A (NEGATIVE) mg/dL Urine Occult Blood Negative (NEGATIVE) Urine Nitrite Negative (NEGATIVE) Urine Bilirubin Negative (NEGATIVE) Urine Urobilinogen 1.0 (0.2-1.0) EU/dL Ur Leukocyte Esterase Small A (NEGATIVE) Urine RBC 0-2 (0-2) #/HPF Urine WBC 5-10 A (NONE SEEN) #/HPF Ur Squamous Epith Cells Moderate A (NONE/RARE) #/LPF Urine Crystals None seen (None Seen) #/HPF Urine Bacteria Small A (NONE SEEN) #/HPF Urine Casts None seen (NONE SEEN) #/LPF Urine Mucus None seen (NONE SEEN) Ur Culture Indicated? Yes Blood Type O Positive Antibody Screen Negative Discharge Plan Discharge Chief Complaint: Vaginal Bleeding Clinical Impression: Placenta previa Qualifiers: Trimester: second trimester Qualified Code(s): O44.02 - Complete placenta previa NOS or without hemorrhage, second trimester Patient Disposition: Home, Self-Care Time of Disposition Decision: 16:06 Condition: Good Prescriptions / Home Meds: New amoxicillin-pot clavulanate 875-125 mg tablet 1 tab PO Q12H Qty: 10 0RF No Action No Known Home Medications Instructions: Placenta Previa (ED) Stand Alone Forms: Portal Instructions Referrals: JESSICA SAEZ [Primary Care Provider] - 1 week
[2023-12-23 15:16] VITALS: BP 133/79; PULSE 90; RESP 18; O2SAT 99
[2023-12-23] MEDS: 0.9 % SODIUM CHLORIDE 1,000 ML 1000 ML IV (15:16)
[2023-12-23 16:07] VITALS: BP 149/86; PULSE 107; RESP 18; O2SAT 98
== END 2023-12-23 16:25 | disposition home or self-care (01) ==
PROVIDERS: Emergency Provider Emergency Medicine; PCP Family Medicine
DX: O44.02 Complete placenta previa NOS or without hemorrhage, second trimester (principal); Z3A.19 19 weeks gestation of pregnancy
CPT/HCPCS: 36415; 76815; 76817; 80053; 81001; 84702; 85025; 86850; 86900; 86901; 87086; 96360; 99285

== ENCOUNTER 2024-01-18 19:49 | Emergency (ER) | payer MEDICAID, SELFPAY ==
[2024-01-18 19:51] VITALS: BP 125/73; PULSE 100; RESP 16; TEMP 36.6; O2SAT 100; BMI 29.8
--- OUTSIDE RECORDS SUMMARY | 2024-01-18 19:55 | XMS_ITS | CCD ---
Author Name Unknown Address [address] [facility] ([place], [place]) [address] [place] [address] Organization [facility] Care Team Providers Care Transfer Iron Operator Name Role Phone NIDA CORONADO Consulting Unavailable [...] NADJA, DR ABDIRAHMAN Ibarra Primary Care Unavailable IVONNE, NIDA Attending Unavailable IVONNE, NIDA Admitting Unavailable IVONNE, [...] Consulting Unavailable IVONNE, NIDA Admitting Unavailable NIDA CORONADO Consulting Unavailable ANTHONY PENNY Consulting Unavailable CHANELL, DR ROTH Procedure Practitioner Unavailab GONZALEZ Armstrong Attending Unavailable CHANELL, GONZALEZ Attending Unavailable GONZALEZ LUA Attending Unavailable Allergies Allergy Classification Reported Allergen(s) Allergy Type Date of Onset Reaction(s) Facility (1 source) Desonide Drug Allergy [facility] (1 source) Erythromycin Drug Allergy 12-04-2020 [facility] (1 source) Latex Drug allergy (disorder) [facility] (1 source) Shellfish Drug allergy (disorder) 05-31-2022 [facility] Problems Active Problems Problem Classification [...] 06-01-2022 BASO # 0.1 103/ul Normal 0.0-0.1 [facility] Comment on above: Performed By: #### C BC #### [facility] [address] [place], [place] [address] Rashmi Jessica Basophils/100 WBC (Bld) 0.5 % Normal 0.2-2.0 [facility] Comment on above: Performed By: #### C BC #### [facility] [address] [place], [place] [address] Rashmi Jessica EO # 0.3 103/ul Normal 0.0-0.7 [facility] Comment on above: Performed By: #### C BC #### [facility] [address] [place] [address] Rashmi Jessica Eosinophils/100 WBC (Bld) 3.3 % Normal 0.9-7.0 [facility] Comment on above: Performed By: #### C BC #### [facility] [address] [place], [place] [address] Rashmi Jessica Erythrocyte distribution width (RBC) [Ratio] 13.5 % Normal 11.0-15.0 [facility] Comment on above: Performed By: #### C BC #### [facility] [address] [place], [place] [address] Rashmi Jessica Hematocrit (Bld) [Volume fraction] 41.8 % Normal 36.0-48.0 [facility] Comment on above: Performed By: #### C BC #### [facility] [address] [place], [place] [address] Rashmi Jessica Hemoglobin (Bld) [Mass/Vol] 13.9 g/dL Normal 12.0-16.0 [facility] Comment on above: Performed By: #### C BC #### [facility] [address] [place], [place] [address] Rashmi Jessica IG # 0.02 10e3/ul Normal 0.00-0.03 [facility] Comment on above: Performed By: #### C BC #### [facility] [address] [place], [place] [address] Rashmi Jessica IG % 0.2 % Normal 0.0-0.5 [facility] Comment on above: Performed By: #### C BC #### [facility] [address] [place], [place] [address] Rashmi Jessica LYMPH # 2.6 103/ul Normal 1.2-3.8 [facility] Comment on above: Performed By: #### C BC #### [facility] [address] [place], [place] [address] Rashmi Lopez Lymphocytes/100 WBC (Bld) 27.8 % Normal 20.5-60.0 [facility] Comment on above: Performed By: #### C BC #### [facility] [address] [place], [place] [address] Rashmiadele Lopez MANUAL DIFF REQ NO Normal [facility] [place] Comment on above: Performed By: #### C BC #### [facility] [address] [place], [place] [address] Rashmiadele Lopez MCH (RBC) [Entitic mass] 27.5 pg Normal 26.7-34.0 [facility] Comment on above: Performed By: #### C BC #### [facility] [address] [place], [place] [address] Rashmiadele Lopez MCHC (RBC) [Mass/Vol] 33.3 g/dL Normal 29.9-35.2 [facility] Comment on above: Performed By: #### C BC #### [facility] [address] [place] [address] Rashmi Jessica MCV (RBC) [Entitic vol] 82.8 fL Normal 81.0-99.0 [facility] Comment on above: Performed By: #### C BC #### [facility] [address] [place], [place] [address] Rashmi Jessica MONO # 1.2 103/ul Critically high 0.3-0.8 [facility] Comment on above: Performed By: #### C BC #### [facility] [address] [place], [place] [address] Rashmi Jessica Monocytes/100 WBC (Bld) 12.6 % Critically high 1.7-12.0 [facility] Comment on above: Performed By: #### C BC #### [facility] [address] [place], [place] [address] Rashmi Jessica NEUT # 5.2 103/ul Normal 1.4-6.5 [facility] Comment on above: Performed By: #### C BC #### [facility] [address] [place], [place] [address] Rashmi Jessica Neutrophils/100 WBC (Bld) 55.6 % Normal 43.0-75.0 [facility] Comment on above: Performed By: #### C BC #### [facility] [address] [place] [address] Rashmiadele Casillasen Platelet mean volume (Bld) [Entitic vol] 9.4 fL Critically low 9.5-13.5 [facility] Comment on above: Performed By: #### C BC #### [facility] [address] [place], [place] [address] Rashmi Jessica PLT 459 103/ul Critically high 150-450 [facility] Comment on above: Performed By: #### C BC #### [facility] [address] [place] [address] Rashmi Jessica RBC 5.05 106/ul Normal 4.20-5.40 [facility] Comment on above: Performed By: #### C BC #### [facility] [address] [place] [address] Rashmi Jessica WBC 9.4 103/ul Normal 4.0-11.0 [facility] Comment on above: Performed By: #### C BC #### [facility] [address] [place] [address] ABD/PELVIS WO CONon 06-01 [...] DELGADO Date: 2022-06-01 01:26 Normal [facility] ER URINE PROFILEon 2 Bilirubin Ql (U) Negative Normal NEGATIVE [facility] Comment on above: Performed By: #### C BC #### [facility] [address] [place], [place] [address] Rashmi Jessica Clarity (U) CLEAR Normal CLEAR [facility] Comment on above: Performed By: #### C BC #### [facility] [address] [place], [place] [address] Rashmi Jessica Color (U) LT. YELLOW Normal YELLOW [facility] Comment on above: Performed By: #### C BC #### [facility] [address] [place] [address] Rashmiadele Casillasen ERUAHD A micrscopic examination will be performed if indicated. Normal [facility] Comment on above: Performed By: #### C BC #### [facility] [address] [place] [address] Rashmi Jessica Glucose Ql (U) Negative Normal NEGATIVE [facility] [place] [facility] Comment on above: Performed By: #### C BC #### [facility] [address] [place] [address] Rashmi Jessica Hemoglobin Ql (U) LARGE Abnormal NEGATIVE [facility] Comment on above: Performed By: #### C BC #### [facility] [address] [place] [address] Rashmi Jessica Ketones Ql (U) Negative Normal NEGATIVE [facility] [place] [facility] Comment on above: Performed By: #### C BC #### [facility] [address] [place] [address] Rashmi Jessica LEUKOCYTES Negative Normal NEGATIVE [facility] Comment on above: Performed By: #### C BC #### [facility] [address] [place] [address] Rashmi Jessica Nitrite Ql (U) Negative Normal NEGATIVE [facility] Comment on above: Performed By: #### C BC #### [facility] [address] [place] [address] Rashmi Jessica pH (U) 6.0 [pH] Normal 5-9 [facility] Comment on above: Performed By: #### C BC #### [facility] [address] [place] [address] Rashmi Jessica SPEC GRAVITY 1.010 Normal 1.005-<=1.025 [facility] Comment on above: Performed By: #### C BC #### [facility] [address] [place] [address] Rashmi Jessica UA PROTEIN Negative Normal NEGATIVE/ TRACE [facility] Comment on above: Performed By: #### C BC #### [facility] [address] [place] [address] Rashmi Jessica UR MICRO IND INDICATED Normal [facility] Comment on above: Performed By: #### C BC #### [facility] [address] [place] [address] Rashmi Jessica Urobilinogen Qn (U) 0.2 {Saw'U}/dL Normal 0.2 - 1. 0 [facility] Comment on above: Performed By: #### C BC #### [facility] [address] [place], [place] [address] Rashmi Jessica LACTATE/LACTIC ACIDon 2021 Lactate [Moles/Vol] 0.8 mmol/L Normal 0.4-1.9 [facility] Comment on above: Performed By: #### L ACT #### [facility] [address] [place], [place] [address] Dr. Tony Cisneros URon 06-01-2022 , QUAL Negative Normal NEGATIVE [facility] Comment on above: Performed By: #### C BC #### [facility] [address] [place], [place] [address] Rashmi Jessica PROF CHEM 8 (BAS METB)on Anion gap [Moles/Vol] 11.6 mmol/L Normal [facility] Comment on above: Performed By: #### C BC #### [facility] [address] [place], [place] [address] Rashmi Jessica Calcium [Mass/Vol] 9.2 mg/dL Normal 8.5-10.1 [facility] Comment on above: Performed By: #### C BC #### [facility] [address] [place], [place] [address] Rashmi Jessica Chloride [Moles/Vol] 104 mmol/L Normal 98-107 [facility] Comment on above: Performed By: #### C BC #### [facility] [address] [place], [place] [address] Rashmi Jessica CO2 [Moles/Vol] 28.0 mmol/L Normal 21.0-32.0 [facility] Comment on above: Performed By: #### C BC #### [facility] [address] [place], [place] [address] Rashmi Jessica Creatinine [Mass/Vol] 0.90 mg/dL Normal 0.55-1.02 [facility] Comment on above: Performed By: #### C BC #### [facility] [address] [place], [place] [address] Rashmi Jessica EGFR-AF AFGHAN >60 Normal >=60 [facility] Comment on above: Performed By: #### C BC #### [facility] [address] [place] [id number] Rashmi Jessica EGFR-NON AF AFGHAN >60 Normal >=60 [facility] Comment on above: Performed By: #### C BC #### [facility] [address] [place] [id number] Rashmi Jessica Glucose [Mass/Vol] 101 mg/dL Normal 74-106 [facility] Comment on above: Performed By: #### C BC #### [facility] [address] [place], [place] [address] Rashmi Jessica Potassium [Moles/Vol] 3.6 mmol/L Normal 3.5-5.1 [facility] Comment on above: Performed By: #### C BC #### [facility] [address] [place] [address] Rashmi Jessica Sodium [Moles/Vol] 140 mmol/L Normal 136-145 [facility] Comment on above: Performed By: #### C BC #### [facility] [address] [place], [place] [address] Rashmi Jessica Urea nitrogen [Mass/Vol] 17.0 mg/dL Normal 7.0-18.0 [facility] Comment on above: Performed By: #### C BC #### [facility] [address] [place] [address] Rashmi Jessica Urea nitrogen/Creatinine [Mass ratio] 18.9 mg/mg Normal [facility] Comment on above: Performed By: #### C BC #### [facility] [address] [place], [place] [address] Rashmi Jessica RAD - CT Reporton 06-01-2022 RAD - CT Report [id number] Normal [facility] URINE MICROSCOPIC ONLYon BACTERIA TRACE Abnormal NONE SEEN [facility] Comment on above: Performed By: #### C BC #### [facility] [address] [place] [address] Rashmiadele Lopez Bacteria identified Cx Nom (U) NOT INDICATED Normal [facility] Comment on above: Performed By: #### C BC #### [facility] [address] [place] [address] Rashmi Jessica CAST NONE SEEN Normal NONE SEEN [facility] Comment on above: Performed By: #### C BC #### [facility] [address] [place], [place] [address] Rashmi Jessica Crystals LM Nom (Urine sed) NONE SEEN Normal NONE SEEN [facility] Comment on above: Performed By: #### C BC #### [facility] [address] [place], [place] [address] Rashmi Jessica Epithelial cells LM Ql (Urine sed) RARE Normal NONE SEEN /RARE [facility] Comment on above: Performed By: #### C BC #### [facility] [address] [place] [address] Rashmi Jessica MUCOUS NONE SEEN Normal NONE SEEN [facility] Comment on above: Performed By: #### C BC #### [facility] [address] [place] [address] Rashmi Jessica RBC 2-5 Abnormal 0-2 [facility] Comment on above: Performed By: #### C BC #### [facility] [address] [place] [address] Rashmi Jessica WBC NONE SEEN Normal NONE SEEN [facility] Comment on above: Performed By: #### C BC #### [facility] [address] [place] [address] Rashmi Lopez Family Medicine Office/Clini c Noteon [...] Family history is negative Normal [facility] Comment on above: Result Comment: Elec tronically [...] With When Contact Information Abdirahman SAEZ DO, FAM Only if needed [address] [place] [address]- Additional Instructions: Problem List/Past Medical History Ongoing [...] Family history is negative Normal [facility] Comment on above: Result Comment: Elec tronically Signed By: Abdirahman SAEZ DO\.br\Date and Time Signed: 11/15/21 15:26 EST AMYLASEon 07-18-2021 Amylase [Catalytic activity/Vol] 38 U/L Normal 31-110 [facility] Comment on above: Performed By: #### C MP, JONATHAN, LDH, ALT, AST, URIC, LIPA #### [facility] [address] [place] [address] Rashmi Jessica CBC AUTO DIFFon 07-18-2021 BASO # 0.0 103/ul Normal 0.0-0.1 [facility] Comment on above: Performed By: #### C BC #### [facility] [address] [place] [id number] Rashmiadele Lopez Basophils/100 WBC (Bld) 0.3 % Normal 0.2-2.0 [facility] Comment on above: Performed By: #### C BC #### [facility] [address] [place] [id number] Rashmi Jessica EO # 0.1 103/ul Normal 0.0-0.7 [facility] Comment on above: Performed By: #### C BC #### [facility] [address] [place], [place] [address] Rashmiadele Casillasen Eosinophils/100 WBC (Bld) 0.8 % Critically low 0.9-7.0 [facility] Comment on above: Performed By: #### C BC #### [facility] [address] [place] [address] Rashmiadele Casillasen Erythrocyte distribution width (RBC) [Ratio] 13.4 % Normal 11.0-15.0 [facility] Comment on above: Performed By: #### C BC #### [facility] [address] [place], [place] [address] Rashmiadele Casillasen Hematocrit (Bld) [Volume fraction] 27.0 % Critically low 36.0-48.0 [facility] Comment on above: Performed By: #### C BC #### [facility] [address] [place] [address] Rashmi Jessica Hemoglobin (Bld) [Mass/Vol] 9.1 g/dL Critically low 12.0-16.0 [facility] Comment on above: Performed By: #### C BC #### [facility] [address] [place], [place] [address] Rashmi Jessica IG # 0.18 10e3/ul Critically high 0.00-0.03 [facility] Comment on above: Performed By: #### C BC #### [facility] [address] [place], [place] [address] Rashmi Jessica IG % 1.2 % Critically high 0.0-0.5 [facility] [place] Comment on above: Performed By: #### C BC #### [facility] [address] [place], [place] [address] Rashmi Lopez LYMPH # 1.0 103/ul Critically low 1.2-3.8 [facility] Comment on above: Performed By: #### C BC #### [facility] [address] [place] [address] Rashmi Lopez Lymphocytes/100 WBC (Bld) 7.0 % Critically low 20.5-60.0 [facility] Comment on above: Performed By: #### C BC #### [facility] [address] [place], [place] [address] Rashmi Lopez MANUAL DIFF REQ NO Normal [facility] [place] Comment on above: Performed By: #### C BC #### [facility] [address] [place] [address] Rashmi Lopez MCH (RBC) [Entitic mass] 28.1 pg Normal 26.7-34.0 [facility] Comment on above: Performed By: #### C BC #### [facility] [address] [place], [place] [address] Rashmi Lopez MCHC (RBC) [Mass/Vol] 33.7 g/dL Normal 29.9-35.2 [facility] Comment on above: Performed By: #### C BC #### [facility] [address] [place] [address] Rashmi Lopez MCV (RBC) [Entitic vol] 83.3 fL Normal 81.0-99.0 [facility] Comment on above: Performed By: #### C BC #### [facility] [address] [place], [place] [address] Rashmiadele Casillasen MONO # 1.1 103/ul Critically high 0.3-0.8 [facility] Comment on above: Performed By: #### C BC #### [facility] [address] [place], [place] [address] Rashmi Lopez Monocytes/100 WBC (Bld) 7.2 % Normal 1.7-12.0 [facility] Comment on above: Performed By: #### C BC #### [facility] [address] [place] [id number] Rashmi Lopez NEUT # 12.2 103/ul Critically high 1.4-6.5 [facility] Comment on above: Performed By: #### C BC #### [facility] [address] [place] [id number] Rashmi Lopez Neutrophils/100 WBC (Bld) 83.5 % Critically high 43.0-75.0 [facility] Comment on above: Performed By: #### C BC #### [facility] [address] [place], [place] [address] Rashmi Lopez Platelet mean volume (Bld) [Entitic vol] 11.2 fL Normal 9.5-13.5 [facility] Comment on above: Performed By: #### C BC #### [facility] [address] [place] [address] Rashmi Casillasen PLT 348 103/ul Normal 150-450 [facility] Comment on above: Performed By: #### C BC #### [facility] [address] [place], [place] [address] Rashmi Jessica RBC 3.24 106/ul Critically low 4.20-5.40 [facility] Comment on above: Performed By: #### C BC #### [facility] [address] [place], [place] [address] Rashmi Lopez WBC 14.6 103/ul Critically high 4.0-11.0 [facility] Comment on above: Performed By: #### C BC #### [facility] [address] [place] [address] Rashmi Lopez LDHon 07-18-2021 LDH 211 U/L Normal 122-222 [facility] Comment on above: Performed By: #### L ACT #### [facility] [address] [place] [address] [address] [address] Tony Cisneros LIPASEon 07-18-2021 Lipase [Catalytic activity/Vol] 68.0 U/L Normal 23.0-300.0 [facility] Comment on above: Performed By: #### C MP, JONATHAN, LDH, ALT, AST, URIC, LIPA #### [facility] [address] [place] [address] Rashmi Lopez PROF 14(COMP METB)on 021 Albumin [Mass/Vol] 2.4 g/dL Critically low 3.5-5.0 [facility] Comment on above: Performed By: #### L ACT #### [facility] [address] [place] [address] Dr. Tony Cisneros Albumin/Globulin [Mass ratio] 0.7 {ratio} Normal [facility] Comment on above: Performed By: #### L ACT #### [facility] [address] [place] [address] Dr. Tony Cisneros ALP [Catalytic activity/Vol] 116 U/L Normal 38-126 [facility] Comment on above: Performed By: #### L ACT #### [facility] [address] [place] [address] Dr. Tony Cisneros Anion gap [Moles/Vol] 13.7 mmol/L Normal [facility] Comment on above: Performed By: #### L ACT #### [facility] [address] [place] [address] Dr. Tony Cisneros Bilirubin [Mass/Vol] 0.2 mg/dL Normal 0.2-1.3 [facility] Comment on above: Performed By: #### L ACT #### [facility] [address] [place] [address] Dr. Tony Cisneros Calcium [Mass/Vol] 7.8 mg/dL Critically low 8.4-10.2 [facility] Comment on above: Performed By: #### L ACT #### [facility] [address] [place] [address] Dr. Tony Cisneros Chloride [Moles/Vol] 105 mmol/L Normal 98-107 [facility] Comment on above: Performed By: #### L ACT #### [facility] [address] [place] [address] Dr. Tony Cisneros CO2 [Moles/Vol] 26.9 mmol/L Normal 22.0-30.0 [facility] Comment on above: Performed By: #### L ACT #### [facility] [address] [place] [address] [address] Tony Cisneros Creatinine [Mass/Vol] 0.58 mg/dL Normal 0.52-1.04 [facility] Comment on above: Performed By: #### L ACT #### [facility] [address] [place] [address] [address] Tony Cisneros EGFR-AF AFGHAN >60 Normal >=60 [facility] Comment on above: Performed By: #### L ACT #### [facility] [address] [place] [address] [address] Tony Cisneros EGFR-NON AF AFGHAN >60 Normal >=60 [facility] Comment on above: Performed By: #### L ACT #### [facility] [address] [place] [address] Dr. Tony Cisneros Globulin (S) [Mass/Vol] 3.5 g/dL Normal [facility] Comment on above: Performed By: #### L ACT #### [facility] [address] [place] [address] [address] Tony Cinseros Glucose [Mass/Vol] 95 mg/dL Normal 74-106 [facility] Comment on above: Performed By: #### L ACT #### [facility] [address] [place] [address] Dr. Tony Cisneros Potassium [Moles/Vol] 3.6 mmol/L Normal 3.4-5.0 [facility] Comment on above: Performed By: #### L ACT #### [facility] [address] [place] [address] [address] Tony Cisneros Protein [Mass/Vol] 5.9 g/dL Critically low 6.1-8.2 [facility] Comment on above: Performed By: #### L ACT #### [facility] [address] [place] [address] [address] Tony Cisneros Sodium [Moles/Vol] 142 mmol/L Normal 137-145 [facility] Comment on above: Performed By: #### L ACT #### [facility] [address] [place] [address] Dr. Tony Cisneros Urea nitrogen [Mass/Vol] 5.0 mg/dL Critically low 7.0-17.0 [facility] Comment on above: Performed By: #### L ACT #### [facility] [address] [place] [address] Dr. Tony Cisneros Urea nitrogen/Creatinine [Mass ratio] 8.6 mg/mg Normal The [facility] Comment on above: Performed By: #### L ACT #### [facility] [address] [place] [address] Dr. Tony Cisneros SGOTon 07-18-2021 AST [Catalytic activity/Vol] 21 U/L Normal 14-36 [facility] Comment on above: Performed By: #### L ACT #### [facility] [address] [place] [address] Dr. Tony Cisneros SGPTon 07-18-2021 ALT [Catalytic activity/Vol] 14 U/L Normal 9-52 [facility] Comment on above: Performed By: #### L ACT #### [facility] [address] [place] [address] Dr. Tony Cisneros URIC ACID SERUMon 07-18-2021 Urate [Mass/Vol] 3.4 mg/dL Normal 2.5-6.2 [facility] Comment on above: Performed By: #### L ACT #### [facility] [address] [place] [address] Dr. Tony Cisneros CBC AUTO DIFFon 07-17-2021 BASO # 0.0 103/ul Normal 0.0-0.1 [facility] Comment on above: Performed By: #### C BC #### [facility] [address] [place] [address] Rashmi Lopez Basophils/100 WBC (Bld) 0.1 % Critically low 0.2-2.0 [facility] Comment on above: Performed By: #### C BC #### [facility] [address] [place] [address] Rashmi Jessica EO # 0.0 103/ul Normal 0.0-0.7 [facility] Comment on above: Performed By: #### C BC #### [facility] [address] [id number] Rashmi Jessica Eosinophils/100 WBC (Bld) 0.1 % Critically low 0.9-7.0 [facility] Comment on above: Performed By: #### C BC #### [facility] [address] [place], [place] [phone] Rashmi Jessica Erythrocyte distribution width (RBC) [Ratio] 13.3 % Normal 11.0-15.0 [facility] Comment on above: Performed By: #### C BC #### [facility] [address] [place], [place] [phone] Rashmi Jessica Hematocrit (Bld) [Volume fraction] 28.5 % Critically low 36.0-48.0 [facility] Comment on above: Performed By: #### C BC #### [facility] [address] [place] [address] Rashmi Jessica Hemoglobin (Bld) [Mass/Vol] 9.3 g/dL Critically low 12.0-16.0 [facility] Comment on above: Performed By: #### C BC #### [facility] [address] [place], [place] [address] Rashmi Jessica IG # 0.18 10e3/ul Critically high 0.00-0.03 [facility] Comment on above: Performed By: #### C BC #### [facility] [address] [place], [place] [address] Rashmi Jessica IG % 0.8 % Critically high 0.0-0.5 [facility] [place] Comment on above: Performed By: #### C BC #### [facility] [address] [place], [place] [phone] Rashmi Jessica LYMPH # 1.1 103/ul Critically low 1.2-3.8 [facility] [place] [facility] Comment on above: Performed By: #### C BC #### [facility] [address] [place], [place] [phone] Rashmi Jessica Lymphocytes/100 WBC (Bld) 4.9 % Critically low 20.5-60.0 [facility] Comment on above: Performed By: #### C BC #### [facility] [address], [place] [address] Rashmi Jessica MANUAL DIFF REQ NO Normal [facility] [place] Comment on above: Performed By: #### C BC #### [facility] [address], [place] [address] Rashmi Jessica MCH (RBC) [Entitic mass] 27.7 pg Normal 26.7-34.0 [facility] Comment on above: Performed By: #### C BC #### [facility] [address] [place] [address] Rashmiadele Lopez MCHC (RBC) [Mass/Vol] 32.6 g/dL Normal 29.9-35.2 [facility] Comment on above: Performed By: #### C BC #### [facility] [address] [place], [place] [phone] Rashmi Jessica MCV (RBC) [Entitic vol] 84.8 fL Normal 81.0-99.0 [facility] Comment on above: Performed By: #### C BC #### [facility] [address] [place] [address] Rashmi Jessica MONO # 1.8 103/ul Critically high 0.3-0.8 [facility] Comment on above: Performed By: #### C BC #### [facility] [address] [place], [place] [address] Rashmi Jessica Monocytes/100 WBC (Bld) 8.1 % Normal 1.7-12.0 [facility] Comment on above: Performed By: #### C BC #### [facility] [address] [place], [place] [address] Rashmi Jessica NEUT # 18.9 103/ul Critically high 1.4-6.5 [facility] Comment on above: Performed By: #### C BC #### [facility] [address] [place], [place] [address] Rashmi Jessica Neutrophils/100 WBC (Bld) 86.0 % Critically high 43.0-75.0 [facility] Comment on above: Performed By: #### C BC #### [facility] [address] [place] [address] Rashmi Lopez Platelet mean volume (Bld) [Entitic vol] 9.9 fL Normal 9.5-13.5 [facility] Comment on above: Performed By: #### C BC #### [facility] [address] [place] [address] Rashmi Lopez PLT 409 103/ul Normal 150-450 [facility] Comment on above: Performed By: #### C BC #### [facility] [address] [place], [place] [address] Rashmi Lopez RBC 3.36 106/ul Critically low 4.20-5.40 [facility] Comment on above: Performed By: #### C BC #### [facility] [address] [place], [place] [address] Rashmi Lopez WBC 22.0 103/ul Critically high 4.0-11.0 [facility] Comment on above: Performed By: #### C BC #### [facility] [address] [place], [place] [phone] Rashmi Lopez ASYMPTOMATIC COVID-19 ANTIGE Non 07-14-2021 EUA Statement SEE BELOW Normal [facility] Comment on above: Result Comment: This [...] Performed By: #### C VDAGA #### [facility] [address] [place], [place] [address] Rashmi Lopez SARS-CoV-2 (COVID-19) RNA CHRISTOPHER+probe Ql (Unsp spec) Negative Normal NEGATIVE [facility] Comment on above: Result Comment: Nega tive results are presumptive. They do not preclude infection and should not be used as the sole basis for treatment decisions. Additional confirmatory testing by a molecular method should be considered. Performed By: #### C VDAGA #### [facility] [address] [place] [phone] Rashmi Jessica CBC AUTO DIFFon 07-14-2021 BASO # 0.1 103/ul Normal 0.0-0.1 [facility] Comment on above: Performed By: #### C BC #### [facility] [address] [place] [address] Rashmi Jessica Basophils/100 WBC (Bld) 0.3 % Normal 0.2-2.0 [facility] Comment on above: Performed By: #### C BC #### [facility] [address] [place], [place] [address] Rashmi Jessica EO # 0.1 103/ul Normal 0.0-0.7 [facility] Comment on above: Performed By: #### C BC #### [facility] [address] [place] [address] Rashmi Jessica Eosinophils/100 WBC (Bld) 0.7 % Critically low 0.9-7.0 [facility] Comment on above: Performed By: #### C BC #### [facility] [address] [place] [address] Rashmi Jessica Erythrocyte distribution width (RBC) [Ratio] 13.1 % Normal 11.0-15.0 [facility] Comment on above: Performed By: #### C BC #### [facility] [address] [place], [place] [address] Rashmi Jessica Hematocrit (Bld) [Volume fraction] 33.5 % Critically low 36.0-48.0 [facility] Comment on above: Performed By: #### C BC #### [facility] [address] [place] [address] Rashmi Jessica Hemoglobin (Bld) [Mass/Vol] 11.2 g/dL Critically low 12.0-16.0 [facility] Comment on above: Performed By: #### C BC #### [facility] [address] [phone] Rashmi Jessica IG # 0.14 10e3/ul Critically high 0.00-0.03 [facility] Comment on above: Performed By: #### C BC #### [facility] [address] [phone] Rashmi Jessica IG % 0.9 % Critically high 0.0-0.5 [facility] [place] Comment on above: Performed By: #### C BC #### [facility] [address] [phone] Rashmi Jessica LYMPH # 1.7 103/ul Normal 1.2-3.8 [facility] Comment on above: Performed By: #### C BC #### [facility] [address] [place] [address] Rashmi Jessica Lymphocytes/100 WBC (Bld) 11.4 % Critically low 20.5-60.0 [facility] Comment on above: Performed By: #### C BC #### [facility] [address] [place], [place] [address] Rashmiadele Lopez MANUAL DIFF REQ NO Normal [facility] [place] Comment on above: Performed By: #### C BC #### [facility] [address] [place], [place] [address] Rashmiadele Casillasen MCH (RBC) [Entitic mass] 27.6 pg Normal 26.7-34.0 [facility] Comment on above: Performed By: #### C BC #### [facility] [address] [place], [place] [address] Rashmiadele Lopez MCHC (RBC) [Mass/Vol] 33.4 g/dL Normal 29.9-35.2 [facility] Comment on above: Performed By: #### C BC #### [facility] [address] [place], [place] [address] Rashmi Jessica MCV (RBC) [Entitic vol] 82.5 fL Normal 81.0-99.0 [facility] Comment on above: Performed By: #### C BC #### [facility] [address], [place] [address] Rashmi Jessica MONO # 1.5 103/ul Critically high 0.3-0.8 [facility] Comment on above: Performed By: #### C BC #### [facility] [address], [place] [address] Rashmi Jessica Monocytes/100 WBC (Bld) 10.2 % Normal 1.7-12.0 [facility] Comment on above: Performed By: #### C BC #### [facility] [address], [place] [address] Rashmi Jessica NEUT # 11.5 103/ul Critically high 1.4-6.5 [facility] Comment on above: Performed By: #### C BC #### [facility] [address] [place], [place] [address] Rashmi Jessica Neutrophils/100 WBC (Bld) 76.5 % Critically high 43.0-75.0 [facility] Comment on above: Performed By: #### C BC #### [facility] [address] [place] [address] Rashmi Jessica Platelet mean volume (Bld) [Entitic vol] 10.0 fL Normal 9.5-13.5 [facility] Comment on above: Performed By: #### C BC #### [facility] [address] [place], [place] [address] Rashmi Jessica PLT 365 103/ul Normal 150-450 [facility] Comment on above: Performed By: #### C BC #### [facility] [address] [place], [place] [address] Rashmi Jessica RBC 4.06 106/ul Critically low 4.20-5.40 [facility] Comment on above: Performed By: #### C BC #### [facility] [address] [place], [place] [address] Rashmi Jessica WBC 15.1 103/ul Critically high 4.0-11.0 [facility] Comment on above: Performed By: #### C BC #### [facility] [address] [place], [place] [address] Rashmiadele Casillasen DRUG SCREEN RAPID (URINE)on 07-14-2021 AMP Negative Normal NEGATIVE [facility] Comment on above: Performed By: #### C BC #### [facility] [address] [place] [address] Rashmi Jessica BAR Negative Normal NEGATIVE [facility] Comment on above: Performed By: #### C BC #### [facility] [address] [place] [address] Rashmi Jessica BUP Negative Normal NEGATIVE [facility] Comment on above: Performed By: #### C BC #### [facility] [address] [place] [address] Rashmi Jessica BZO Negative Normal NEGATIVE [facility] Comment on above: Performed By: #### C BC #### [facility] [address] [place] [address] Rashmi Jessica NOHEMI Negative Normal NEGATIVE [facility] Comment on above: Performed By: #### C BC #### [facility] [address] [place] [address] CUT-OFFS SEE BELOW Normal [facility] Comment on above: Result Comment: AMP [...] Performed By: #### C BC #### [facility] [address] [place] [address] DRUG CUT HEADER DRUG CLASS TEST SYSTEM CUT-OFF CONCENTRATIONS ARE FOLLOWS: Normal [facility] Comment on above: Performed By: #### C BC #### [facility] [address] [place], [place] [address] Rashmi Jessica mAMP Negative Normal NEGATIVE [facility] Comment on above: Performed By: #### C BC #### [facility] [address] [address] Rashmi Jessica MTD Negative Normal NEGATIVE [facility] Comment on above: Performed By: #### C BC #### [facility] [address] [address] Rashmi Jessica OPI Negative Normal NEGATIVE [facility] Comment on above: Performed By: #### C BC #### [facility] [address] [place] [address] Rashmi Jessica OXY Negative Normal NEGATIVE [facility] Comment on above: Performed By: #### C BC #### [facility] [address] [place] [address] Rashmi Jessica PCP Negative Normal NEGATIVE [facility] Comment on above: Performed By: #### C BC #### [facility] [address] [place] [address] Rashmi Jessica PPX Negative Normal NEGATIVE [facility] Comment on above: Performed By: #### C BC #### [facility] [address] [place] [address] Rashmi Jessica TCA Negative Normal NEGATIVE [facility] Comment on above: Performed By: #### C BC #### [facility] [address] [place] [address] Rashmi Jessica THC Negative Normal NEGATIVE [facility] Comment on above: Performed By: #### C BC #### [facility] [address] [place] [address] Rashmi Jessica TYPE AND SCREENon 07-14-2021 TYPE AND SCREEN Negative Normal [facility] [place] Comment on above: Performed By: #### B ILEACD #### [facility] [address] [place] [address] Rashmi Jessica US PREG BIOPHY W NON [...] REN Date: 2021-07-12 10:53 Normal [facility] US PREG BIOPHY W NON [...] by: JEREMIAS REN Date: 2021-07-05 10:36 Normal [facility] GROUP B STREP CULTUREon 06-14 S. [...] S F Tetracycline >=16 R F Normal [facility] Comment on above: Performed By: #### L ACT #### [facility] [address] [place] [address] Dr. Tony Cisneros Family Medicine Office/Clini c [...] unspecified) Ordered: Office Visit Level 3 Est 85638 Follow-up No qualifying data available Problem List/Past [...] Family history is negative Normal [facility] Comment on above: Result Comment: Elec tronically Signed By: Abdirahman SAEZ DO\.br\Date and Time Signed: 06/30/21 21:05 EDT Ambulatory Clinical Summaryo n 06-29-2021 Ambulatory Clinical Summary {[id number] Normal [facility] US PREG BIOPHY W NON STRESSo n [...] REN Date: 2021-06-28 10:51 Normal [facility] US PREG BIOPHY W NON [...] REN Date: 2021-06-21 09:57 Normal [facility] CULTURE URINEon 06-19-2021 CULTURE URINE Culture Observations : HEAVY GROWTH OF MIXED GENITAL REMBERTO. NO POTENTIAL PATHOGENS SEEN. Normal [facility] Comment on above: Performed By: #### B ILEACD #### [facility] [address] [place] [address] Rashmi Lopez UA (CLEAN/CATCH) MICROSCOPIC IF INDICATEon 06-19-2021 Bilirubin Ql (U) Negative Normal NEGATIVE [facility] Comment on above: Performed By: #### L ACT #### [facility] [address] [place] [address] Dr. Tony Cisneros Clarity (U) CLEAR Normal CLEAR [facility] Comment on above: Performed By: #### L ACT #### [facility] [address] [place] [address] Dr. Tony Cisneros Color (U) LT. YELLOW Normal YELLOW [facility] Comment on above: Performed By: #### L ACT #### [facility] [address] [place] [address] Dr. Tony Cisneros Glucose Ql (U) Negative Normal NEGATIVE [facility] Comment on above: Performed By: #### L ACT #### [facility] [address] [place] [address] Dr. Tony Cisneros Hemoglobin Ql (U) Negative Normal NEGATIVE [facility] Comment on above: Performed By: #### L ACT #### [facility] [address] [place] [address] Dr. Tony Cisneros Ketones Ql (U) Negative Normal NEGATIVE [facility] [place] [facility] Comment on above: Performed By: #### L ACT #### [facility] [address] [place] [address] Dr. Tony Cisneros LEUKOCYTES SMALL Abnormal NEGATIVE [facility] Comment on above: Performed By: #### L ACT #### [facility] [address] [place] [address] Dr. Tony Cisneros Nitrite Ql (U) Negative Normal NEGATIVE [facility] Comment on above: Performed By: #### L ACT #### [facility] [address] [place] [address] Dr. Tony Cisneros pH (U) 7.0 [pH] Normal 5-9 [facility] Comment on above: Performed By: #### L ACT #### [facility] [address] [place] [address] Dr. Tony Cisneros SPEC GRAVITY 1.010 Normal 1.005-<=1.025 [facility] Comment on above: Performed By: #### L ACT #### [facility] [address] [place] [address] Dr. Tony Cisneros UA PROTEIN Negative Normal NEGATIVE/ TRACE [facility] Comment on above: Performed By: #### L ACT #### [facility] [address] [place] [address] Dr. Tony Cisneros UR MICRO IND INDICATED Normal [facility] Comment on above: Performed By: #### L ACT #### [facility] [address] [place] [address] Dr. Tony Cisneros Urobilinogen Qn (U) 0.2 {Saw'U}/dL Normal 0.2 - 1. 0 [facility] Comment on above: Performed By: #### L ACT #### [facility] [address] [place] [address] Dr. Tony Cisneros URINE MICROSCOPIC ONLYon BACTERIA SMALL Abnormal NONE SEEN [facility] Comment on above: Performed By: #### L ACT #### [facility] [address] [place] [address] Dr. Tony Cisneros Bacteria identified Cx Nom (U) INDICATED Normal [facility] Comment on above: Performed By: #### L ACT #### [facility] [address] [place] [address] Dr. Tony Cisneros CAST NONE SEEN Normal NONE SEEN [facility] Comment on above: Performed By: #### L ACT #### [facility] [address] [place] [address] Dr. Tony Cisneros Crystals LM Nom (Urine sed) NONE SEEN Normal NONE SEEN [facility] Comment on above: Performed By: #### L ACT #### [facility] [address] [place] [address] Dr. Tony Cisneros Epithelial cells LM Ql (Urine sed) FEW Abnormal NONE SEEN /RARE [facility] Comment on above: Performed By: #### L ACT #### [facility] [address] [place] [address] Dr. Tony Cisneros MUCOUS NONE SEEN Normal NONE SEEN [facility] Comment on above: Performed By: #### L ACT #### [facility] [address] [place] [address] Dr. Tony Cisneros RBC NONE SEEN Abnormal 0-2 [facility] Comment on above: Performed By: #### L ACT #### [facility] [address] [place] [address] Dr. Tony Cisneros WBC 0-2 Abnormal NONE SEEN [facility] Comment on above: Performed By: #### L ACT #### [facility] [address] [place] [address] Dr. Tony Cisneros US PREG BIOPHY W [...] by: JEREMIAS REN Date: 2021-06-14 11:10 Normal [facility] US PREG GROWTHon 06-14-2021 US PREG [...] by: JEREMIAS REN Date: 2021-06-14 11:30 Normal [facility] BILE ACIDS TOTALon Bile Acids 6.7 umol/L Normal 0.0-10.0 [facility] Comment on above: Performed By: #### B ILEACD #### [facility] [address], [place] [address] Rashmiadele Casillasen SGOTon 06-07-2021 AST [Catalytic activity/Vol] 16 U/L Normal 14-36 [facility] Comment on above: Performed By: #### A LT, AST #### [facility] [address] [address] Rashmi Lopez SGPTon 06-07-2021 ALT [Catalytic activity/Vol] 17 U/L Normal 9-52 [facility] Comment on above: Performed By: #### A LT, AST #### [facility] [address] [address] Rashmi Lopez US PREG BIOPHY W NON [...] by: JEREMIAS REN Date: 2021-06-07 10:14 Normal [facility] Encounters Encounter Date Encounter Type Care Provider Facility Start: 01-11-2024 End: 01-11-2024 ambulatory GONZALEZ LUA Not Available Start: 12-25-2023 End: 12-25-2023 ambulatory GONZALEZ LUA Not Available Start: 11-27-2023 End: 11-27-2023 ambulatory GONZALEZ LUA [...] [place] Payers Date Payer Category Payer Medicaid [id number] 2021 Unknown [id number] 1998 Unknown [id number] .16.84 [id number] 1998 Unknown [id number] 0.1.490704.3.579.2.593 1998 Unknown [id number] .16.84 0.1.177293.3.579.2.593 1998 Unknown [id number] 2.16.84 0.1.114157.3.579.2.593 1998 Unknown [id number] 2.16.84 0.1.211649.3.579.2.593 1998 Unknown [id number] 2.16.84 0.1.357746.3.579.2.593 1998 Unknown [id number] 2.16.84 0.1.641623.3.579.2.593 1998 Unknown [id number] 2.16.84 0.1.649188.3.579.2.593 1998 Unknown [id number] 2.16.84 0.1.767492.3.579.2.593 1998 Unknown [id number] 2.16.84 0.1.829518.3.579.2.593 1998 Unknown [id number] 2.16.84 0.1.363718.3.579.2.593 1998 Unknown [id number] 2.16.84 0.1.944605.3.579.2.593 1998 Unknown [id number] 2.16.84 0.1.810060.3.579.2.593 1998 Unknown [id number] 2.16.84 0.1.084220.3.579.2.593 1998 Unknown [id number] 2.16.84 0.1.854845.3.579.2.593 1998 Unknown [id number] 2.16.84 0.1.663786.3.579.2.593 1998 Unknown [id number] 2.16.84 0.1.941991.3.579.2.593 1998 Unknown [id number] 2.16.84 0.1.861705.3.579.2.1259 1998 Unknown [id number] 2.16.84 0.1.693435.3.579.2.1259 1998 Unknown [id number] 2.16.84 0.1.196208.3.579.2.1259 1998 Unknown [id number] 2.16.840 .1.151948.3.579.2.1259 1959 Private Health Insurance [id number] Self-pay [id number] Discharge summary note 07-14-2021 Note Date & [...] Tylenol, any abdominal pain unrelieved with narcotics. [facility] Signed and Approved by: DR GONZALEZ LUA . 07/30/2021 09:40:00 [facility] Signed and Approved by: DR GONZALEZ LUA . 07/30/2021 09:40:00 [facility] Clinical Note 07-14-2021 Note Date & Type Note Facility 07-14-2021 Note OPERATIVE NOTE OPERATION DATE: 07-16-21 ANESTHETIC:[employer]. CORPORATE REAL ESTATE MANAGER:KALLIE Aguayo PREOPERATIVE DIAGNOSIS: 1. Intrauterine uterine at [...] to the Recovery Room in stable condition. [facility] Signed and Approved by: DR GONZALEZ LUA . 08/03/2021 19:36:00 [facility] Summary Purpose Family History No Family History Records FoundNo Family History Records FoundNo Family History Records Found Advance Directives No Advanced Directives Records FoundNo Advanced Directives Records FoundNo Advanced Directives Records Found Additional Source Comments INFORMATION SOURCE (unrecogn ized section and content) DATE CREATED AUTHOR 06/03/2022 [facility] DATE CREATED AUTHOR AUTHOR'S ORGANIZ ATION 06/04/2022 Petros Arcos [facility] DATE CREATED AUTHOR AUTHOR'S ORGANIZ ATION 01/13/2024 [facility] FOR RECORDS PERTAINING TO PATIENTS WHO [...] BE BASED ON THE PRIMARY CLINICAL RECORDS. [facility] [employer] provides no warranty or guarantee of the accuracy or completeness of information in this document.
--- NOTE | 2024-01-18 19:58 | US_ITS ---
The [address] [address] Patient Name: BARON MORA MRN: [id number] date: 2000 Sex: F Assigned Patient Location: ER Current Patient Location: ER Accession/Order Number: [id number] Exam Date: 01/18/2024 20:30 Report Date: 01/18/2024 21:24 At the request of: FRANCINE MARKER Procedure: US venous doppler LE LT ULTRASOUND LEFT LOWER EXTREMITY VENOUS DUPLEX HISTORY: with left leg pain. ICD R60.0 COMPARISON: None. TECHNIQUE: Real-time ultrasound examination with permanent image recording was performed and reviewed on a PACS work station. Each vessel was evaluated for compressibility, Doppler flow, respiratory phasicity, and augmentation. FINDINGS: The left common femoral, superficial femoral, popliteal, proximal greater saphenous, and proximal calf veins are compressible and patent. Normal respiratory phasicity and augmentation are present. There is no deep venous thrombosis. There is no superficial thrombophlebitis. US/US venous doppler LE LT IMPRESSION: Normal left lower extremity venous duplex exam. Electronically authenticated by: AILEEN VIDAL Date: 01/18/2024 21:24
--- NOTE | 2024-01-18 20:06 | ED.GENADUL1 ---
HPI - General Adult General Chief complaint: Extremity Injury, Lower Stated complaint: LEG PAIN Time Seen by Provider: 01/18/24 19:55 Source: patient Mode of arrival: walk-in Limitations: no limitations History of Present Illness HPI narrative: This 23-year-old female who is actually 23 weeks with a placenta previa and being followed by Dr. Noble and high risk maternal- medicine in [place] presents for evaluation of left leg pain. She has pain in the left posterior lower leg and underneath her left knee. She denies any injury. She has been mostly on bedrest due to her placenta previa but has recently stopped bleeding and has been more active in the past week or so according to her mother. She does not smoke. She denies any chest pain or shortness of breath. She denies any dizziness tachycardia or syncope. She denies any abdominal pain or vaginal bleeding. She declines the need for any pain medication at this time. She states she talked to a nurse friend of hers who made her nervous so she presents to [facility] emergency department for further evaluation. Related Data Home Medications Medication Instructions Recorded Confirmed No Known Home Medications 12/23/23 01/18/24 Previous Rx's Medication Instructions Recorded amoxicillin 875 mg-potassium 1 tab PO Q12H #10 tabs 12/23/23 clavulanate 125 mg tablet Allergies Allergy/AdvReac Type Severity Reaction Status Date / Time erythromycin base Allergy Intermediate Rash Verified 01/18/24 19:55 latex Allergy Mild Rash Uncoded 01/18/24 19:55 Review of Systems ROS Status of ROS 10 or more systems reviewed and unremarkable except as noted in history and [facility] Smoking status: Never smoker Exam Narrative Exam Narrative: Nurses note and vital signs reviewed and patient is not hypoxic. Pulse was mildly elevated at 100 General: The patient appears well and in no apparent distress. Patient is resting comfortably on cart. Skin: , Dry, multiple plaques of psoriasis on the face, neck, back, upper and lower extremities, no sign of infection Head: Normocephalic, atraumatic Eye: Normal conjunctiva, no drainage, EOMI. PERRL Ears, Nose, Mouth, and Throat: oral mucosa is moist. Nares patent. Cardiovascular: Regular Rate and Rhythm Respiratory: Patient is in no distress, no accessory muscle use, lungs are clear to auscultation, no wheezing, rales or rhonchi Back: non-tender, no CVA tenderness bilaterally to percussion. GI: Normal bowel sounds, Gravid uterus Musculoskeletal: Calf sizes were measured and are equal, there is mild tenderness to the proximal portion of the posteriorr aspect of the left tibia-fibula/lower leg and posterior popliteal area, there is no redness, swelling, palpable cords or other notable abnormality. Feet are warm and sensate with brisk dorsalis pedis pulses bilaterally Neurological: A&O x4, normal speech Psychiatric: Cooperative Constitutional Vital Signs, click to edit/add: Last Vital Signs Temp 97.9 F 01/18/24 19:51 Pulse 100 H 01/18/24 19:51 Resp 16 01/18/24 19:51 BP 125/73 01/18/24 19:51 Pulse Ox 100 01/18/24 19:51 O2 Del Method Room Air 01/18/24 19:51 Course Vital Signs Vital signs: Vital Signs Temperature 97.9 F 01/18/24 19:51 Pulse Rate 100 H 01/18/24 19:51 Respiratory Rate 16 01/18/24 19:51 Blood Pressure 125/73 01/18/24 19:51 Pulse Oximetry 100 01/18/24 19:51 Oxygen Delivery Method Room Air 01/18/24 19:51 Temperature 97.9 F 01/18/24 19:51 Pulse Rate 100 H 01/18/24 19:51 Respiratory Rate 16 01/18/24 19:51 Blood Pressure 125/73 01/18/24 19:51 Pulse Oximetry 100 01/18/24 19:51 Oxygen Delivery Method Room Air 01/18/24 19:51 Medical Decision Making [facility] Narrative Medical decision making narrative: This 23-year-old female who is probably 23 weeks and being treated for placenta previa by Dr. Noble and high risk maternal- medicine in [place] presents for evaluation of left leg pain. She has recently been on bedrest and since she has not been bleeding she has been more active. She does not do any heavy lifting. She has severe psoriasis. The past couple days she has had pain in the left posterior leg and behind her left knee. She does not smoke. Clinically I do not see evidence of a deep vein thrombosis however an ultrasound was performed and is negative for DVT or any abnormal findings. He is not having any abdominal pain or vaginal bleeding or OB-related complaints at this time. She declined the need for any Tylenol for her leg pain. Medical Records Medical records narrative: The [address] [address] Ultrasound Report Signed Patient: BARON MORA MR#: [id number] : 2000 Acct:[id number] Age/Sex: 23 / F ADM Date: 01/18/24 Loc: ER Attending Dr: Ordering Physician: Sadia Guillermo Date of Service: 01/18/24 Procedure(s): US venous doppler LE LT Accession Number(s): [id number] cc: JESSICA SAEZ ; Sadia Guillermo~ The [address] [address] Patient Name: BARON MORA MRN: [id number] date: 2000 Sex: F Assigned Patient Location: ER Current Patient Location: ER Accession/Order Number: [id number] Exam Date: 01/18/2024 20:30 Report Date: 01/18/2024 21:24 At the request of: SADIA GUILLERMO Procedure: US venous doppler LE LT ULTRASOUND LEFT LOWER EXTREMITY VENOUS DUPLEX HISTORY: with left leg pain. ICD R60.0 COMPARISON: None. TECHNIQUE: Real-time ultrasound examination with permanent image recording was performed and reviewed on a PACS work station. Each vessel was evaluated for compressibility, Doppler flow, respiratory phasicity, and augmentation. FINDINGS: The left common femoral, superficial femoral, popliteal, proximal greater saphenous, and proximal calf veins are compressible and patent. Normal respiratory phasicity and augmentation are present. There is no deep venous thrombosis. There is no superficial thrombophlebitis. US/US venous doppler LE LT IMPRESSION: Normal left lower extremity venous duplex exam. Electronically authenticated by: AILEEN VIDAL Date: 01/18/2024 21:24 Discharge Plan Discharge Stand Alone Forms: Portal Instructions Chief Complaint: Extremity Injury, Lower Clinical Impression: Lower extremity pain, Patient Disposition: Home, Self-Care Time of Disposition Decision: 21:33 Condition: Good Prescriptions / Home Meds: No Action No Known Home Medications amoxicillin-pot clavulanate 875-125 mg tablet 1 tab PO Q12H Qty: 10 0RF Instructions: Leg Cramps (ED), Leg Pain (ED) Referrals: JESSICA SAEZ [Primary Care Provider] - 1 week
--- NOTE | 2024-01-18 20:13 | PC.NURSE ---
pt denies needs for tylenol at this time.
[2024-01-18 22:03] VITALS: PULSE 84; RESP 16; O2SAT 98
== END 2024-01-18 22:04 | disposition home or self-care (01) ==
PROVIDERS: Emergency Provider Emergency Medicine; PCP Family Medicine
DX: O26.892 Other specified pregnancy related conditions, second trimester (principal); M79.605 Pain in left leg; O44.02 Complete placenta previa NOS or without hemorrhage, second trimester; L40.9 Psoriasis, unspecified; Z3A.23 23 weeks gestation of pregnancy
CPT/HCPCS: 93971; 99284

== ENCOUNTER 2024-02-01 11:31 | Outpatient (OUT) | payer MEDICAID, SELFPAY ==
[2024-02-01 11:46] LABS: Basophils Percent Auto 0.3 % (0.2-2.0); Eosinophils Absolute Auto 0.1 10^3/uL (0.0-0.7); Hematocrit 32.7 % (36.0-48.0); Hemoglobin 10.9 g/dL (12.0-16.0); Immature Granulocytes Abs Auto 0.13 10^3/uL (0.00-0.03); Lymphocytes Absolute Auto 1.2 10^3/uL (1.2-3.8); Lymphocytes Percent Auto 9.6 % (20.5-60.0); Mean Corpuscular HGB Conc 33.3 g/dL (29.9-35.2); Mean Corpuscular Hemoglobin 29.2 pg (26.7-34.0); Mean Corpuscular Volume 87.7 fL (81.0-99.0); Mean Platelet Volume 8.9 fL (9.5-13.5); Monocytes Percent Auto 7.6 % (1.7-12.0); Neutrophils Absolute Auto 10.2 10^3/uL (1.4-6.5); Neutrophils Percent Auto 80.5 % (43.0-75.0); Platelet Count 341 10^3/uL (150-450); Red Blood Count 3.73 10^6/uL (4.20-5.40); Red Cell Distribution Width 12.9 % (11.0-15.0); White Blood Count 12.7 10^3/uL (4.0-11.0)
[2024-02-01 13:20] LABS: Estimated Average Glucose 82 mg/dL; Glycohemoglobin A1C 4.5 % (4.5-6.2)
== END 2024-02-01 11:32 | disposition home or self-care (01) ==
LOC: LAB 11:32
PROVIDERS: PCP Family Medicine; Visit Provider Obstetrics & Gynecology
DX: Z13.1 Encounter for screening for diabetes mellitus (principal)
CPT/HCPCS: 36415; 83036; 85025

== ENCOUNTER 2024-02-04 22:45 | Observation (INO) | payer MEDICAID, SELFPAY ==
--- OUTSIDE RECORDS SUMMARY | 2024-02-04 22:49 | XMS_ITS | CCD ---
Author Organization [facility] Care Team Providers Care Sound Cutter Name Role Phone NIDA CORONADO Consulting Unavailable [...] ABDIRAHMAN Ibarra Primary Care Unavailable KARASIK, DR ABDIRAHMAN Lara Unavailable KARASIK, DR LOPEZ Attending Unavailable KARASIK, DR LOPEZ Consulting Unavailable NADJA, DR ABDIRAHMAN Ibarra Primary Care Unavailable CHANELL, DR ROTH Attending Unavailable CHANELL, DR ROTH Admrah Unavailable NADJA, DR ABDIRAHMAN Ibarra Primary Care Unavailable CHANELL, DR ROTH Attending Unavailable CHANELL, DR ROTH Admitting Unavailable CHANELL, DR ROTH Consulting Unavailable CHANELL, DR ROTH Attending Unavailable CHANELL, DR ROTH Admitting Unavailable NADJA, DR ABIDRAHMAN Ibarra Primary Care Unavailable KARASIK, DR LOPEZ [...] NADJA, DR ABDIRAHMAN Ibarra Primary Care Unavailable NIAD CORONADO Attending Unavailable IVONNE, NIDA Admitting Unavailable IVONNE, NIDA Consulting Unavailable NADJA, DR ABDIRAHMAN Ibarra Primary Care Unavailable CHANELL, DR ROTH Attending Unavailable CHANELL, DR ROTH Admitting Unavailable CHANELL, DR ROTH Consulting Unavailable GELA, [...] Unavailable GELA, DR JEREMIAS Phan Consulting Unavailable IVONNE, NIDA Attending Unavailable NADJA, DR ABDIRAHMAN Ibarra Primary Care Unavailable CHANELL, DR ROTH Consulting Unavailable IVONNE, NIDA Admitting Unavailable NIDA CORONADO Consulting Unavailable ANTHONY PENNY Consulting Unavailable CHANELL, DR ROTH Procedure Practitioner Unavailab lynn LUA, GONZALEZ Attending Unavailable CHANELL, GONZLAEZ Attending Unavailable CHANELL, GONZALEZ Attending Unavailable CHANELL, GONZALEZ Attending Unavailable Allergies Allergy Classification Reported Allergen(s) Allergy Type Date of Onset Reaction(s) Facility (1 source) Desonide Drug Allergy [facility] (1 source) Erythromycin Drug Allergy 12-04-2020 [facility] (1 source) Latex Drug allergy (disorder) [facility] (1 source) Shellfish Drug allergy (disorder) 05-31-2022 [facility] Problems Active Problems Problem Classification [...] 06-01-2022 BASO # 0.1 103/ul Normal 0.0-0.1 [facility] Comment on above: Performed By: #### C BC #### [facility] [address] [id number] Rashmi Jessica Basophils/100 WBC (Bld) 0.5 % Normal 0.2-2.0 [facility] Comment on above: Performed By: #### C BC #### [facility] [address] [id number] Rashmi Jessica EO # 0.3 103/ul Normal 0.0-0.7 [facility] Comment on above: Performed By: #### C BC #### [facility] [address] [place], [place] [id number] Rashmi Jessica Eosinophils/100 WBC (Bld) 3.3 % Normal 0.9-7.0 [facility] Comment on above: Performed By: #### C BC #### [facility] [address] [place], [place] [id number] Rashmi Jessica Erythrocyte distribution width (RBC) [Ratio] 13.5 % Normal 11.0-15.0 [facility] Comment on above: Performed By: #### C BC #### [facility] [address] [place], [place] [id number] Rashmi Jessica Hematocrit (Bld) [Volume fraction] 41.8 % Normal 36.0-48.0 [facility] Comment on above: Performed By: #### C BC #### [facility] [address] [id number] Rashmi Jessica Hemoglobin (Bld) [Mass/Vol] 13.9 g/dL Normal 12.0-16.0 [facility] Comment on above: Performed By: #### C BC #### [facility] [address] [address] Rashmi Jessica IG # 0.02 10e3/ul Normal 0.00-0.03 [facility] Comment on above: Performed By: #### C BC #### [facility] [address] [id number] Rashmiadele Lopez IG % 0.2 % Normal 0.0-0.5 [facility] Comment on above: Performed By: #### C BC #### [facility] [address] [place], [place] [address] Rashmi Jessica LYMPH # 2.6 103/ul Normal 1.2-3.8 [facility] Comment on above: Performed By: #### C BC #### [facility] [address] [place], [place] [address] Rashmi Lopez Lymphocytes/100 WBC (Bld) 27.8 % Normal 20.5-60.0 [facility] Comment on above: Performed By: #### C BC #### [facility] [address] [place] [address] Rashmi Lopez MANUAL DIFF REQ NO Normal [facility] Comment on above: Performed By: #### C BC #### [facility] [address] [place] [address] Rashmiadele Lopez MCH (RBC) [Entitic mass] 27.5 pg Normal 26.7-34.0 [facility] Comment on above: Performed By: #### C BC #### [facility] [address] [place] [address] Rashmi Lopez MCHC (RBC) [Mass/Vol] 33.3 g/dL Normal 29.9-35.2 [facility] Comment on above: Performed By: #### C BC #### [facility] [address] [place] [address] Rashmiadele Lopez MCV (RBC) [Entitic vol] 82.8 fL Normal 81.0-99.0 [facility] Comment on above: Performed By: #### C BC #### [facility] [address] [place], [place] [address] Rashmi Jessica MONO # 1.2 103/ul Critically high 0.3-0.8 [facility] Comment on above: Performed By: #### C BC #### [facility] [address] [place], [place] [address] Rashmi Casillasen Monocytes/100 WBC (Bld) 12.6 % Critically high 1.7-12.0 [facility] Comment on above: Performed By: #### C BC #### [facility] [address] [place], [place] [address] Rashmi Lopez NEUT # 5.2 103/ul Normal 1.4-6.5 [facility] Comment on above: Performed By: #### C BC #### [facility] [address] [place], [place] [address] Rashmi Casillasen Neutrophils/100 WBC (Bld) 55.6 % Normal 43.0-75.0 [facility] Comment on above: Performed By: #### C BC #### [facility] [address] [place], [place] [address] Rashmi Lopez Platelet mean volume (Bld) [Entitic vol] 9.4 fL Critically low 9.5-13.5 [facility] Comment on above: Performed By: #### C BC #### [facility] [address] [place], [place] [address] Rashmiadele Casillasen PLT 459 103/ul Critically high 150-450 [facility] Comment on above: Performed By: #### C BC #### [facility] [address] [place], [place] [address] Rashmi Jessica RBC 5.05 106/ul Normal 4.20-5.40 [facility] Comment on above: Performed By: #### C BC #### [facility] [address] [place], [place] [address] Rashmiadele Casillasen WBC 9.4 103/ul Normal 4.0-11.0 [facility] Comment on above: Performed By: #### C BC #### [facility] [address] [place], [place] [address] Rashmi Jessica CT ABD/PELVIS WO CONon 06-01 [...] Pito DELGADO Date: 2022-06-01 01:26 Normal [facility] ER URINE PROFILEon 2 Bilirubin Ql (U) Negative Normal NEGATIVE [facility] Comment on above: Performed By: #### C BC #### [facility] [address] [place] [address] Rashmi Jessica Clarity (U) CLEAR Normal CLEAR [facility] Comment on above: Performed By: #### C BC #### [facility] [address] [place] [address] Rashmi Jessica Color (U) LT. YELLOW Normal YELLOW [facility] Comment on above: Performed By: #### C BC #### [facility] [address] [place] [address] Rashmi Jessica ERUAHD A micrscopic examination will be performed if indicated. Normal [facility] Comment on above: Performed By: #### C BC #### [facility] [address] [place], [place] [address] Rashmi Jessica Glucose Ql (U) Negative Normal NEGATIVE [facility] Comment on above: Performed By: #### C BC #### [facility] [address] [place] [address] Rashmi Jessica Hemoglobin Ql (U) LARGE Abnormal NEGATIVE [facility] Comment on above: Performed By: #### C BC #### [facility] [address] [place], [place] [address] Rashmi Jessica Ketones Ql (U) Negative Normal NEGATIVE [facility] Comment on above: Performed By: #### C BC #### [facility] [address] [place] [address] Rashmi Jessica LEUKOCYTES Negative Normal NEGATIVE [facility] Comment on above: Performed By: #### C BC #### [facility] [address] [place] [address] Rashmi Jessica Nitrite Ql (U) Negative Normal NEGATIVE [facility] Comment on above: Performed By: #### C BC #### [facility] [address] [place] [address] Rashmi Jessica pH (U) 6.0 [pH] Normal 5-9 [facility] Comment on above: Performed By: #### C BC #### [facility] [address] [place] [address] Rashmi Jessica SPEC GRAVITY 1.010 Normal 1.005-<=1.025 [facility] Comment on above: Performed By: #### C BC #### [facility] [address] [place] [address] Rashmi Jessica UA PROTEIN Negative Normal NEGATIVE/ TRACE [facility] Comment on above: Performed By: #### C BC #### [facility] [address] [place] [address] Rashmi Jessica UR MICRO IND INDICATED Normal [facility] Comment on above: Performed By: #### C BC #### [facility] [address] [place] [address] Rashmi Jessica Urobilinogen Qn (U) 0.2 {Saw'U}/dL Normal 0.2 - 1. 0 [facility] Comment on above: Performed By: #### C BC #### [facility] [address] [place], [place] [address] Rashmi Jessica LACTATE/LACTIC ACIDon 2021 Lactate [Moles/Vol] 0.8 mmol/L Normal 0.4-1.9 [facility] Comment on above: Performed By: #### L ACT #### [facility] [address] [place], [place] [address] Dr. Tony Cisneros URon 06-01-2022 , QUAL Negative Normal NEGATIVE [facility] Comment on above: Performed By: #### C BC #### [facility] [address] [place], [place] [address] Rashmi Jessica PROF CHEM 8 (BAS METB)on Anion gap [Moles/Vol] 11.6 mmol/L Normal [facility] Comment on above: Performed By: #### C BC #### [facility] [address] [place], [place] [address] Rashmi Jessica Calcium [Mass/Vol] 9.2 mg/dL Normal 8.5-10.1 [facility] Comment on above: Performed By: #### C BC #### [facility] [address] [place], [place] [address] Rashmi Jessica Chloride [Moles/Vol] 104 mmol/L Normal 98-107 [facility] Comment on above: Performed By: #### C BC #### [facility] [address] [place], [place] [address] Rashmi Jessica CO2 [Moles/Vol] 28.0 mmol/L Normal 21.0-32.0 [facility] Comment on above: Performed By: #### C BC #### [facility] [address] [place], [place] [address] Rashmi Jessica Creatinine [Mass/Vol] 0.90 mg/dL Normal 0.55-1.02 [facility] Comment on above: Performed By: #### C BC #### [facility] [address] [place], [place] [address] Rashmi Jessica EGFR-AF IRISH >60 Normal >=60 [facility] Comment on above: Performed By: #### C BC #### [facility] [address] [place], [place] [address] Rashmi Jessica EGFR-NON AF IRISH >60 Normal >=60 [facility] Comment on above: Performed By: #### C BC #### [facility] [address] [place], [place] [address] Rashmi Jessica Glucose [Mass/Vol] 101 mg/dL Normal 74-106 [facility] Comment on above: Performed By: #### C BC #### [facility] [address] [place], [place] [address] Rashmi Jessica Potassium [Moles/Vol] 3.6 mmol/L Normal 3.5-5.1 [facility] Comment on above: Performed By: #### C BC #### [facility] [address] [place], [place] [address] Rashmi Jessica Sodium [Moles/Vol] 140 mmol/L Normal 136-145 [facility] Comment on above: Performed By: #### C BC #### [facility] [address] [place], [place] [address] Rashmi Jessica Urea nitrogen [Mass/Vol] 17.0 mg/dL Normal 7.0-18.0 [facility] Comment on above: Performed By: #### C BC #### [facility] [address] [place], [place] [address] Rashmi Jessica Urea nitrogen/Creatinine [Mass ratio] 18.9 mg/mg Normal [facility] Comment on above: Performed By: #### C BC #### [facility] [address] [place] [address] Rashmi Jessica RAD - CT Reporton 06-01-2022 RAD - CT Report [id number] Normal [facility] URINE MICROSCOPIC ONLYon BACTERIA TRACE Abnormal NONE SEEN [facility] Comment on above: Performed By: #### C BC #### [facility] [address] [place], [place] [address] Rashmi Jessica Bacteria identified Cx Nom (U) NOT INDICATED Normal [facility] Comment on above: Performed By: #### C BC #### [facility] [address] [place] [address] Rashmiadele Lopez CAST NONE SEEN Normal NONE SEEN [facility] Comment on above: Performed By: #### C BC #### [facility] [address] [place] [address] Rashmi Jessica Crystals LM Nom (Urine sed) NONE SEEN Normal NONE SEEN [facility] Comment on above: Performed By: #### C BC #### [facility] [address] [place] [address] Rashmiadele Lopez Epithelial cells LM Ql (Urine sed) RARE Normal NONE SEEN /RARE [facility] Comment on above: Performed By: #### C BC #### [facility] [address] [place] [address] Rashmi Jessica MUCOUS NONE SEEN Normal NONE SEEN [facility] Comment on above: Performed By: #### C BC #### [facility] [address] [place] [address] Rashmi Jessica RBC 2-5 Abnormal 0-2 [facility] Comment on above: Performed By: #### C BC #### [facility] [address] [place] [address] Rashmi Jessica WBC NONE SEEN Normal NONE SEEN [facility] Comment on above: Performed By: #### C BC #### [facility] [address] [place] [address] Rashmi Lopez Family Medicine Office/Clini c Noteon [...] Family History Family history is negative Normal [facility] Comment on above: Result Comment: Elec tronically [...] With When Contact Information Abdirahman SAEZ DO, [facility] Only if needed [address] [place] [phone] Additional Instructions: Problem List/Past Medical History Ongoing [...] Family History Family history is negative Normal [facility] Comment on above: Result Comment: Elec tronically Signed By: Abdirahman SAEZ DO\.br\Date and Time Signed: 11/15/21 15:26 EST AMYLASEon 07-18-2021 Amylase [Catalytic activity/Vol] 38 U/L Normal 31-110 [facility] Comment on above: Performed By: #### C MP, JONATHAN, LDH, ALT, AST, URIC, LIPA #### [facility] [address] [id number] Rashmi Lopez CBC AUTO DIFFon 07-18-2021 BASO # 0.0 103/ul Normal 0.0-0.1 [facility] Comment on above: Performed By: #### C BC #### [facility] [address] [id number] Rashmi Jessica Basophils/100 WBC (Bld) 0.3 % Normal 0.2-2.0 [facility] Comment on above: Performed By: #### C BC #### [facility] [address] [id number] Rashmi Jessica EO # 0.1 103/ul Normal 0.0-0.7 [facility] Comment on above: Performed By: #### C BC #### [facility] [address] [id number] Rashmi Jessica Eosinophils/100 WBC (Bld) 0.8 % Critically low 0.9-7.0 [facility] Comment on above: Performed By: #### C BC #### [facility] [address] [place], [place] [address] Rashmi Jessica Erythrocyte distribution width (RBC) [Ratio] 13.4 % Normal 11.0-15.0 [facility] Comment on above: Performed By: #### C BC #### [facility] [address] [place], [place] [address] Rashmi Jessica Hematocrit (Bld) [Volume fraction] 27.0 % Critically low 36.0-48.0 [facility] Comment on above: Performed By: #### C BC #### [facility] [address] [place], [place] [address] Rashmi Jessica Hemoglobin (Bld) [Mass/Vol] 9.1 g/dL Critically low 12.0-16.0 [facility] Comment on above: Performed By: #### C BC #### [facility] [address] [place], [place] [address] Rashmi Jessica IG # 0.18 10e3/ul Critically high 0.00-0.[address] [facility] Comment on above: Performed By: #### C BC #### [facility] [address] [id number] Rashmi Jessica IG % 1.2 % Critically high 0.0-0.5 [facility] Comment on above: Performed By: #### C BC #### [facility] [address] [id number] Rashmi Jessica LYMPH # 1.0 103/ul Critically low 1.2-3.8 [facility] Comment on above: Performed By: #### C BC #### [facility] [address] [id number] Rashmi Jessica Lymphocytes/100 WBC (Bld) 7.0 % Critically low 20.5-60.0 [facility] Comment on above: Performed By: #### C BC #### [facility] [address] [place], [place] [address] Rashmi Jessica MANUAL DIFF REQ NO Normal [facility] Comment on above: Performed By: #### C BC #### [facility] [address] [place] [address] Rashmiadele Casillasen MCH (RBC) [Entitic mass] 28.1 pg Normal 26.7-34.0 [facility] Comment on above: Performed By: #### C BC #### [facility] [address] [place], [place] [address] Rashmiadele Lopez MCHC (RBC) [Mass/Vol] 33.7 g/dL Normal 29.9-35.2 [facility] Comment on above: Performed By: #### C BC #### [facility] [address] [place], [place] [address] Rashmiadele Lopez MCV (RBC) [Entitic vol] 83.3 fL Normal 81.0-99.0 [facility] Comment on above: Performed By: #### C BC #### [facility] [address] [place], [place] [address] Rashmi Jessica MONO # 1.1 103/ul Critically high 0.3-0.8 [facility] Comment on above: Performed By: #### C BC #### [facility] [address] [place], [place] [address] Rashmi Jessica Monocytes/100 WBC (Bld) 7.2 % Normal 1.7-12.0 [facility] Comment on above: Performed By: #### C BC #### [facility] [address] [id number] Rashmi Lopez NEUT # 12.2 103/ul Critically high 1.4-6.5 [facility] Comment on above: Performed By: #### C BC #### [facility] [address] [place], [place] [address] Rashmi Lopez Neutrophils/100 WBC (Bld) 83.5 % Critically high 43.0-75.0 [facility] Comment on above: Performed By: #### C BC #### [facility] [address] [place], [place] [address] Rashmi Lopez Platelet mean volume (Bld) [Entitic vol] 11.2 fL Normal 9.5-13.5 [facility] Comment on above: Performed By: #### C BC #### [facility] [address] [place] [address] Rashmiadele Casillasen PLT 348 103/ul Normal 150-450 [facility] Comment on above: Performed By: #### C BC #### [facility] [address] [place], [place] [address] Rashmi Jessica RBC 3.24 106/ul Critically low 4.20-5.40 [facility] Comment on above: Performed By: #### C BC #### [facility] [address] [place], [place] [address] Rashmiadele Lopez WBC 14.6 103/ul Critically high 4.0-11.0 [facility] Comment on above: Performed By: #### C BC #### [facility] [address] [place] [address] Rashmi Lopez LDHon 07-18-2021 LDH 211 U/L Normal 122-222 [facility] Comment on above: Performed By: #### L ACT #### [facility] [address] [place], [place] [address] Dr. Tony Cisneros LIPASEon 07-18-2021 Lipase [Catalytic activity/Vol] 68.0 U/L Normal 23.0-300.0 [facility] Comment on above: Performed By: #### C MP, JONATHAN, LDH, ALT, AST, URIC, LIPA #### [facility] [address] [address] Rashmi Lopez PROF 14(COMP METB)on 021 Albumin [Mass/Vol] 2.4 g/dL Critically low 3.5-5.0 [facility] Comment on above: Performed By: #### L ACT #### [facility] [address] [address] [address] Tony Cisneros Albumin/Globulin [Mass ratio] 0.7 {ratio} Normal [facility] Comment on above: Performed By: #### L ACT #### [facility] [address] [address] [address] Tony Cisneros ALP [Catalytic activity/Vol] 116 U/L Normal 38-126 [facility] Comment on above: Performed By: #### L ACT #### [facility] [address] [place] [address] Dr. Tony Cisneros Anion gap [Moles/Vol] 13.7 mmol/L Normal [facility] Comment on above: Performed By: #### L ACT #### [facility] [address] [place] [address] Dr. Tony Cisneros Bilirubin [Mass/Vol] 0.2 mg/dL Normal 0.2-1.3 [facility] Comment on above: Performed By: #### L ACT #### [facility] [address] [place] [address] Dr. Tony Cisneros Calcium [Mass/Vol] 7.8 mg/dL Critically low 8.4-10.2 [facility] Comment on above: Performed By: #### L ACT #### [facility] [address] [address] [address] Tony Cisneros Chloride [Moles/Vol] 105 mmol/L Normal 98-107 [facility] Comment on above: Performed By: #### L ACT #### [facility] [address] [address] [address] Tony Cisneros CO2 [Moles/Vol] 26.9 mmol/L Normal 22.0-30.0 [facility] Comment on above: Performed By: #### L ACT #### [facility] [address] [address] [address] Tony Cisneros Creatinine [Mass/Vol] 0.58 mg/dL Normal 0.52-1.04 [facility] Comment on above: Performed By: #### L ACT #### [facility] [address] [address] [address] Tony Cisneros EGFR-AF IRISH >60 Normal >=60 [facility] Comment on above: Performed By: #### L ACT #### [facility] [address] [address] [address] Tony Cisneros EGFR-NON AF IRISH >60 Normal >=60 [facility] Comment on above: Performed By: #### L ACT #### [facility] [address] [place] [address] Dr. Tony Cisneros Globulin (S) [Mass/Vol] 3.5 g/dL Normal [facility] Comment on above: Performed By: #### L ACT #### [facility] [address] [place] [address] Dr. Tony Cisneros Glucose [Mass/Vol] 95 mg/dL Normal 74-106 [facility] Comment on above: Performed By: #### L ACT #### [facility] [address] [place] [address] Dr. Tony Cisneros Potassium [Moles/Vol] 3.6 mmol/L Normal 3.4-5.0 [facility] Comment on above: Performed By: #### L ACT #### [facility] [address] [place] [address] Dr. Tony Cisneros Protein [Mass/Vol] 5.9 g/dL Critically low 6.1-8.2 [facility] Comment on above: Performed By: #### L ACT #### [facility] [address] [place] [address] Dr. Tony Cisneros Sodium [Moles/Vol] 142 mmol/L Normal 137-145 [facility] Comment on above: Performed By: #### L ACT #### [facility] [address] [place] [address] Dr. Tony Cisneros Urea nitrogen [Mass/Vol] 5.0 mg/dL Critically low 7.0-17.0 [facility] Comment on above: Performed By: #### L ACT #### [facility] [address] [place] [address] Dr. Tony Cisneros Urea nitrogen/Creatinine [Mass ratio] 8.6 mg/mg Normal [facility] Comment on above: Performed By: #### L ACT #### [facility] [address] [place] [address] Dr. Tony Cisneros SGOTon 07-18-2021 AST [Catalytic activity/Vol] 21 U/L Normal 14-36 [facility] Comment on above: Performed By: #### L ACT #### [facility] [address] [place] [address] Dr. Tony Cisneros SGPTon 07-18-2021 ALT [Catalytic activity/Vol] 14 U/L Normal 9-52 [facility] Comment on above: Performed By: #### L ACT #### [facility] [address] [place] [address] Dr. Tony Cisneros URIC ACID SERUMon 07-18-2021 Urate [Mass/Vol] 3.4 mg/dL Normal 2.5-6.2 [facility] Comment on above: Performed By: #### L ACT #### [facility] [address] [place] [address] Dr. Tony Cisneros CBC AUTO DIFFon 07-17-2021 BASO # 0.0 103/ul Normal 0.0-0.1 [facility] Comment on above: Performed By: #### C BC #### [facility] [address] [place] [address] Rashmi Jessica Basophils/100 WBC (Bld) 0.1 % Critically low 0.2-2.0 [facility] Comment on above: Performed By: #### C BC #### [facility] [address] [place] [address] Rashmi Jessica EO # 0.0 103/ul Normal 0.0-0.7 [facility] Comment on above: Performed By: #### C BC #### [facility] [address] [id number] Rashmi Jessica Eosinophils/100 WBC (Bld) 0.1 % Critically low 0.9-7.0 [facility] Comment on above: Performed By: #### C BC #### [facility] [address] [id number] Rashmi Jessica Erythrocyte distribution width (RBC) [Ratio] 13.3 % Normal 11.0-15.0 [facility] Comment on above: Performed By: #### C BC #### [facility] [address] [place], [place] [id number] Rashmi Jessica Hematocrit (Bld) [Volume fraction] 28.5 % Critically low 36.0-48.0 [facility] Comment on above: Performed By: #### C BC #### [facility] [address] [place] [address] Rashmi Jessica Hemoglobin (Bld) [Mass/Vol] 9.3 g/dL Critically low 12.0-16.0 [facility] Comment on above: Performed By: #### C BC #### [facility] [address] [place], [place] [id number] Rashmi Jessica IG # 0.18 10e3/ul Critically high 0.00-0.[address] [facility] Comment on above: Performed By: #### C BC #### [facility] [address] [place], [place] [address] Rashmi Jessica IG % 0.8 % Critically high 0.0-0.5 [facility] Comment on above: Performed By: #### C BC #### [facility] [address] [place] [address] Rashmi Jessica LYMPH # 1.1 103/ul Critically low 1.2-3.8 [facility] Comment on above: Performed By: #### C BC #### [facility] [address] [place], [place] [id number] Rashmi Jessica Lymphocytes/100 WBC (Bld) 4.9 % Critically low 20.5-60.0 [facility] Comment on above: Performed By: #### C BC #### [facility] [address] [place], [place] [id number] Rashmi Jessica MANUAL DIFF REQ NO Normal [facility] Comment on above: Performed By: #### C BC #### [facility] [address] [place], [place] [address] Rashmiadele Lopez MCH (RBC) [Entitic mass] 27.7 pg Normal 26.7-34.0 [facility] Comment on above: Performed By: #### C BC #### [facility] [address] [place], [place] [id number] Rashmi Lopez MCHC (RBC) [Mass/Vol] 32.6 g/dL Normal 29.9-35.2 [facility] Comment on above: Performed By: #### C BC #### [facility] [address] [place] [address] Rashmiadele Lopez MCV (RBC) [Entitic vol] 84.8 fL Normal 81.0-99.0 [facility] Comment on above: Performed By: #### C BC #### [facility] [address] [place] [address] Rashmi Jessica MONO # 1.8 103/ul Critically high 0.3-0.8 [facility] Comment on above: Performed By: #### C BC #### [facility] [address] [place], [place] [address] Rashmi Jessica Monocytes/100 WBC (Bld) 8.1 % Normal 1.7-12.0 [facility] Comment on above: Performed By: #### C BC #### [facility] [address] [place] [address] Rashmi Jessica NEUT # 18.9 103/ul Critically high 1.4-6.5 [facility] Comment on above: Performed By: #### C BC #### [facility] [address] [place], [place] [address] Rashmi Jessica Neutrophils/100 WBC (Bld) 86.0 % Critically high 43.0-75.0 [facility] Comment on above: Performed By: #### C BC #### [facility] [address] [place] [address] Rashmi Lopez Platelet mean volume (Bld) [Entitic vol] 9.9 fL Normal 9.5-13.5 [facility] Comment on above: Performed By: #### C BC #### [facility] [address] [place] [address] Rashmi Lopez PLT 409 103/ul Normal 150-450 [facility] Comment on above: Performed By: #### C BC #### [facility] [address] [place], [place] [address] Rashmi Lopez RBC 3.36 106/ul Critically low 4.20-5.40 [facility] Comment on above: Performed By: #### C BC #### [facility] [address] [place], [place] [address] Rashmi Lopez WBC 22.0 103/ul Critically high 4.0-11.0 [facility] Comment on above: Performed By: #### C BC #### [facility] [address] [place], [place] [address] Rashmi Lopez ASYMPTOMATIC COVID-19 ANTIGE Non 07-14-2021 EUA Statement SEE BELOW Normal [facility] Comment on above: Result Comment: This [...] sooner. Performed By: #### C VDAGA #### [facility] [address] [place] [address] Rashmi Lopez SARS-CoV-2 (COVID-19) RNA CHRISTOPHER+probe Ql (Unsp spec) Negative Normal NEGATIVE [facility] Comment on above: Result Comment: Nega tive results are presumptive. They do not preclude infection and should not be used as the sole basis for treatment decisions. Additional confirmatory testing by a molecular method should be considered. Performed By: #### C VDAGA #### [facility] [address] [place], [place] [address] Rashmi Jessica CBC AUTO DIFFon 07-14-2021 BASO # 0.1 103/ul Normal 0.0-0.1 [facility] Comment on above: Performed By: #### C BC #### [facility] [address] [place], [place] [address] Rashmi Jessica Basophils/100 WBC (Bld) 0.3 % Normal 0.2-2.0 [facility] Comment on above: Performed By: #### C BC #### [facility] [address] [place], [place] [address] Rashmi Jessica EO # 0.1 103/ul Normal 0.0-0.7 [facility] Comment on above: Performed By: #### C BC #### [facility] [address] [place], [place] [address] Rashmi Jessica Eosinophils/100 WBC (Bld) 0.7 % Critically low 0.9-7.0 [facility] Comment on above: Performed By: #### C BC #### [facility] [address] [place], [place] [address] Rashmi Jessica Erythrocyte distribution width (RBC) [Ratio] 13.1 % Normal 11.0-15.0 [facility] Comment on above: Performed By: #### C BC #### [facility] [address] [place], [place] [address] Rashmi Jessica Hematocrit (Bld) [Volume fraction] 33.5 % Critically low 36.0-48.0 [facility] Comment on above: Performed By: #### C BC #### [facility] [address] [place], [place] [address] Rashmi Jessica Hemoglobin (Bld) [Mass/Vol] 11.2 g/dL Critically low 12.0-16.0 [facility] Comment on above: Performed By: #### C BC #### [facility] [address] [id number] Rashmi Jessica IG # 0.14 10e3/ul Critically high 0.00-0.[address] [facility] Comment on above: Performed By: #### C BC #### [facility] [address] [id number] Rashmi Jessica IG % 0.9 % Critically high 0.0-0.5 [facility] Comment on above: Performed By: #### C BC #### [facility] [address] [id number] Rashmi Jessica LYMPH # 1.7 103/ul Normal 1.2-3.8 [facility] Comment on above: Performed By: #### C BC #### [facility] [address] [place] [address] Rashmi Jessica Lymphocytes/100 WBC (Bld) 11.4 % Critically low 20.5-60.0 [facility] Comment on above: Performed By: #### C BC #### [facility] [address] [place], [place] [address] Rashmi Jessica MANUAL DIFF REQ NO Normal [facility] Comment on above: Performed By: #### C BC #### [facility] [address] [place], [place] [address] Rashmi Jessica MCH (RBC) [Entitic mass] 27.6 pg Normal 26.7-34.0 [facility] Comment on above: Performed By: #### C BC #### [facility] [address] [place] [address] Rashmi Jessica MCHC (RBC) [Mass/Vol] 33.4 g/dL Normal 29.9-35.2 [facility] Comment on above: Performed By: #### C BC #### [facility] [address] [place], [place] [address] Rashmi Jessica MCV (RBC) [Entitic vol] 82.5 fL Normal 81.0-99.0 [facility] Comment on above: Performed By: #### C BC #### [facility] [address] [place] [address] Rashmi Lopez MONO # 1.5 103/ul Critically high 0.3-0.8 [facility] Comment on above: Performed By: #### C BC #### [facility] [address] [id number] Rashmi Lopez Monocytes/100 WBC (Bld) 10.2 % Normal 1.7-12.0 [facility] Comment on above: Performed By: #### C BC #### [facility] [address] [id number] Rashmi Lopez NEUT # 11.5 103/ul Critically high 1.4-6.5 [facility] Comment on above: Performed By: #### C BC #### [facility] [address] [place] [address] Rashmi Lopez Neutrophils/100 WBC (Bld) 76.5 % Critically high 43.0-75.0 [facility] Comment on above: Performed By: #### C BC #### [facility] [address] [place] [address] Rashmi Lopez Platelet mean volume (Bld) [Entitic vol] 10.0 fL Normal 9.5-13.5 [facility] Comment on above: Performed By: #### C BC #### [facility] [address] [place], [place] [address] Rashmi Lopez PLT 365 103/ul Normal 150-450 [facility] Comment on above: Performed By: #### C BC #### [facility] [address] [place], [place] [address] Rashmi Casillasen RBC 4.06 106/ul Critically low 4.20-5.40 [facility] Comment on above: Performed By: #### C BC #### [facility] [address] [place], [place] [address] Rashmi Jessica WBC 15.1 103/ul Critically high 4.0-11.0 [facility] Comment on above: Performed By: #### C BC #### [facility] [address] [place], [place] [address] Rashmi Lopez DRUG SCREEN RAPID (URINE)on 07-14-2021 AMP Negative Normal NEGATIVE [facility] Comment on above: Performed By: #### C BC #### [facility] [address] [place] [address] Rashmi Jessica BAR Negative Normal NEGATIVE [facility] Comment on above: Performed By: #### C BC #### [facility] [address] [place] [address] Rashmi Jessica BUP Negative Normal NEGATIVE [facility] Comment on above: Performed By: #### C BC #### [facility] [address] [place] [address] Rashmi Jessica BZO Negative Normal NEGATIVE [facility] Comment on above: Performed By: #### C BC #### [facility] [address] [place] [address] Rashmi Jessica NOHEMI Negative Normal NEGATIVE [facility] Comment on above: Performed By: #### C BC #### [facility] [address] [place] [address] CUT-OFFS SEE BELOW Normal [facility] Comment on above: Result Comment: AMP (Amphetamine): 500ng/mL, BAR (Barbituates): 200 ng/mL, BZO (Benzodiazepines): 150 ng/mL, BUP (Buprenorphine): 10 ng/mL, NOHEMI (Cocaine): 150 ng/mL, mAMP (Methamphetamine): 500 ng/mL, MTD (Methadone): 200 ng/mL, OPI (Opiates): 100 ng/mL, OXY (Oxycodone): 100 ng/mL, PCP (Phencyclidine): 25 ng/mL, PPX (Propoxyphene): 300 ng/mL, THC (Cannabinoids): 50 ng/mL, TCA (Trycyclic Antidepressants): 300 ng/mL Performed By: #### C BC #### [facility] [address] [place] [address] DRUG CUT HEADER DRUG CLASS TEST SYSTEM CUT-OFF CONCENTRATIONS ARE FOLLOWS: Normal [facility] Comment on above: Performed By: #### C BC #### [facility] [address] [place] [address] Rashmi Jessica mAMP Negative Normal NEGATIVE [facility] Comment on above: Performed By: #### C BC #### [facility] [address] [address] Rashmi Jessica MTD Negative Normal NEGATIVE [facility] Comment on above: Performed By: #### C BC #### [facility] [address] [address] Rashmi Jessica OPI Negative Normal NEGATIVE [facility] Comment on above: Performed By: #### C BC #### [facility] [address] [address] Rashmi Jessica OXY Negative Normal NEGATIVE [facility] Comment on above: Performed By: #### C BC #### [facility] [address] [place] [address] Rashmi Jessica PCP Negative Normal NEGATIVE [facility] Comment on above: Performed By: #### C BC #### [facility] [address] [place] [address] Rashmi Jessica PPX Negative Normal NEGATIVE [facility] Comment on above: Performed By: #### C BC #### [facility] [address] [place] [address] Rashmi Jessica TCA Negative Normal NEGATIVE [facility] Comment on above: Performed By: #### C BC #### [facility] [address] [place] [address] Rashmi Jessica THC Negative Normal NEGATIVE [facility] Comment on above: Performed By: #### C BC #### [facility] [address] [place] [address] Rashmi Jessica TYPE AND SCREENon 07-14-2021 TYPE AND SCREEN Negative Normal [facility] Comment on above: Performed By: #### B ILEACD #### [facility] [address] [place] [address] Rashmi Jessica US PREG BIOPHY W NON [...] placenta with numerous calcifications. Electronically authenticated by: JEREMAIS REN Date: 2021-07-12 10:53 Normal [facility] US PREG BIOPHY W NON STRESSo [...] JEREMIAS REN Date: 2021-07-05 10:36 Normal [facility] GROUP B STREP CULTUREon 06-14 S. [...] F Tetracycline >=16 R F Normal [facility] Comment on above: Performed By: #### L ACT #### [facility] [address] [place] [address] Dr. Tony Cisneros Family Medicine Office/Clini c [...] unspecified) Ordered: Office Visit Level 3 Est 96163 Follow-up No qualifying data available Problem List/Past [...] Family History Family history is negative Normal [facility] Comment on above: Result Comment: Elec tronically Signed By: Abdirahman SAEZ DO\.br\Date and Time Signed: 06/30/21 21:05 EDT Ambulatory Clinical Summaryo n 06-29-2021 Ambulatory Clinical Summary {[id number] Normal [facility] US PREG BIOPHY W NON STRESSo n [...] JEREMIAS REN Date: 2021-06-28 10:51 Normal [facility] US PREG BIOPHY W NON STRESSo [...] JEREMIAS REN Date: 2021-06-21 09:57 Normal [facility] CULTURE URINEon 06-19-2021 CULTURE URINE Culture Observations : HEAVY GROWTH OF MIXED GENITAL REMBERTO. NO POTENTIAL PATHOGENS SEEN. Normal [facility] Comment on above: Performed By: #### B ILEACD #### [facility] [address] [place] [address] Rashmi Lopez UA (CLEAN/CATCH) MICROSCOPIC IF INDICATEon 06-19-2021 Bilirubin Ql (U) Negative Normal NEGATIVE [facility] Comment on above: Performed By: #### L ACT #### [facility] [address] [address] [address] Tony Cisneros Clarity (U) CLEAR Normal CLEAR [facility] Comment on above: Performed By: #### L ACT #### [facility] [address] [address] [address] Tony Cisneros Color (U) LT. YELLOW Normal YELLOW [facility] Comment on above: Performed By: #### L ACT #### [facility] [address] [address] [address] Tony Cisneros Glucose Ql (U) Negative Normal NEGATIVE [facility] Comment on above: Performed By: #### L ACT #### [facility] [address] [address] [address] Tony Cisneros Hemoglobin Ql (U) Negative Normal NEGATIVE [facility] Comment on above: Performed By: #### L ACT #### [facility] [address] [place] [address] Dr. Tony Cisneros Ketones Ql (U) Negative Normal NEGATIVE [facility] Comment on above: Performed By: #### L ACT #### [facility] [address] [place] [address] Dr. Tony Cisnerso LEUKOCYTES SMALL Abnormal NEGATIVE [facility] Comment on above: Performed By: #### L ACT #### [facility] [address] [place] [address] Dr. Tony Cisneros Nitrite Ql (U) Negative Normal NEGATIVE [facility] Comment on above: Performed By: #### L ACT #### [facility] [address] [place] [address] Dr. Tony Cisneros pH (U) 7.0 [pH] Normal 5-9 [facility] Comment on above: Performed By: #### L ACT #### [facility] [address] [place] [address] Dr. Tony Cisneros SPEC GRAVITY 1.010 Normal 1.005-<=1.025 [facility] Comment on above: Performed By: #### L ACT #### [facility] [address] [place] [address] Dr. Tony Cisneros UA PROTEIN Negative Normal NEGATIVE/ TRACE [facility] Comment on above: Performed By: #### L ACT #### [facility] [address] [place] [address] Dr. Tony Cisneros UR MICRO IND INDICATED Normal [facility] Comment on above: Performed By: #### L ACT #### [facility] [address] [place] [address] Dr. Tony Cisneros Urobilinogen Qn (U) 0.2 {Saw'U}/dL Normal 0.2 - 1. 0 [facility] Comment on above: Performed By: #### L ACT #### [facility] [address] [place] [address] Dr. Tony Cisneros URINE MICROSCOPIC ONLYon BACTERIA SMALL Abnormal NONE SEEN [facility] Comment on above: Performed By: #### L ACT #### [facility] [address] [place] [address] Dr. Tony Cisneros Bacteria identified Cx Nom (U) INDICATED Normal [facility] Comment on above: Performed By: #### L ACT #### [facility] [address] [place] [address] Dr. Tony Cisneros CAST NONE SEEN Normal NONE SEEN [facility] Comment on above: Performed By: #### L ACT #### [facility] [address] [place] [address] Dr. Tony Cisneros Crystals LM Nom (Urine sed) NONE SEEN Normal NONE SEEN [facility] Comment on above: Performed By: #### L ACT #### [facility] [address] [place] [address] Dr. Tony Cisneros Epithelial cells LM Ql (Urine sed) FEW Abnormal NONE SEEN /RARE [facility] Comment on above: Performed By: #### L ACT #### [facility] [address] [place] [address] Dr. Tony Cisneros MUCOUS NONE SEEN Normal NONE SEEN [facility] Comment on above: Performed By: #### L ACT #### [facility] [address] [place] [address] Dr. Tony Cisneros RBC NONE SEEN Abnormal 0-2 [facility] Comment on above: Performed By: #### L ACT #### [facility] [address] [place] [address] Dr. Tony Cisneros WBC 0-2 Abnormal NONE SEEN [facility] Comment on above: Performed By: #### L ACT #### [facility] [address] [place] [address] Dr. Tony Cisneros US PREG BIOPHY W [...] JEREMIAS REN Date: 2021-06-14 11:10 Normal [facility] US PREG GROWTHon 06-14-2021 US PREG [...] by: JEREMIAS REN Date: 2021-06-14 11:30 Normal [facility] BILE ACIDS TOTALon Bile Acids 6.7 umol/L Normal 0.0-10.0 [facility] Comment on above: Performed By: #### B ILEACD #### [facility] [address] [place] [address] Rashmiadele Casillasen Carmenn 06-07-2021 AST [Catalytic activity/Vol] 16 U/L Normal 14-36 [facility] Comment on above: Performed By: #### A LT, AST #### [facility] [address] [address] Rashmiadele Casillasen SGPTon 06-07-2021 ALT [Catalytic activity/Vol] 17 U/L Normal 9-52 [facility] Comment on above: Performed By: #### A LT, AST #### [facility] [address] [place] [address] Rashmi Lopez US PREG BIOPHY W NON [...] by: JEREMIAS REN Date: 2021-06-07 10:14 Normal [facility] Encounters Encounter Date Encounter Type Care Provider Facility Start: 02-01-2024 End: 02-01-2024 ambulatory GONZALEZ CHANELL Not Available Start: 01-11-2024 End: 01-11-2024 ambulatory GONZALEZ CHANELL Not Available Start: 12-25-2023 End: 12-25-2023 ambulatory GONZALEZ CHANELL Not Available Start: 11-27-2023 End: 11-27-2023 ambulatory GONZALEZ CHANELL Not Available Start: 10-20-2023 End: 10-20-2023 ambulatory GONZALEZ CHANELL Not Available Start: 06-01-2022 End: 06-01-2022 ambulatory [...] [place] Payers Date Payer Category Payer Medicaid [id number] 2021 Unknown [id number] 1998 Unknown [id number] .16.84 [id number] 1998 Unknown [id number] 16.84 0.1.179899.3.579.2.593 1998 Unknown [id number] .16.84 0.1.354597.3.579.2.593 1998 Unknown [id number] 2.16.84 0.1.605793.3.579.2.593 1998 Unknown [id number] 2.16.84 0.1.038099.3.579.2.593 1998 Unknown [id number] 2.16.84 0.1.268969.3.579.2.593 1998 Unknown [id number] 2.16.84 0.1.885938.3.579.2.593 1998 Unknown [id number] 2.16.84 0.1.974544.3.579.2.593 1998 Unknown [id number] 2.16.84 0.1.250589.3.579.2.593 1998 Unknown [id number] 2.16.84 0.1.685760.3.579.2.593 1998 Unknown [id number] 2.16.84 0.1.785353.3.579.2.593 1998 Unknown [id number] 2.16.84 0.1.650453.3.579.2.593 1998 Unknown [id number] 2.16.84 0.1.299709.3.579.2.593 1998 Unknown [id number] 2.16.84 0.1.061977.3.579.2.593 1998 Unknown [id number] 2.16.84 0.1.698886.3.579.2.593 1998 Unknown [id number] 2.16.84 0.1.679726.3.579.2.593 1998 Unknown [id number] 2.16.84 0.1.183607.3.579.2.593 1998 Unknown [id number] 2.16.84 0.1.396959.3.579.2.1259 1998 Unknown [id number] 2.16.84 0.1.880323.3.579.2.1259 1998 Unknown [id number] 2.16.84 0.1.404876.3.579.2.1259 1998 Unknown [id number] 2.16.84 0.1.270922.3.579.2.1259 1998 Unknown [id number] 2.16.840 .1.865964.3.579.2.1259 1959 Private Health Insurance [id number] Self-pay [id number] Discharge summary note 07-14-2021 Note Date & [...] Tylenol, any abdominal pain unrelieved with narcotics. [facility] Signed and Approved by: DR GONZALEZ LUA . 07/30/2021 09:40:00 [facility] Signed and Approved by: DR GONZALEZ LUA . 07/30/2021 09:40:00 [facility] Clinical Note 07-14-2021 Note Date & Type Note Facility 07-14-2021 Note OPERATIVE NOTE OPERATION DATE: 07-16-21 ANESTHETIC:Epidural. SUPERVISOR PYROTECHNIC LOADING:KALLIE Aguayo PREOPERATIVE DIAGNOSIS: 1. Intrauterine uterine at 39 weeks. 2. History of Ominous order psoriasis. 3. Maternal intolerance to labor, requesting Caesarean section. 4. Failure to induce. POSTOPERATIVE DIAGNOSIS:Same as above. PROCEDURE NAME:Primary low transverse Caesarean section. URINE OUTPUT:Yellow and clear. FINDINGS: Viable , weight and Apgars unknown at this time. [...] and cut. Cord blood was obtained. The infant was handed off to awaiting team. The [...] to the Recovery Room in stable condition. [facility] Signed and Approved by: DR GONZALEZ LUA . 08/03/2021 19:36:00 [facility] Summary Purpose Family History No Family History Records FoundNo Family History Records FoundNo Family History Records Found Advance Directives No Advanced Directives Records FoundNo Advanced Directives Records FoundNo Advanced Directives Records Found Additional Source Comments INFORMATION SOURCE (unrecogn ized section and content) DATE CREATED AUTHOR 06/03/2022 [facility] DATE CREATED AUTHOR AUTHOR'S ORGANIZ ATION 06/04/2022 Petros Arcos [facility] DATE CREATED AUTHOR AUTHOR'S ORGANIZ ATION 02/02/2024 [facility] FOR RECORDS PERTAINING TO PATIENTS WHO [...] BE BASED ON THE PRIMARY CLINICAL RECORDS. [facility]. provides no warranty or guarantee of the accuracy or completeness of information in this document.
[2024-02-04 23:01] VITALS: BP 120/72; PULSE 103; RESP 16; TEMP 36.4
[2024-02-04 23:17] LABS: Bilirubin Urine NEGATIVE (NEGATIVE); Blood Urine LARGE (NEGATIVE); Clarity Urine CLEAR (CLEAR); Color Urine LT. YELLOW (YELLOW); Glucose Urine UA NEGATIVE (NEGATIVE); Ketones Urine NEGATIVE (NEGATIVE); Leukocyte Esterase Urine TRACE (NEGATIVE); Nitrite Urine NEGATIVE (NEGATIVE); Protein Urine NEGATIVE (NEG/TRACE); Urobilinogen Urine 0.2 EU/dL (0.2-1.0); pH Urine 7.5 (5.0-9.0)
[2024-02-04 23:20] LABS: Urine Microscopic Indicated YES
[2024-02-04 23:24] LABS: Bacteria Urine NONE SEEN #/HPF (NONE SEEN); Mucus Urine NONE SEEN (NONE SEEN); RBC Urine NONE SEEN #/HPF (0-2); Squamous Epithelial Cell Urine RARE #/LPF (NONE/RARE); WBC Urine 0-2 #/HPF (NONE SEEN)
[2024-02-04 23:25] LABS: Cast Seen? NONE SEEN #/LPF (NONE SEEN); Crystals Seen? None Seen #/HPF (None Seen); Urine Culture Indicated NO
[2024-02-05 08:07] VITALS: BP 118/64; PULSE 93
--- NOTE | 2024-02-05 08:32 | US_ITS ---
[address] [address] Patient Name: BARON MORA MRN: [id number] date: 2000 Sex: F Assigned Patient Location: [facility] Current Patient Location: [facility] Accession/Order Number: [id number] Exam Date: 02/05/2024 09:00 Report Date: 02/05/2024 09:58 At the request of: GONZALEZ LUA Procedure: US OB placenta EXAM: US OB placenta HISTORY: Bleeding with complete previa COMPARISON: 12/23/2023 TECHNIQUE: Grayscale and color ultrasound FINDINGS: position: Cephalic presentation, longitudinal lie Placenta: Grade 0. Anterior. The placental edge is 2.5 cm from the internal os. Heart rate: 137 beats per minute US/US OB placenta IMPRESSION: Low lying placenta, the placental edge is 2.5 cm from the internal os. Electronically authenticated by: MERRILL CROSS Date: 02/05/2024 09:58
[2024-02-05 17:24] VITALS: RESP 16; TEMP 37.1
[2024-02-05 17:27] VITALS: BP 117/62; PULSE 96
[2024-02-05 20:21] VITALS: BP 108/57; PULSE 93
[2024-02-06 01:01] VITALS: TEMP 35.9
[2024-02-06 01:02] VITALS: BP 106/58; PULSE 89
--- NOTE | 2024-02-06 08:33 | PM.OBPN ---
OB - PN: Subj Subjective Patient comments: no complaints Exam Constitutional Vital Signs, click to edit/add: Last Vital Signs Temp 96.6 F L 02/06/24 01:01 Pulse 89 02/06/24 01:02 Resp 16 02/05/24 17:24 BP 106/58 02/06/24 01:02 Common normals: no apparent distress and oriented x3 Orientation/consciousness: Yes awake, Yes oriented to person, Yes oriented to place and Yes oriented to time HENMT Common normals: normocephalic Eye Common normals: EOMs intact bilaterally Neck & C-Spine Common normals: full ROM Lymph Lymphatic: no lymphadenopathy noted Respiratory Common normals: normal respiratory effort Cardio Common normals: regular rate and regular rhythm Rate: regular rate Rhythm: regular rhythm GI Inspection: normal to inspection Common normals: no CVA tenderness Back & Pelvis General back: CVA tenderness Extremity Common normals: full ROM Neuro Common normals: oriented x3 Psych Common normals: mental status grossly normal OB - PN: A/P Time Spent with Patient Time: Total time spent is greater than 50% in coordination of care (as documented) at patient's floor/unit and/or counseling patient: Total time spent with greater than 50% in coordination of care (as documented) at patient's floor/unit and/or counseling patient: less than 15 minutes
--- NOTE | 2024-02-06 08:42 | PM.OBPN ---
OB - PN: Subj Subjective Patient comments: no complaints Narrative: 23 yo at 25 4/7wks denies vaginal bleeding since yesterday, khb was neg, us shows partial previa 2.5cm from cervical os, pt has ho complete previa prior seen by mfm Exam Constitutional Vital Signs, click to edit/add: Last Vital Signs Temp 96.6 F L 02/06/24 01:01 Pulse 89 02/06/24 01:02 Resp 16 02/05/24 17:24 BP 106/58 02/06/24 01:02 Documenting provider has reviewed patient's vital signs: yes Common normals: no apparent distress Respiratory Common normals: clear to auscultation bilaterally Cardio Common normals: regular rate and regular rhythm GI Common normals: Normal to inspection, nondistended, normoactive bowel sounds present Extremity Common normals: no calf tenderness OB - PN: A/P Assessment and Plan (1) Partial previa: Plan 2nd trimester vaginal bleeding-labs reviewed, us reviewed, bleeding has resolved, dc home precautions given, fu 1wk Time Spent with Patient Time: Total time spent is greater than 50% in coordination of care (as documented) at patient's floor/unit and/or counseling patient: Total time spent with greater than 50% in coordination of care (as documented) at patient's floor/unit and/or counseling patient: less than 15 minutes
[2024-02-06 10:07] VITALS: BP 101/59; PULSE 103
[2024-02-06 10:55] VITALS: RESP 16; TEMP 36.8
== END 2024-02-06 10:57 | disposition home or self-care (01) ==
PROVIDERS: Obstetrics & Gynecology; Admitting Provider Obstetrics & Gynecology; PCP Family Medicine; Visit Provider Obstetrics & Gynecology
DX: O44.32 Partial placenta previa with hemorrhage, second trimester (principal); Z3A.25 25 weeks gestation of pregnancy
CPT/HCPCS: 36415; 76815; 81001; 85460; G0378; G0379

== ENCOUNTER 2025-05-20 08:31 | Outpatient (OUT) | payer MEDICAID, SELFPAY ==
--- OUTSIDE RECORDS SUMMARY | 2024-10-23 06:20 | XMS_ITS ---
Author Organization [facility] Address [address] [place] [address] Care Team Providers Care Water Sponger Name Role Phone Roberta Nair Primary Care Provider REASON FOR VISIT FILLING Encounters Encounter Location Date Provider Diagnosis [address] [place] [address] 10/23/2024 Roberta Nair Plan Of Treatment No Information Progress Notes * BARON MORA EDOB: [birth year] (24 yo F)Acc No.[id number]:10/23/2024 Patient: BARON WALSH Provider: Calos Nair DDS :2000 A ge:23 Y S ex:Female Date:10/23/2024 Address:[address] [place], [place] [id number] Subjective: * Chief Complaints: * 1 . FILLING. * Medical History: Objective: * Vitals: Assessment: Plan: * Treatment: * Images: * Electronic signature of Olena Nair DDS on 05/20/2025 at 08:36 AM EDT Sign off status: Pending * Provider: Calos Nair DDS Date: 1 12/24/2023 Generated for Ortegai ng/Fatoñito/eTransmitting on: 0 05/20/2025 08:36 AM EDT
--- OUTSIDE RECORDS SUMMARY | 2024-10-25 09:30 | XMS_ITS ---
Author Organization [facility] Address [address] [place] [address] Care Team Providers Care Glost Tile Shader Name Role Phone Roberta Nair Primary Care Provider [phone] Otilia Fischer [phone] REASON FOR VISIT PROPHY Encounters Encounter Location Date Provider Diagnosis [address] [place] [address] [place] [address] 10/25/2024 Otilia Mcgowan Plan Of Treatment No Information Progress Notes * BARON MORA EDOB: [birth year] (24 yo F)Acc No.[id number]:10/25/2024 Patient: BARON WALSH Provider: Marnie Mcgowan :2000 A ge:23 Y S ex:Female Date:10/25/2024 Address:[address] [place], [place] [phone] Pcp:Roberta Nair Subjective: * Chief Complaints: * 1 . PROPHY. * Medical History: Objective: * Vitals: Assessment: Plan: * Treatment: * Images: * Electronic signature of Yenny Mcgowan on 05/20/2025 at 08:36 AM EDT Sign off status: Pending * Provider: Marnie Mcgowan Date: 1 12/26/2023 Generated for Printi ng/Faxing/eTransmitting on: 0 05/20/2025 08:36 AM EDT
--- OUTSIDE RECORDS SUMMARY | 2024-11-11 12:36 | XMS_ITS ---
Author Name Auto Generated Organization [facility] Care Team Providers Care Art Critic Name Role Phone MUSTAPHA MURPHY Referring Unavailable MUSTAPHA MURPHY Primary Care Unavailable PROBLEMS No Problem Records Found PROCEDURES No Procedure Records Found RESULTS CULTURE, URINE Collected: 10:50 AM Status: F Source: [facility] Order Comment: [place] - Source o f Urine Collection? Urine clean catch\[id number]\Performed by [facility] [address] [place] [address] [place] - Source of Urine Collection? Urine clean catch [place] - Current Antibiotic Therapy? No Answer Given TYPE CODE TESTS RESULT OUT OF RANGE REFERENCE UNITS LAB Organism 01(LOINC) [place] - Organism 01 Escherichia coli Abnormal LAB SOURCE(LOINC) [place] - SOURCE urine, clean catch LAB CUR 01(LOINC) [place] - URINE CULTURE [place] count: >100,000 CFU/mL Performed By: #### CUR #### [facility] See Report ALLERGIES No Allergies Records Found ENCOUNTERS ADMIT/DISCHARGE ACCOUNT NUMBER ADMITTING ENCOUNTER CLASS LOC ATION SOURCE 11/11/2024 [id number] Ambulatory Building:[facility] PAYERS ENCOUNTER GUARANTOR PAYER SUBSCRIBER SOURCE 11/11/2024 BARON MORENOB: [id number] [address] [facility] [address], [place] [address]Oqd: (HP) Primary Insurance:[place]: [id number] kayli Date:[id number] [address]ZJ: BARON MORENOB: [id number] [address] [facility] [address]Bia: (HP) [facility]
--- OUTSIDE RECORDS SUMMARY | 2025-05-19 14:30 | XMS_ITS | Encounter Summary ---
Author Organization [facility] Address [address] [place] [address] Care Team Providers Care Electric Cutter Operator Name Role Phone Keny De La Fuente APRN - CANDY WAFFLE ASSEMBLER Primary Care Provide r Reason for Visit * Reason Comments Skin Problem Psoriasis- worse wit h and steroids.. wanting to do lab work Encounter Details Date Type Department Care Team (Late st Contact Info) Description 05/19/2025 2:30 PM EDT Office Visit [facility] MED Primary Care [address] [place] [address] Keny De La Fuente APRN - CNP [address] [place] [address]. [place] [address] Plaque psoriasis (Primary Dx) Social History Tobacco Use Types Packs/Day Years Used Date Smoking Tobacco: Never Smokeless Tobacco: Never Alcohol Use Standard Drinks/Week Comments Never 0 (1 standard drink = 0.6 oz pur e alcohol) [facility] Utilities Answer Date Recorded In the past 12 months has e electric, gas, oil, or water company threatened to shut off services in your home? No 03/25/2024 Overall Financial Resource Strain (CARDIA) Answe r Date Recorded How hard is it for you to pa y for the very basics like food, housing, medical care, and heating? Not very hard 06/02/2024 PHQ-2 Answer Date Recorded PHQ-9 Total Score 0 06/02/2024 Hunger Vital Sign Answer Date Recorded Within the past 12 months, y ou worried that your food would run out before you got the money to buy more. Never true 06/02/20 24 Within the past 12 months, t he food you bought just didn't last and you didn't have money to get more. Never true 06/02/2024 PRAPARE - Transportation Answer Date Re corded Lack of Transportation (Medical) Not on file 06/02/2024 In the past 12 months, has l ack of transportation kept you from meetings, work, or from getting things needed for daily living? No 06/02/2024 Housing Stability Vital Sign Answer Kevin e Recorded In the last 12 months, was t here a time when you were not able to pay the mortgage or rent on time? No 06/02/2024 In the last 12 months, how many places have you lived? 1 06/02/2024 In the last 12 months, was t here a time when you did not have a steady place to sleep or slept in a alf (including now)? No 06/02/2024 Sandstone Depression Scale Answer Date Recorded Last EPDS Total Score Not on file 04/21/2024 The thought of harming myself has occurred to me . Never 04/21/2024 Food Insecurity Answer Date Recorded Within the past 12 months, y ou worried that your food would run out before you got the money to buy more. 1 06/02/2024 Within the past 12 months, t he food you bought just didn't last and you didn't have money to get more. 1 06/02/2024 Interpersonal Safety Domain Source: IP Abuse Scr eening Answer Date Recorded Physical abuse Denies 04/19/2024 Verbal abuse Denies 04/19/2024 Emotional abuse Denies 04/19/2024 Financial abuse Denies 04/19/2024 Sexual abuse Denies 04/19/2024 Comments No Sex and Gender Information Value Date Recorded Sex Assigned at Female 01/15/2025 12:08 PM EST Legal Sex Female 7:02 PM EST Gender Identity Not on file Sexual Orientation Not on file documented as of this encounter Last Filed Vital Signs Vital Sign Reading Time Taken Comments Blood Pressure 132/81 05/19/2025 2:39 PM EDT Pulse 83 05/19/2025 2:39 PM EDT Temperature 36.7 C (98.1 F) 05/19/2025 2:39 PM EDT Respiratory Rate 18 05/19/2025 2:39 PM EDT Oxygen Saturation 93% 05/19/2025 2:39 PM EDT Inhaled Oxygen Concentration - - Weight 103.4 kg (228 lb) 05/19/2025 2:39 PM EDT Height 165.1 cm (5' 5 ) 05/19/2025 2:39 PM EDT Body Mass Index 37.94 05/19/2025 2:39 PM EDT documented in this encounter Patient Instructions * Patient Instructions* Keny De La Fuente APRN - CNP - 05/19/2025 3:04 PM EDT The medication list included in this document is our record of what you are currently taking, including any changes that were made at today's visit. If you find any differences when compared to your medications at home, or have any questions that were not answered at your visit, please contact the office. documented in this encounter Progress Notes * Keny De La Fuente APRN - CNP - 05/19/2025 2:48 PM EDT Images from the original note were not included. 05/19/2025 Lashonda Tran (: 2000) is a 24 y.o. female, here for evaluation of the following medical concerns: Chief Complaint Patient presents with Skin Problem Psoriasis- worse with and steroids.. wanting to do lab work HPI Lashonda was diagnosed with psoriasis 10-11 years ago. Plaques have improved slightly at intervals.She has tried avoiding gluten, sugar and eaten vegan without impact on her lesions. Steroids do notsignificantly improve symptoms. Today she is requesting lab orders as plaques have improved. Review of Systems Constitutional: Negative. Negative for chills, fatigue, fever and unexpected weight change. HENT: Negative. Negative for dental problem, ear pain, postnasal drip and sore throat. Eyes: Negative. Negative for visual disturbance. Respiratory: Negative. Negative for cough, shortness of breath and wheezing. Cardiovascular: Negative. Negative for chest pain, palpitations and leg swelling. Gastrointestinal: Negative. Negative for abdominal pain, blood in stool, constipation, diarrhea, nausea and vomiting. Endocrine: Negative. Genitourinary: Negative. Negative for dysuria, frequency, hematuria and urgency. Musculoskeletal: Negative. Negative for arthralgias, back pain and myalgias. Skin: Positive for rash. Plaques generalized except tops of feet. Allergic/Immunologic: Negative. Neurological: Positive for headaches. Negative for dizziness, weakness and numbness. Hematological: Negative. Psychiatric/Behavioral: Negative. Negative for decreased concentration and suicidal ideas. The patient is not nervous/anxious. Prior to Visit Medications Medication Sig Taking? Authorizing Provider Vit-Fe Fumarate-FA ( VITAMIN PO) Take 1 tablet by mouth daily Yes Provider, MD Leatha Social History Tobacco Use Smoking status: Never Smokeless tobacco: Never Substance Use Topics Alcohol use: Never Vitals: 05/19/25 1439 BP: 132/81 BP Site: Left Upper Arm Patient Position: Sitting BP Cuff Size: Large Adult Pulse: 83 Resp: 18 Temp: 98.1 ??F (36.7 ??C) TempSrc: Temporal SpO2: 93% Weight: 103.4 kg (228 lb) Height: 1.651 m (5' 5 ) Estimated body mass index is 37.94 kg/m?? as calculated from the following: Height as of this encounter: 1.651 m (5' 5 ). Weight as of this encounter: 103.4 kg (228 lb). Physical Exam Vitals reviewed. Constitutional: Appearance: Normal appearance. She is well-developed. She is obese. She is not ill-appearing. HENT: Head: Normocephalic and atraumatic. Nose: Nose normal. Eyes: Extraocular Movements: Extraocular movements intact. Cardiovascular: Rate and Rhythm: Normal rate and regular rhythm. Heart sounds: Normal heart sounds. Pulmonary: Effort: Pulmonary effort is normal. Breath sounds: Normal breath sounds. Abdominal: Palpations: Abdomen is soft. Tenderness: There is no abdominal tenderness. Musculoskeletal: General: No swelling. Normal range of motion. Cervical back: Normal range of motion and neck supple. Right lower leg: No edema. Left lower leg: No edema. Skin: General: Skin is warm and dry. Comments: Raised red plaques on both arms and bilateral legs (thigh and BTK), scalp, forehead and torso Neurological: General: No focal deficit present. Mental Status: She is alert and oriented to person, place, and time. Mental status is at baseline. Psychiatric: Attention and Perception: Attention and perception normal. She does not perceive auditory or visualhallucinations. Mood and Affect: Mood and affect normal. Speech: Speech normal. Behavior: Behavior is cooperative. Thought Content: Thought content normal. Cognition and Memory: Cognition and memory normal. Judgment: Judgment normal. ASSESSMENT/PLAN: 1. Plaque psoriasis Lashonda declines referral to dermatology (she does not want to take biologics) Biopsy discussed - Vitamin D 25 Hydroxy; Future - Vitamin B12; Future - Vitamin B6; Future - CBC with Auto Differential; Future - Comprehensive Metabolic Panel; Future Return if symptoms worsen or fail to improve. An electronic signature was used to authenticate this note. --FRANCESCA GUILLEN CNP on 05/19/2025 at 4:25 PM documented in this encounter Plan of Treatment Scheduled Orders Name Type Priority Associated Diagnoses Orde r Schedule Vitamin D 25 Hydroxy Lab Routine Plaque psoriasis Expected: 05/19/2025, Expires: 05/19/2026 Vitamin B12 Lab Routine Plaque psoriasis Expected: 05/19/2025, Expires: 05/19/2026 Vitamin B6 Lab Routine Plaque psoriasis Expected: 05/19/2025, Expires: 05/19/2026 CBC with Auto Differential Lab Routine Plaque psoriasis Expected: 05/19/2025, Expires: 11/19/2025 Comprehensive Metabolic Panel Lab Routine Plaque psoriasis Expected: 05/19/2025, Expires: 11/19/2025 documented as of this encounter Visit Diagnoses Diagnosis Plaque psoriasis- Primary Other psoriasis documented in this encounter Care Teams Electric Cutter Operator Relationship Specialty Start Date End Date Keny De La Fuente APRN - CNP [address] [place] [address] PCP - General Nurse Practitioner 01/10/25 documented as of this encounter
--- OUTSIDE RECORDS SUMMARY | 2025-05-20 08:36 | XMS_ITS | Encounter Summary ---
Author Organization [facility] Address [address] [place] [address] Care Team Providers Care Assistant Director Name Role Phone Unavailable Primary Care Provider Unavailabl e Encounter Details Date Type Department Care Team (Late st Contact Info) Description 03/07/2024 Abstract [facility] OB [address] [place] [id number] Bouchra Marrero LPN [address] [place] [id number] Social History Tobacco Use Types Packs/Day Years Used Date Smoking Tobacco: Never Assessed Comments Yes Sex and Gender Information Value Date Recorded Sex Assigned at Not on file Legal Sex Female 11:47 PM EDT Gender Identity Not on file Sexual Orientation Not on file documented as of this encounter Plan of Treatment Not on file documented as of this encounter Goals Goal Patient Goal Type Associated Problems Recent Progress Patient-Stated? Author Reminders Care Plan OB Reminders No Open Scheduling, Background documented as of this encounter Visit Diagnoses Not on filedocumented in this encounter Additional Health Concerns Active Problems Noted Date Diagnosed Date OB Reminders 11/27/2023 documented as of this encounter
--- OUTSIDE RECORDS SUMMARY | 2025-05-20 08:36 | XMS_ITS | Encounter Summary ---
Author Organization [facility] Address [address] [place] [address] Care Team Providers Care Airplane Patrol Pilot Name Role Phone Unavailable Primary Care Provider Unavailabl e Encounter Details Date Type Department Care Team (Late st Contact Info) Description 02/05/2024 Clinisync Result Encounter [facility] External Department Unsolicited Gonzalez Noble, DO [address] [place] [address] Social History Tobacco Use Types Packs/Day Years [...] Scheduling, Background documented as of this encounter Procedures Procedure Name Priority Date/Time Associated Diagnosis Comments US OB PLACENTA 02/05/2024 9:58 AM EDT documented in this encounter Results * US OB PLACENTA (02/05/2024 9:58 AM EDT) Anatomical Region Laterality Modality Other 02/05/2024 9:58 AM EDT Narrative 02/05/2024 10:01 AM EDT The [address] [address] Ultrasound Report Signed Patient: LASHONDA TRAN MR#: [id number] : 2000 Acct:[id number] Age/Sex: 23 / F ADM Date: Loc: [facility] Attending Dr: Ifeoma Fong M.D. Ordering Physician: Gonzalez Noble D.O. Date of Service: 02/05/24 Procedure(s): US OB placenta Accession Number(s): [id number] cc: Gonzalez Noble D.O.; JESSICA SAEZ [place] [id number] Patient Name: LASHONDA TRAN MRN: [id number] date: 2000 Sex: F Assigned Patient Location: [facility] Current Patient Location: [facility] Accession/Order Number: [id number] Exam Date: 02/05/2024 09:00 Report Date: 02/05/2024 09:58 At the request of: GONZALEZ NOBLE Procedure: US OB placenta EXAM: US OB placenta HISTORY: Bleeding with complete previa COMPARISON: 2023 TECHNIQUE: Grayscale and color ultrasound FINDINGS: position: Cephalic presentation, longitudinal lie Placenta: Grade 0. Anterior. The placental edge is 2.5 cm from the internal os. Heart rate: 137 beats per minute US/US OB placenta IMPRESSION: Low lying placenta, the placental edge is 2.5 cm from the internal os. Electronically authenticated by: MERRILL CROSS Date: 02/05/2024 09:58 Dictated By: Merrill Cross M.D. Signed By: 02/05/24 1001 DD/ 0958 TD/TT: Pants Cutter: Procedure Note Radiology, Radiologist, MD - 02/05/2024 [place] [address] Ultrasound Report Signed Patient: LASHONDA TRAN EMR#: [id number] : 2000Acct:[id number] Age/Sex: 23 / FADM Date: Loc: [facility] Attending Dr: Ifeoma Fong M.D. Ordering Physician: Gonzalez Noble D.O. Date of Service: 02/05/24 Procedure(s): US OB placenta Accession Number(s): [id number] cc: Gonzalez Noble D.O.; JESSICA SAEZ [address] [address] Patient Name: LASHONDA TRAN MRN: [id number] date: 2000 Sex: F Assigned Patient Location: [facility] Current Patient Location: [facility] Accession/Order Number: [id number] Exam Date: 02/05/2024 09:00 Report Date: 02/05/2024 09:58 At the request of: GONZALEZ NOBLE Procedure: US OB placenta EXAM: US OB placenta HISTORY: Bleeding with complete previa COMPARISON: 2023 TECHNIQUE: Grayscale and color ultrasound FINDINGS: position: Cephalic presentation, longitudinal lie Placenta: Grade 0. Anterior. The placental edge is 2.5 cm from theinternal os. Heart rate: 137 beats per minute US/US OB placenta IMPRESSION: Low lying placenta, the placental edge is 2.5 cm from the internal os. Electronically authenticated by: MERRILL CROSS Date: 02/05/2024 09:58 Dictated By: Merrill Cross M.D. Signed By:02/05/24 1001 DD/ 0958 TD/TT: Pants Cutter: Gonzalez Noble DO [facility] Final Result documented in this encounter Visit Diagnoses Not on filedocumented in this encounter Additional Health Concerns Active Problems Noted Date Diagnosed Date OB Reminders 11/27/2023 documented as of this encounter
--- OUTSIDE RECORDS SUMMARY | 2025-05-20 08:37 | XMS_ITS | Patient Health Record ---
Author Organization [facility] Address [address] [place] [address] Care Team Providers Care Commodity Director Name Role Phone Roberta Nair Primary Care Provider [phone] Otilia Mcgowan [phone] Reason For Referral No Information Encounters Encounter Location Date Provider Diagnosis [facility] [address] [place] [address] 09/04/2024 Roberta Nair [place] [address] [place] [address] 06/28/2024 Roberta Nair Dental caries on pit and fissure surface penetrating into dentin K02.52 ; Necrosis of pulp K04.1 ; Acute gingivitis, plaque induced K05.00 ; Other dental procedure status Z98.818 and Encounter for dental examination and cleaning with abnormal findings Z01.21 Assessments Encounter Date Diagnosis (ICD Code) Assessment Notes Treatment Notes Treatment Clinical Notes Section Notes 06/28/2024 Dental caries on pit and fissure surface penetrating into dentin (ICD-10 - K02.52) 06/28/2024 Necrosis of pulp (ICD-10 - K04.1) 06/28/2024 Acute gingivitis, plaque induced (ICD-10 - K05.00) 06/28/2024 Other dental procedure status (ICD-10 - Z98.818) 06/28/2024 Encounter for dental examination and cleaning with abnormal findings (ICD-10 - Z01.21) Plan Of Treatment No Information Insurance Providers Payer Name Payer Address Payer Phone Subscriber Number Group Number Insured Name Patient Relationship to Insured Coverage Start Date Coverage End Date Dental [employer] DQ [address] [address] [place] [address] [id number] BARON MORA Self - patient is the insured [address] [facility] [employer] [address] [place] [address] [id number] BARON MORA Self - patient is the insured 3
--- OUTSIDE RECORDS SUMMARY | 2025-05-20 08:37 | XMS_ITS | Encounter Summary ---
Author Organization [facility] Address [address] [place] [address] Care Team Providers Care Marine Equipment Test Engineer Name Role Phone Unavailable Primary Care Provider Unavailabl e Encounter Details Date Type Department Care Team (Late st Contact Info) Description 10/20/2023 Clinisync Result Encounter [facility] External Department Unsolicited Gonzalez Noble, DO [address] [place] [address] Social History Tobacco Use Types Packs/Day Years Used Date Smoking Tobacco: Never Assessed Comments Yes Sex and Gender Information Value Date Recorded Sex Assigned at Not on file Legal Sex Female 11:47 PM EDT Gender Identity Not on file Sexual Orientation Not on file COVID-19 Exposure Response Date Recorded In the last 10 days, have yo u been in contact with someone who was confirmed or suspected to have Coronavirus/COVID-19? No / Unsure 10/20/2023 7:51 AM EST documented as of this encounter Plan of Treatment Not on file documented as of this encounter Procedures Procedure Name Priority Date/Time Associated Diagnosis Comments US OB TRANSVAGINAL 10/20/2023 9: 16 AM EST documented in this encounter Results * US OB TRANSVAGINAL (10/20/2023 9:16 AM EST) Anatomical Region Laterality Modality Other 10/20/2023 9:16 AM EST Narrative 10/20/2023 9:18 AM EST The [address] [address] Ultrasound Report Signed Patient: LASHONDA TRAN MR#: [id number] : 2000 Acct:[id number] Age/Sex: 22 / F ADM Date: 10/20/23 Loc: US Attending Dr: Gonzalez Noble D.O. Ordering Physician: Gonzalez Noble D.O. Date of Service: 10/20/23 Procedure(s): US OB transvaginal Accession Number(s): [id number] cc: Gonzalez Noble D.O.; JESSICA SAEZ [place] [phone] Patient Name: LASHONDA TRAN MRN: [facility]:[id number] date: 2000 Sex: F Assigned Patient Location: US Current Patient Location: US Accession/Order Number: [id number] Exam Date: 10/20/2023 08:23 Report Date: 10/20/2023 09:16 At the request of: GONZALEZ NOBLE Procedure: US OB transvaginal EXAMINATION: US OB transvaginal HISTORY: MISSED MENSES COMPARISON: No relevant comparison available. FINDINGS: Flores intrauterine gestation Gestational sac: 5.2 cm, 11 weeks 0 days CRL: 3.8 cm, 10 weeks 5 days Yolk sac: 5.7 mm Heart rate: 1 64 bpm The uterus is normal, anteverted, anteflexed The cervix measures 4.6 cm in length. 2 mm of dilation of the endocervical canal The right ovary is not visualized Left ovary is normal in appearance Clinical age: 10 weeks 0 days Clinical JUAN: 05/17/2024 Ultrasound age: 10 weeks 5 days Ultrasound JUAN: 05/12/2024 US/US OB transvaginal IMPRESSION: Flores intrauterine gestation measuring 10 weeks 5 days 2 mm dilatation of the endocervical canal Electronically authenticated by: MERRILL CROSS Date: 10/20/2023 09:16 Dictated By: Merrill Cross M.D. Signed By: 10/20/23917 DD/ 5 TD/TT: Insurance Commissioner: Procedure Note Radiology, Radiologist, MD - 10/20/2023 [place] [address] Ultrasound Report Signed Patient: LASHONDA TRANMR#: [id number] : 2000Acct:[id number] Age/Sex: 22 / FADM Date: 10/20/23 Loc: US Attending Dr: Gonzalez Noble D.O. Ordering Physician: Gonzalez Noble D.O. Date of Service: 10/20/23 Procedure(s): US OB transvaginal Accession Number(s): [id number] cc: Gonzalez Noble D.O.; JESSICA SAEZ [place] [phone] Patient Name: LASHONDA TRAN MRN: [id number] date: 2000 Sex: F Assigned Patient Location: US Current Patient Location: US Accession/Order Number: [id number] Exam Date: 10/20/2023 08:23 Report Date: 10/20/2023 09:16 At the request of: GONZALEZ NOBLE Procedure: US OB transvaginal EXAMINATION: US OB transvaginal HISTORY: MISSED MENSES COMPARISON: No relevant comparison available. FINDINGS: Flores intrauterine gestation Gestational sac: 5.2 cm, 11 weeks 0 days CRL: 3.8 cm, 10 weeks 5 days Yolk sac: 5.7 mm Heart rate: 1 64 bpm The uterus is normal, anteverted, anteflexed The cervix measures 4.6 cm in length. 2 mm of dilation of the endocervical canal The right ovary is not visualized Left ovary is normal in appearance Clinical age: 10 weeks 0 days Clinical JUAN: 05/17/2024 Ultrasound age: 10 weeks 5 days Ultrasound JUAN: 05/12/2024 US/US OB transvaginal IMPRESSION: Flores intrauterine gestation measuring 10 weeks 5 days 2 mm dilatation of the endocervical canal Electronically authenticated by: MERRILL CROSS Date: 10/20/2023 09:16 Dictated By: Merrill Cross M.D. Signed By:10/20/23917 DD/ 5 TD/TT: Insurance Commissioner: us Gonzalez Real DO [facility] Final Result documented in this encounter Visit Diagnoses Not on filedocumented in this encounter
--- OUTSIDE RECORDS SUMMARY | 2025-05-20 08:37 | XMS_ITS | Clinical Summary ---
Author Organization [facility] Address [address] [place] [address] Care Team Providers Care Assistant Food Service Director Name Role Phone Keny De La Fuente ADVERTISING SALES EXECUTIVE - JOINT MACHINE OPERATOR Primary Care Provide r Allergies Active Allergy Reactions Criticality Noted Date Comments Erythromycin Rash Low 01/04/2024 Latex Hives,Itching,Rash,Swelling Low 10/20/20 23 Medications Vit-Fe Fumarate-FA ( VITAMIN PO) Take 1 tablet by mouth daily Active cephALEXin (KEFLEX) 250 MG capsule Take 1 capsule by mouth 3 times daily 15 capsule 05/19/20 25 Discontinu ed(Therapy completed) Active Problems Problem Noted Date Diagnosed Date Plaque psoriasis 11/11/2024 Cystitis 11/11/2024 Cough with fever 11/11/2024 S/p Celestone 03/24, 5/04/19/2024 Hx C/S x1 04/19/2024 RLTCS w/ RRS 04/19/24 M Apg 02/17 Wt 8#9 04/19/2024 Complete placenta previa nos or without hemorrhage, third trimester 04/19/2024 Choroid plexus cysts, , affecting care of mother, antepartum 01/30/2024 Complete placenta previa nos or without hemorrhage, second trimester 01/11/2024 Second trimester 01/11/2024 Resolved Problems Problem Noted Date Diagnosed Date Resolved Date 35 weeks gestation of 04/13/2024 04/19/2024 34 weeks gestation of 04/06/2024 04/13/2024 High-risk in third trimester 04/06/2024 04/13/2024 gHTN (G2) 04/04/2024 11/11/2024 Overview (04/04/2024): PreE labs wnl, P/C 0.13 on 04/03/24 Ultrasound recheck of pyelectasis, antepartum 04/04/2024 04/19/2024 Choroid plexus cysts, , affecting care of mother, antepartum 04/04/2024 06/05/2024 Suspected anomaly not found 04/04/2024 04/19/2024 LGA (large for gestational a ge) fetus affecting mother, antepartum 04/04/2024 11/11/2024 Encounter for routine screen ing for malformation using ultrasonics 04/04/2024 Ultrasound for scr eening for growth restriction 04/04/2024 04/19/2024 Placenta previa without hemo rrhage, antepartum 04/04/2024 04/19/2024 33 weeks gestation of 04/01/2024 04/09/2024 Placenta previa in third trimester 03/25/2024 11/11/2024 Premature labor 03/25/2024 04/19/2024 Vaginal bleeding in pregnanc y, third trimester 03/25/2024 11/11/2024 32 weeks gestation of 03/25/2024 04/09/2024 Vaginal bleeding 03/24/2024 04/19/2024 Vaginal bleeding during 03/24/2024 04/19/2024 High-risk , unspecified trimester 03/24/2024 11/11/2024 25 weeks gestation of 02/07/2024 03/24/2024 Encounters Date Type Department Care Team Description 05/19/2025 2:30 PM EDT Office Visit [facility] MED Primary Care [address] [place] [address] Keny De La Fuente APRN - [place] Plaque psoriasis (Primary Dx) from Last 3 Months Social History Tobacco Use Types Packs/Day Years Used Date Smoking Tobacco: Never Smokeless Tobacco: Never Tobacco Cessation:Counseling Given: Not Answered Alcohol Use Standard Drinks/Week Comments Never 0 (1 standard drink = 0.6 oz pur e alcohol) [facility] Utilities Answer Date Recorded In the past 12 months has th e electric, gas, oil, or water company [...] place to sleep or slept in a chcf (including now)? No 06/02/2024 [place] Depression Scale Answer Date Recorded Last EPDS [...] on file Sexual Orientation Not on file Last Filed Vital Signs Vital Sign Reading [...] Mass Index 37.94 05/19/2025 2:39 PM EDT Plan of Treatment Health Maintenance Due Date Last Done Comments Varicella vaccine (1 of 2 - 13+ 2-dose series) 2011 HIV screen 2013 HPV vaccine (1 - 3-dose series) 2013 Hepatitis C screen 2016 DTaP/Tdap/Td vaccine (1 - Tdap) 2017 Hepatitis B vaccine (1 of 3 - 19+ 3-dose series) 2017 Pap smear 2019 COVID-19 Vaccine ( - 2023-2 5 season) 2024 Depression Screen 06/02/2025 06/02/2024, 06/02/2024 Flu vaccine (#1) 06/13/2025 Hepatitis A vaccine Aged Out No longe r eligible based on patient's age to complete this topic Hib vaccine Aged Out No longer eligi ble based on patient's age to complete this topic Meningococcal (ACWY) vaccine Aged Out No longer eligible based on patient's age to complete this topic Meningococcal B vaccine Aged Out No l onger eligible based on patient's age to complete this topic Pneumococcal 0-49 years Vaccine Aged Out No longer eligible b ased on patient's age to complete this topic Polio vaccine Aged Out No longer elig ible based on patient's age to complete this topic Insurance [employer] MEDICAID [place] Advance Directives * Full Code (Latest Code Status on File) Date Activated Date Inactivated Comments 04/19/2024 3:58 PM 04/23/2024 5:16 PM * Full Code Date Activated Date Inactivated Comments 03/24/2024 10:20 PM 04/19/2024 3:06 PM * Full Code Date Activated Date Inactivated Comments 03/24/2024 12:47 AM 03/24/2024 10:14 PM * Full Code Date Activated Date Inactivated Comments 02/07/2024 1:16 PM 02/07/2024 6:08 PM Care Teams Assistant Food Service Director Relationship Specialty Start Date End Date Keny De La Fuente APRN - JOINT MACHINE OPERATOR [address] [facility] [place] [address] PCP - General Nurse Practitioner 01/10/25
--- OUTSIDE RECORDS SUMMARY | 2025-05-20 08:37 | XMS_ITS | Encounter Summary ---
Author Organization [facility] Address [address] [place] [address] Care Team Providers Care Hide Measuring Machine Operator Name Role Phone Unavailable Primary Care Provider Unavailabl e Encounter Details Date Type Department Care Team (Late st Contact Info) Description 04/18/2024 Abstract [facility] [address] [place] [phone] Bouchra Marrero LPN [address] [place] [id number] Social History Tobacco Use Types Packs/Day Years [...]
--- OUTSIDE RECORDS SUMMARY | 2025-05-20 08:37 | XMS_ITS | Clinical Summary ---
Author Organization [facility] Address [address] [place] [address] Care Team Providers Care Filer Finish Name Role Phone Unavailable Primary Care Provider Unavailabl e Allergies Active Allergy Reactions Criticality Noted Date Comments Azithromycin Hives Low 10/20/2023 itching Erythromycin Hives,Itching,Rash,Swelling Low 2022 Latex Hives,Itching,Rash,Swelling Low 10/20/20 23 Medications oxyCODONE (Roxicodone) 5 MG immediate release tablet Take 5 mg by mouth every 6 (six) hours if needed for moderate pain or severe pain 04/19/2024 Active ibuprofen 600 MG tablet Take 1 tablet by mouth every 6 (six) hours if needed 04/19/2024 Active Active Problems Problem Noted Date Diagnosed Date Choroid plexus cysts, , affecting care of mother, antepartum ([facility]) 01/30/2024 Complete placenta previa nos or without hemorrhage, second trimester ([facility]) 01/11/2024 Second trimester ([facility]) 01/11/2024 Social History Tobacco Use Types Packs/Day Years Used Date Smoking Tobacco: Never Assessed Comments No Sex and Gender Information Value Date Recorded Sex Assigned at Not on file Legal Sex Female 11:47 PM EDT Gender Identity Not on file Sexual Orientation Not on file Last Filed Vital Signs Vital Sign Reading Time Taken Comments Blood Pressure 110/68 04/30/2024 12:09 PM EDT Pulse - - Temperature - - Respiratory Rate - - Oxygen Saturation - - Inhaled Oxygen Concentration - - Weight 86.2 kg (190 lb) 04/30/2024 12:09 PM EDT Height - - Body Mass Index - - Plan of Treatment Not on file Goals Goal Patient Goal Type Associated Problems Recent Progress Patient-Stated? Author Reminders Care Plan OB Reminders No Open Scheduling, Background Additional Health Concerns Active Problems Noted Date Diagnosed Date OB Reminders 11/27/2023 Insurance [employer] [place]ICA[place]
--- OUTSIDE RECORDS SUMMARY | 2025-05-20 08:37 | XMS_ITS | Encounter Summary ---
Author Organization [facility] Address [address] [place] [address] Care Team Providers Care Licensed Master Social Worker Name Role Phone Unavailable Primary Care Provider Unavailabl e Encounter Details Date Type Department Care Team (Late st Contact Info) Description 12/26/2023 Abstract [facility] [address] [place] [phone] Bouchra Marrero LPN [address] [place] [id number] Social History Tobacco Use Types Packs/Day Years [...]
--- OUTSIDE RECORDS SUMMARY | 2025-05-20 08:37 | XMS_ITS | Encounter Summary ---
Author Organization [facility] Address [address] [place] [address] Care Team Providers Care Disease And Insect Control Boss Name Role Phone Unavailable Primary Care Provider Unavailabl e Encounter Details Date Type Department Care Team (Late st Contact Info) Description 04/19/2024 Abstract [facility] OB [address] [place] [id number] Toshia Fitzgerald LPN Social History Tobacco Use Types Packs/Day Years [...]
--- OUTSIDE RECORDS SUMMARY | 2025-05-20 08:37 | XMS_ITS | Encounter Summary ---
Author Organization [facility] Address [address] [place] [address] Care Team Providers Care Industrial Rehabilitation Consultant Name Role Phone Unavailable Primary Care Provider Unavailabl e Encounter Details Date Type Department Care Team (Late st Contact Info) Description 04/11/2024 Abstract [facility] OB [address] [place] [place] [phone] Quang Noble, DO [address] Robbin Barone, [facility] Social History Tobacco Use Types Packs/Day Years [...]
[2025-05-20 09:37] LABS: Hematocrit 45.3 % (36.0-48.0); Hemoglobin 15.6 g/dL (12.0-16.0); Immature Granulocytes Abs Auto 0.02 10^3/uL (0.00-0.03); Immature Granulocytes Pct Auto 0.2 % (0.0-0.5); Lymphocytes Absolute Auto 2.2 10^3/uL (1.2-3.8); Mean Corpuscular HGB Conc 34.4 g/dL (29.9-35.2); Mean Corpuscular Hemoglobin 29.3 pg (26.7-34.0); Mean Corpuscular Volume 85.2 fL (81.0-99.0); Platelet Count 506 10^3/uL (150-450); Red Blood Count 5.32 10^6/uL (4.20-5.40); White Blood Count 10.0 10^3/uL (4.0-11.0)
[2025-05-20 09:51] LABS: Alanine Aminotransferase 20 U/L (14-59); Albumin Globulin Ratio 1.1; Albumin Level 4.1 g/dL (3.4-5.0); Alkaline Phosphatase 107 U/L (46-116); Anion Gap 16.3; Aspartate Amino Transferase 12 U/L (15-37); Blood Urea Nitrogen 11.0 mg/dL (7.0-18.0); Calcium 8.5 mg/dL (8.5-10.1); Carbon Dioxide 25.3 mmol/L (21.0-32.0); Chloride 105 mmol/L (98-107); Estimated GFR (African America >60 (>=60 mL/min/1.73m^2); Estimated GFR (Non-African Ame >60 (>=60 mL/min/1.73m^2); Globulin 3.6 g/dL; Glucose 99 mg/dL (74-106); Potassium 3.6 mmol/L (3.5-5.1); Sodium 143 mmol/L (136-145); Total Protein 7.7 g/dL (6.4-8.2)
[2025-05-21 04:08] LABS: Vitamin B12 513 pg/mL (232-1245)
[2025-05-24 00:09] LABS: Vitamin B6, Plasma 8.3 ug/L (3.4-65.2)
== END 2025-05-20 08:32 | disposition home or self-care (01) ==
LOC: LAB 08:34
PROVIDERS: PCP Family Medicine; Visit Provider Nurse Practitioner
DX: L40.0 Psoriasis vulgaris (principal)
CPT/HCPCS: 36415; 80053; 82306; 82607; 84207; 85025